=== PATIENT | male | born 1980 | race Caucasian/White ===

== ENCOUNTER 2016-09-15 07:32 | Outpatient (CLI) | payer MEDICARE, MEDICAID ==
[~2016-09-15] VITALS: Ht 166.4 cm; Wt 48.2 kg
[~2016-09-15 07:32] MED LIST: /PANT40TA OR; /PHEN50TA OR; ACET50TA PO; ACET65TA OR; ACET65TA PR; ALLE25CA OR; ALLE25CA PO; ATIV1TAB2 OR; BACTROBAN TOP; BENA25CA PO; BENADRYL PO; BENEPOW8 OR; CALC1250 PO; CALCCHW12 OR; CALCPOW2 PO; CALCTAB22 OR; CARB10SS OR; CARB10SS PO; CETI10TA OR; CETIRIZINE PO; CHLORHEXIDINE; CHLORHEXIDINE OR; COLA100C2 OR; DILA100C OR; DILA100C PO; DILANTIN; DILANTIN PO; DOCU10ELUD PO; DRIS50002 PO; DRISDOL OR; DULCOLAX PR; EPI-PEN; EPI-PEN IM; EPIP0.3I SQ; FERR325T PO; FLEETS ENEMA PR; FORTEO SC; GAS-80CH OR; LACT10SO8 OR; LORTABELIX PO; Lortab PO; MAALSUS OR; MCTOIL PO; MEGA625S PO; METO5TAB2 OR; MIRA255PW PO; MIRALEX OR; MULTI DELYN PO; MULTIVIT OR; MULTLIQ7 PO; MYLASSUD PO; MYLI40DR PO; Mycostatin TOP; NYSTOP TOP; PREV15CA OR; PROTPAK PO; RECLAST IV; SENN15TA2 OR; SENNA-GEN PO; SIME80TA PO; SIMETHICONE PO; TEGR200T OR; TEGRETOL PO; TYLE325T5 PO; VALI5TAB OR; VIT D 2000 PO; VITA; VITAMIN D PO; VITATAB38 PO; ZANT150T OR; ZANT150T PO; ZANTTAB PO; ZITH200S PO; ZOVI400T OR; ZOVI400T PO; ZOVIRAX PO; [UNRECOGNIZED DRUG - OTHER]; [UNRECOGNIZED DRUG - OTHER] PO; [UNRECOGNIZED DRUG - OTHER] PO; [UNRECOGNIZED DRUG - OTHER] PO
[2016-09-15] MEDS ORDERED: ZOLEDRONIC ACID 5 MG in APPROPRIATE DILUENT 1 EA IV ONE (07:45)
[2016-09-15] MEDS ORDERED: HUMI40KI SC (16:13)
== END 2016-09-15 09:00 | disposition home or self-care (01) ==
LOC: M INFU 07:32
PROVIDERS: ATTEND Family Medicine
DX: M81.0 Age-related osteoporosis without current pathological fracture (principal); Z88.0 Allergy status to penicillin; Z88.1 Allergy status to other antibiotic agents; Z79.899 Other long term (current) drug therapy; Z91.048 Other nonmedicinal substance allergy status; Z91.030 Bee allergy status
CPT/HCPCS: 96365; J3489

== ENCOUNTER → 2016-10-14 | Outpatient (CLI) | payer MEDICARE, MEDICAID ==
[~2016-10-14] MED LIST changes: +HUMI40KI SC
[2016-10-14 19:00] LABS: BASO % 0.3 % (0.0-1.0); EOS # 0.3 K/mm3 (0.0-0.50); EOS % 2.6 % (0.0-3.0); LARGE UNSTAINED CELL # 0.2 K/mm3 (0.0-0.4); LYMPH # 3.2 K/mm3 (1.5-4.5); LYMPH % 25.9 % (24.0-44.0); MEAN CORPUSCULAR HEMOGLOBIN 31.9 pg (27.0-33.0); MEAN CORPUSCULAR HGB CONC 35.2 g/dl (32.0-36.5); MEAN CORPUSCULAR VOLUME 90.5 fl (80.0-96.0); MONO # 0.7 K/mm3 (0.0-0.8); MONO % 6.3 % (0.0-5.0); NEUTROPHILS # 7.3 K/mm3 (1.8-7.7); NEUTROPHILS % 62.9 % (36.0-66.0); PLATELET COUNT, AUTOMATED 486 k/mm3 (150-450); WHITE BLOOD COUNT 11.6 K/mm3 (4.0-10.0)
[2016-10-14 19:47] LABS: ERYTHROCYTE SEDIMENTATION RATE 25 mm/hr (0-15)
--- NOTE | 2016-10-14 21:00 | REP ---
BILATERAL FOOT, EIGHT VIEWS: HISTORY: Cellulitis. RIGHT FOOT, FOUR VIEWS: COMPARISON: 01/11/2015 There is no acute fracture or dislocation. The joint spaces are normal in appearance. An osteophyte is present in the inferior calcaneus. IMPRESSION: There is no acute fracture or dislocation. LEFT FOOT, FOUR VIEWS: There is no acute fracture or dislocation. The joint spaces are normal in appearance. An osteophyte is present on the inferior calcaneus. IMPRESSION: There is no acute fracture or dislocation. Signed by José Manuel Guzman MD 10/15/2016 08:03 A
== END ==
LOC: M LAB 18:00
PROVIDERS: ATTEND Physician Assistant Medical
DX: L03.119 Cellulitis of unspecified part of limb (principal)
CPT/HCPCS: 36415; 73630; 85025; 85652; 86140; G0463

== ENCOUNTER → 2016-10-23 | Outpatient (CLI) | payer MEDICARE, MEDICAID ==
[2016-10-23 06:50] LABS: BASO % 0.2 % (0.0-1.0); EOS # 0.2 K/mm3 (0.0-0.50); EOS % 2.4 % (0.0-3.0); LARGE UNSTAINED CELL # 0.2 K/mm3 (0.0-0.4); LARGE UNSTAINED CELL % 2.9 % (0.0-4.0); LYMPH # 2.1 K/mm3 (1.5-4.5); LYMPH % 30.4 % (24.0-44.0); MEAN CORPUSCULAR HEMOGLOBIN 31.9 pg (27.0-33.0); MEAN CORPUSCULAR HGB CONC 34.5 g/dl (32.0-36.5); MEAN CORPUSCULAR VOLUME 92.4 fl (80.0-96.0); MONO # 0.5 K/mm3 (0.0-0.8); MONO % 7.9 % (0.0-5.0); NEUTROPHILS # 3.6 K/mm3 (1.8-7.7); NEUTROPHILS % 56.3 % (36.0-66.0); PLATELET COUNT, AUTOMATED 453 k/mm3 (150-450); WHITE BLOOD COUNT 6.4 K/mm3 (4.0-10.0)
[2016-10-23 07:03] LABS: ALBUMIN 4.2 GM/DL (3.2-5.2); ALKALINE PHOSPHATASE 98 U/L (45-117); ALT/SGPT 34 U/L (12-78); ANION GAP 10 MEQ/L (8-16); AST/SGOT 28 U/L (15-37); BILIRUBIN,TOTAL 0.3 MG/DL (0.2-1.0); BLOOD UREA NITROGEN 11 MG/DL (7-18); CALCIUM LEVEL 8.6 MG/DL (8.5-10.1); CARBAMAZEPINE (TEGRETOL) LEVEL 7.9 UG/ML (4.0-10.0); CARBON DIOXIDE LEVEL 23 MEQ/L (21-32); CHLORIDE LEVEL 104 MEQ/L (98-107); CREATININE FOR GFR 0.78 MG/DL (0.70-1.30); GLOMERULAR FILTRATION RATE > 60.0 (>60); GLUCOSE, FASTING 91 MG/DL (70-105); POTASSIUM SERUM 4.3 MEQ/L (3.5-5.1); SODIUM LEVEL 137 MEQ/L (136-145); TOTAL PROTEIN 7.7 GM/DL (6.4-8.2)
[2016-10-23 08:27] LABS: ERYTHROCYTE SEDIMENTATION RATE 13 mm/hr (0-15)
[2016-10-23 13:12] LABS: ALBUMIN % 59.7 % (55.8-66.1); GAMMA GLOBULIN % 15.8 % (11.1-18.8)
== END ==
LOC: M LAB 05:59
PROVIDERS: ATTEND Family Medicine
DX: D50.9 Iron deficiency anemia, unspecified (principal); E55.9 Vitamin D deficiency, unspecified; K63.89 Other specified diseases of intestine; G40.909 Epilepsy, unspecified, not intractable, without status epilepticus

== ENCOUNTER → 2016-11-08 | Outpatient (REF) | payer MEDICARE, MEDICAID | LOC: M LAB REF 21:09 | PROVIDERS: ATTEND Family Medicine | DX: K63.89 Other specified diseases of intestine (principal) ==

== ENCOUNTER → 2016-11-11 | Outpatient (CLI) | payer MEDICARE, MEDICAID ==
[2016-11-11 16:26] LABS: BASO % 0.1 % (0.0-1.0); EOS # 0.2 K/mm3 (0.0-0.50); EOS % 1.3 % (0.0-3.0); LARGE UNSTAINED CELL # 0.3 K/mm3 (0.0-0.4); LARGE UNSTAINED CELL % 2.2 % (0.0-4.0); LYMPH # 3.2 K/mm3 (1.5-4.5); LYMPH % 26.4 % (24.0-44.0); MEAN CORPUSCULAR HEMOGLOBIN 31.7 pg (27.0-33.0); MEAN CORPUSCULAR HGB CONC 35.1 g/dl (32.0-36.5); MEAN CORPUSCULAR VOLUME 90.3 fl (80.0-96.0); MONO # 0.8 K/mm3 (0.0-0.8); MONO % 6.9 % (0.0-5.0); NEUTROPHILS % 63.1 % (36.0-66.0); PLATELET COUNT, AUTOMATED 482 k/mm3 (150-450); RED CELL DISTRIBUTION WIDTH 11.8 % (11.5-14.5); WHITE BLOOD COUNT 11.1 K/mm3 (4.0-10.0)
[2016-11-11 16:44] LABS: CARBAMAZEPINE (TEGRETOL) LEVEL 11.2 UG/ML (4.0-10.0); PERCENT SATURATION 27.6 % (19.7-37.4)
[2016-11-11 17:33] LABS: ERYTHROCYTE SEDIMENTATION RATE 15 mm/hr (0-15)
== END ==
LOC: M LAB 15:45
PROVIDERS: ATTEND Family Medicine
DX: D50.9 Iron deficiency anemia, unspecified (principal); K63.89 Other specified diseases of intestine; G40.909 Epilepsy, unspecified, not intractable, without status epilepticus; E55.9 Vitamin D deficiency, unspecified

== ENCOUNTER → 2016-11-17 | Outpatient (REF) | payer MEDICARE, MEDICAID | LOC: M SFHCPLAZ 10:02 | PROVIDERS: ATTEND Family Medicine | DX: L03.115 Cellulitis of right lower limb (principal) | CPT/HCPCS: 36415; 82785; 86140; G0463 ==

== ENCOUNTER → 2016-11-18 | Outpatient (CLI) | payer MEDICARE, MEDICAID ==
[2016-11-18 16:45] LABS: BASO % 0.3 % (0.0-1.0); EOS # 0.3 K/mm3 (0.0-0.50); EOS % 2.2 % (0.0-3.0); LARGE UNSTAINED CELL # 0.2 K/mm3 (0.0-0.4); LARGE UNSTAINED CELL % 1.8 % (0.0-4.0); LYMPH # 3.2 K/mm3 (1.5-4.5); LYMPH % 25.5 % (24.0-44.0); MEAN CORPUSCULAR HGB CONC 35.5 g/dl (32.0-36.5); MEAN CORPUSCULAR VOLUME 90.3 fl (80.0-96.0); MONO # 0.8 K/mm3 (0.0-0.8); MONO % 6.4 % (0.0-5.0); NEUTROPHILS # 7.5 K/mm3 (1.8-7.7); NEUTROPHILS % 63.7 % (36.0-66.0); PLATELET COUNT, AUTOMATED 503 k/mm3 (150-450); RED CELL DISTRIBUTION WIDTH 12.4 % (11.5-14.5); WHITE BLOOD COUNT 11.7 K/mm3 (4.0-10.0)
== END ==
LOC: M LAB 15:41
PROVIDERS: ATTEND Family Medicine
DX: L03.115 Cellulitis of right lower limb (principal)

== ENCOUNTER → 2016-12-11 | Outpatient (REF) | payer MEDICARE, MEDICAID ==
[~2016-12-11] MED LIST changes: +ACYC400T PO; +BENA25CA4 PO; +BUDE3CAP PO; +CERACRE EX; +CETI10TA PO; +D 50CAP PO; +DILA50HA PO; +EPIP0.3I2 IM; +EQ A1CRE3 EXT; +GAS80CHW PO; +HYDR25T PO; +HYDRCRE EX; +LEVA750T PO; +OCTR100I SQ; +VITA5ELUD PO; +[UNRECOGNIZED DRUG - CODE] PO
== END ==
LOC: M SFHCPLAZ 09:47
PROVIDERS: ATTEND Family Medicine
DX: R19.7 Diarrhea, unspecified (principal)
CPT/HCPCS: 87507; G0463

== ENCOUNTER → 2016-12-12 | Outpatient (CLI) | payer MEDICARE, MEDICAID ==
[~2016-12-12] MED LIST changes: -ACYC400T PO; -LEVA750T PO; -OCTR100I SQ
[2016-12-12 18:39] LABS: ALBUMIN 4.2 GM/DL (3.2-5.2); ALBUMIN/GLOBULIN RATIO 0.95 (1.00-1.93); ALKALINE PHOSPHATASE 159 U/L (45-117); ALT/SGPT 37 U/L (12-78); ANION GAP 15 MEQ/L (8-16); AST/SGOT 25 U/L (15-37); BILIRUBIN,TOTAL 0.2 MG/DL (0.2-1.0); BLOOD UREA NITROGEN 59 MG/DL (7-18); CALCIUM LEVEL 9.2 MG/DL (8.5-10.1); CARBON DIOXIDE LEVEL 18 MEQ/L (21-32); CHLORIDE LEVEL 90 MEQ/L (98-107); CREATININE FOR GFR 1.19 MG/DL (0.70-1.30); GLOMERULAR FILTRATION RATE > 60.0 (>60); GLUCOSE, FASTING 138 MG/DL (70-105); POTASSIUM SERUM 3.5 MEQ/L (3.5-5.1); SODIUM LEVEL 123 MEQ/L (136-145); TOTAL PROTEIN 8.6 GM/DL (6.4-8.2)
[2016-12-12 19:18] LABS: MEAN CORPUSCULAR HEMOGLOBIN 31.4 pg (27.0-33.0); MEAN CORPUSCULAR HGB CONC 35.2 g/dl (32.0-36.5); MEAN CORPUSCULAR VOLUME 89.1 fl (80.0-96.0); PLATELET COUNT, AUTOMATED 748 k/mm3 (150-450); RED CELL DISTRIBUTION WIDTH 11.8 % (11.5-14.5); WHITE BLOOD COUNT 14.5 K/mm3 (4.0-10.0)
[2016-12-12 20:10] LABS: BANDS 1 % (< 11)
== END ==
LOC: M LAB 15:44
PROVIDERS: ATTEND Family Medicine
DX: R19.7 Diarrhea, unspecified (principal)

== ENCOUNTER 2016-12-15 13:42 | Inpatient (IN) | payer MEDICARE, MEDICAID ==
[~2016-12-15] VITALS: Ht 172.7 cm; Wt 46.8 kg
[~2016-12-15 13:42] MED LIST changes: -BENA25CA4 PO; -BUDE3CAP PO; -CERACRE EX; -CETI10TA PO; -D 50CAP PO; -DILA50HA PO; -EPIP0.3I2 IM; -EQ A1CRE3 EXT; -GAS80CHW PO; -HYDR25T PO; -HYDRCRE EX; -LEVA750T PO; -VITA5ELUD PO; -[UNRECOGNIZED DRUG - CODE] PO
[2016-12-15] MEDS ORDERED: [UNRECOGNIZED DRUG - CODE] PO (14:02)
[2016-12-15] MEDS ORDERED: D 50CAP PO (14:02)
[2016-12-15] MEDS ORDERED: SODIUM CHLORIDE 0.9% 1000 ML IV ONE (14:45)
[2016-12-15] MEDS ORDERED: CALC1250 PO (14:58)
[2016-12-15] MEDS ORDERED: BENA25CA4 PO (14:58)
[2016-12-15] MEDS ORDERED: DILA50HA PO ×3 (14:58→15:00)
[2016-12-15] MEDS ORDERED: SIME80TA PO (14:58)
[2016-12-15] MEDS ORDERED: VITA5ELUD PO (15:04)
[2016-12-15] MEDS ORDERED: GAS80CHW PO (15:04)
[2016-12-15] MEDS ORDERED: BUDE3CAP PO (15:07)
[2016-12-15] MEDS ORDERED: CETI10TA PO (15:07)
[2016-12-15] MEDS ORDERED: HYDR25T PO (15:07)
[2016-12-15] MEDS ORDERED: EQ A1CRE3 EXT (15:12)
[2016-12-15] MEDS ORDERED: HYDRCRE EX (15:12)
[2016-12-15] MEDS ORDERED: CERACRE EX (15:12)
[2016-12-15] MEDS ORDERED: EPIP0.3I2 IM (15:16)
[2016-12-15] MEDS ORDERED: hydrOXYzine 25 MG TAB PO PRN (15:45)
[2016-12-15] MEDS ORDERED: diphenhydrAMINE 25 MG CAP PO PRN (15:45)
[2016-12-15] MEDS: CARBAMAZEPINE 200 MG/10 ML PO SCH ×2 (16:00→21:45)
[2016-12-15] MEDS: CALCIUM CARB SUSP 1250MG/5ML UNIT DOSE CUP PO SCH ×2 (16:00→21:46)
[2016-12-15] MEDS: SIMETHICONE 80 MG CHEW TAB PO SCH ×2 (16:00→21:46)
[2016-12-15] MEDS: BUDESONIDE EC 3 MG CAP (ENTOCORT EC) PO SCH ×2 (16:00→21:46)
[2016-12-15 16:37] LABS: MEAN CORPUSCULAR HEMOGLOBIN 31.5 pg (27.0-33.0); MEAN CORPUSCULAR HGB CONC 36.3 g/dl (32.0-36.5); MEAN CORPUSCULAR VOLUME 86.7 fl (80.0-96.0); RED CELL DISTRIBUTION WIDTH 11.8 % (11.5-14.5); WHITE BLOOD COUNT 17.8 K/mm3 (4.0-10.0)
[2016-12-15 16:54] LABS: CARBAMAZEPINE (TEGRETOL) LEVEL 8.6 UG/ML (4.0-10.0)
[2016-12-15 17:32] LABS: BANDS 2 % (< 11); EOSINOPHILS 2 % (0-5)
--- NOTE | 2016-12-15 17:52 | REP ---
AP PORTABLE CHEST: 12/15/2016: Comparison: 11/30/2014, 03/03/2014. Clinical history: Possible infiltrate. Findings: Single portable view shows no evidence of effusion. There is no lateral pleural thickening or apical scarring. Slight rotation of the chest. Slight elevation of the right diaphragm exaggerated by obliquity. No visible consolidation, atelectasis or mass and no cardiomegaly or edema. The aorta is normal. The bones are grossly intact. There is no free air under the diaphragm. Stomach bubble and the left colon are well inflated in the left upper quadrant. Impression: 1. Slight elevation of the right diaphragm, but no visible infiltrate, effusion, cardiomegaly or edema. Negative portable chest. Signed by Chong Richard MD 12/15/2016 08:36 P
[2016-12-15 18:05] LABS: ALBUMIN 4.2 GM/DL (3.2-5.2); ALBUMIN/GLOBULIN RATIO 0.93 (1.00-1.93); ALKALINE PHOSPHATASE 139 U/L (45-117); ALT/SGPT 34 U/L (12-78); ANION GAP 17 MEQ/L (8-16); AST/SGOT 29 U/L (15-37); BILIRUBIN,TOTAL 0.2 MG/DL (0.2-1.0); BLOOD UREA NITROGEN 78 MG/DL (7-18); CALCIUM LEVEL 8.7 MG/DL (8.5-10.1); CARBON DIOXIDE LEVEL 15 MEQ/L (21-32); CHLORIDE LEVEL 87 MEQ/L (98-107); GLOMERULAR FILTRATION RATE > 60.0 (>60); GLUCOSE, FASTING 112 MG/DL (70-105); MAGNESIUM LEVEL 2.2 MG/DL (1.8-2.4); POTASSIUM SERUM 3.7 MEQ/L (3.5-5.1); TOTAL PROTEIN 8.7 GM/DL (6.4-8.2)
[2016-12-15 18:07] LABS: SODIUM LEVEL 119 MEQ/L (136-145)
--- NOTE | 2016-12-15 18:22 | IPNPDOC ---
Text Note Date of Service The patient was seen on 12/15/16. NOTE Subjective: Patient is an 81 year old male with a PMHx of Mental retardation 2/2 anoxic brain injury, Seizure disorder, Chronic anemia, Chrons disease s/p colostomy, HSV, Hx of Nephrolithiasis, Osteoporosis, and GERD who presented to the ER because of increased output from his ostomy site and low sodium levels. Family has noted that he has not been having fevers at home, just that the output from his colostomy site has become liquid in nature. They have seen Dr. Lois Myers today and were sent as a direct admission, but presented to the ER instead. Patient is non-verbal at baseline and is unable to provide any other details to the story. Objective: Vitals (See below) General: Lying in bed, no acute distress, awake + alert HEENT: NC, AT CVS: RRR, +S1S2 Lungs: Fair air entry b/l, -w/r/r Abdomen: Soft, ND, NT, +BSx4; + Colostomy (liquid stool) Extremities: +PPx4, - Edema, - Calf tenderness Assessment and plan: 1. Hypovolemic Hyponatremia, Isotonic - Asymptomatic - Review of labs shows that he has been hyponatremic since at least 12/12/2016 - Physical shows that he appears dehydrated - Labs shows that he has an elevation in creatinine - Serum osmolality is 279 - Will start Gentle IV fluid hydration - Will check CMP p1acvhf initially 2. Elevated Creatine - likely 2/2 acute kidney injury - likely 2/2 pre-renal etiology - will check urine electrolytes, and urinalysis - will c/w gentle IV fluid hydration 3. Increased output via colostomy - possibly 2/2 gastroenteritis, possibly flare of inflammatory bowel disease - Physical without any abdominal tenderness - WBC elevated - GI panel from 3 days ago has been negative - will check ESR / CRP - Will check blood cultures, ua, urinalysis, cxr - will start meropenem (coverage of intra-abdominal source of infection) - will hold off on steroids pending ESR / CRP 3. Hx of Seizures - no seizures in last 3 years - phenytoin level low - will give one dose via IV - c/w PO medications - f/u AM phenytoin level 4. Normocytic anemia - Hg at baseline - will follow 5. 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 Crohn disease s/p colostomy - will check ESR / CRP - c/w budesonide 7.HSV 8. Hx of Nephrolithiasis 9. Osteoporosis 10. GERD 11. DVT prophylaxis - c/w SCDs VS,Fishbone, I+O VS, Fishbone, I+O Laboratory Tests 12/15/16 15:39 Vital Signs Date Time Temp Pulse Resp B/P (MAP) Pulse Ox O2 Delivery O2 Flow Rate FiO2 12/15/16 13:43 97.6 104 16 115/64 (81) 100 Room Air ANGELA TOMLINSON MD December 15, 2016 18:22
[2016-12-15] MEDS ORDERED: PHENYTOIN 100 MG/2 ML VIAL (J1165) IV ONE (19:00)
[2016-12-15 19:22] LABS: ERYTHROCYTE SEDIMENTATION RATE 41 mm/hr (0-15)
[2016-12-15 19:28] LABS: ANION GAP 14 MEQ/L (8-16); BLOOD UREA NITROGEN 72 MG/DL (7-18); CALCIUM LEVEL 8.8 MG/DL (8.5-10.1); CARBON DIOXIDE LEVEL 17 MEQ/L (21-32); CHLORIDE LEVEL 90 MEQ/L (98-107); CREATININE FOR GFR 1.18 MG/DL (0.70-1.30); GLOMERULAR FILTRATION RATE > 60.0 (>60); GLUCOSE, FASTING 111 MG/DL (70-105); POTASSIUM SERUM 3.7 MEQ/L (3.5-5.1); SODIUM LEVEL 121 MEQ/L (136-145)
[2016-12-15 20:13] VITALS: BP 103/61
[2016-12-15] MEDS: MEROPENEM INJ 1 GM in D5W MINI-BAG PLUS 100 ML IV SCH (20:55)
[2016-12-15] MEDS: NS 1,000 ML IV SCH (20:55)
[2016-12-15 21:20] VITALS: BP 97/56
[2016-12-15 21:21] LABS: INR 0.99
[2016-12-15 21:25] LABS: ANION GAP 13 MEQ/L (8-16); BLOOD UREA NITROGEN 70 MG/DL (7-18); CALCIUM LEVEL 8.4 MG/DL (8.5-10.1); CARBON DIOXIDE LEVEL 19 MEQ/L (21-32); CHLORIDE LEVEL 91 MEQ/L (98-107); CREATININE FOR GFR 1.16 MG/DL (0.70-1.30); GLOMERULAR FILTRATION RATE > 60.0 (>60); GLUCOSE, FASTING 119 MG/DL (70-105); POTASSIUM SERUM 3.5 MEQ/L (3.5-5.1); SODIUM LEVEL 123 MEQ/L (136-145)
[2016-12-15] MEDS: PHENYTOIN 50 MG CHEW TABLET PO SCH (21:46)
[2016-12-15] MEDS: HEPARIN SOD (PORCINE) 5000 UNITS/ML VIAL SQ SCH (21:48)
--- NOTE | 2016-12-15 23:04 | ECGEPIP ---
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 CONSIDER INCOMPLETE LEFT BUNDLE BRANCH BLOCK ABNORMAL RHYTHM ECG COMPARED TO THE LAST 2 TRACINGS IN THE SYSTEM, HEART RATE IS NOW MUCH SLOWER Electronically Signed On 12-15-2016 23:04:10 EDT by Nadeem Love
[2016-12-16] VITALS: BP 98/62
[2016-12-16] MEDS: ONDANSETRON 4MG/2ML VIAL (J2405) IV PRN ×2 (00:43→06:33)
[2016-12-16 01:25] LABS: ANION GAP 11 MEQ/L (8-16); BLOOD UREA NITROGEN 64 MG/DL (7-18); CALCIUM LEVEL 8.8 MG/DL (8.5-10.1); CARBON DIOXIDE LEVEL 20 MEQ/L (21-32); CHLORIDE LEVEL 94 MEQ/L (98-107); CREATININE FOR GFR 0.99 MG/DL (0.70-1.30); GLOMERULAR FILTRATION RATE > 60.0 (>60); GLUCOSE, FASTING 116 MG/DL (70-105); POTASSIUM SERUM 3.2 MEQ/L (3.5-5.1); SODIUM LEVEL 125 MEQ/L (136-145)
[2016-12-16] MEDS: MEROPENEM INJ 1 GM in D5W MINI-BAG PLUS 100 ML IV SCH ×3 (03:28→18:03)
[2016-12-16 04:00] VITALS: BP 99/57
[2016-12-16] MEDS: HEPARIN SOD (PORCINE) 5000 UNITS/ML VIAL SQ SCH ×3 (05:19→21:20)
[2016-12-16 06:23] LABS: BASO % 0.2 % (0.0-1.0); EOS # 0.2 K/mm3 (0.0-0.50); EOS % 0.9 % (0.0-3.0); LARGE UNSTAINED CELL # 0.2 K/mm3 (0.0-0.4); LARGE UNSTAINED CELL % 0.9 % (0.0-4.0); LYMPH # 2.2 K/mm3 (1.5-4.5); LYMPH % 9.5 % (24.0-44.0); MEAN CORPUSCULAR HEMOGLOBIN 31.3 pg (27.0-33.0); MEAN CORPUSCULAR HGB CONC 36.4 g/dl (32.0-36.5); MEAN CORPUSCULAR VOLUME 86.1 fl (80.0-96.0); MONO % 4.9 % (0.0-5.0); NEUTROPHILS # 17.8 K/mm3 (1.8-7.7); NEUTROPHILS % 83.7 % (36.0-66.0); PLATELET COUNT, AUTOMATED 688 k/mm3 (150-450); RED CELL DISTRIBUTION WIDTH 11.9 % (11.5-14.5); WHITE BLOOD COUNT 21.3 K/mm3 (4.0-10.0)
[2016-12-16 06:42] LABS: ALBUMIN 3.8 GM/DL (3.2-5.2); ALKALINE PHOSPHATASE 130 U/L (45-117); ALT/SGPT 30 U/L (12-78); ANION GAP 10 MEQ/L (8-16); AST/SGOT 23 U/L (15-37); BILIRUBIN,TOTAL 0.3 MG/DL (0.2-1.0); BLOOD UREA NITROGEN 51 MG/DL (7-18); CALCIUM LEVEL 8.6 MG/DL (8.5-10.1); CARBON DIOXIDE LEVEL 19 MEQ/L (21-32); CHLORIDE LEVEL 97 MEQ/L (98-107); CREATININE FOR GFR 0.91 MG/DL (0.70-1.30); GLOMERULAR FILTRATION RATE > 60.0 (>60); GLUCOSE, FASTING 104 MG/DL (70-105); MAGNESIUM LEVEL 2.2 MG/DL (1.8-2.4); POTASSIUM SERUM 3.9 MEQ/L (3.5-5.1); SODIUM LEVEL 126 MEQ/L (136-145); TOTAL PROTEIN 7.6 GM/DL (6.4-8.2)
[2016-12-16 07:30] VITALS: BP 91/57
[2016-12-16] MEDS: SIMETHICONE 80 MG CHEW TAB PO SCH ×3 (08:34→21:20)
[2016-12-16] MEDS: PHENYTOIN 50 MG CHEW TABLET PO SCH ×3 (08:35→21:19)
[2016-12-16] MEDS: CALCIUM CARB SUSP 1250MG/5ML UNIT DOSE CUP PO SCH ×3 (08:35→21:19)
[2016-12-16] MEDS: VITAMIN D 1,000 INTERNATIONAL UNITS TABLET PO SCH (08:35)
[2016-12-16] MEDS: CETIRIZINE (ZyrTEC) 10 MG TAB PO SCH (08:35)
[2016-12-16] MEDS: CARBAMAZEPINE 200 MG/10 ML PO SCH ×3 (08:35→21:20)
[2016-12-16] MEDS: BUDESONIDE EC 3 MG CAP (ENTOCORT EC) PO SCH ×3 (09:00→21:19)
[2016-12-16] MEDS ORDERED: GASTROGRAFIN SOLUTION 30ML PO ONE (09:30)
[2016-12-16] MEDS: NS 1,000 ML IV SCH ×2 (09:36→18:03)
[2016-12-16] MEDS ORDERED: GASTROGRAFIN SOLUTION 30ML (Q9963) PO ONE (10:00)
[2016-12-16 10:45] VITALS: BP 107/59
--- NOTE | 2016-12-16 11:10 | IPNPDOC ---
Subjective Date Seen The patient was seen on 12/16/16. Subjective Chief Complaint/HPI The patient is a 36-year-old male admitted with a reason for visit of Diarrhea; Hyponatremia. Events since last encounter Pt's mom and step dad at bedside. He seems to be doing alright this morning. They have no new concerns althought are anxious to find out the source of his condition. General: Reports: ROS Unobtainable Objective Physical Examination General Exam: Positive: Alert, No Acute Distress ENT Exam: Positive: Mucous membr. moist/pink Neck Exam: Positive: Supple Chest Exam: Positive: Clear to auscultation, Normal air movement Heart Exam: Positive: Tachycardic, Regular Rhythm Abdomen Exam: Positive: BS Hyperactive, Soft, Tenderness (difficult to determine d/t MR, pt grimaces whenever/wherever he is touched) Extremity Exam: Negative: Edema Skin Exam: Negative: Nl turgor and temperature Assessment /Plan Problems (1) Hyponatremia Status: Acute Response to Treatment: Improving Problem Specific Plan: Monitor Clinically, Repeat Labs Problem Text: acute hypotonic hypovolemic change to PICC given poor peripheral access slow improvement with NS 40 cc/hr, NA 126 this morning, 121 on admission. (2) Leukocytosis Status: Acute Response to Treatment: Worse Discussed With: Family with Pt Consent Problem Specific Plan: Monitor Clinically, Repeat Labs Problem Text: meropenem D2 12/15/16 BCX -2 12/14/16 CRP 0.3/ESR 40-obviously not c/w IBD 12/11/16 GI panel - WBC increased from 18 to 21 overnight, GI panel Neg, colostomy continues to have watery brown stool. Pt is afebrile. (3) Diarrhea Status: Acute Discussed With: Family with Pt Consent Problem Specific Plan: Consult Specialist, Monitor Clinically Problem Text: 05/06/16-09/17/16 Humira 20 q2W s improvement of weight loss/diarrhea/inflammatory markers 04/2016 SBFT s obvious disease 03/2016 [facility] c/w Crohn's c high risk of aggressive disease follows trang Zavala as outpatient (4) Normocytic anemia Status: Acute Problem Specific Plan: Monitor Clinically, Repeat Labs Problem Text: Hgb down to 11.3, today, he is receiving IVF and was previously hospitalized and on IVF as well. Normcytic, Cont to monitor. (5) Seizure disorder Status: Chronic Response to Treatment: Stable Problem Specific Plan: Monitor Clinically Problem Text: Stable on HD phenytoin/carba 12/15/16 pheny/carba 02/22-stable (6) Mental retardation Status: Chronic Problem Specific Plan: Monitor Clinically Plan/VTE VTE Prophylaxis Ordered?: Yes Plan/Urinary Catheter Reason for insertion/continuin: Critical Pt monitoring VS, I&O, 24H, Fishbone Vital Signs/I&O Vital Signs Date Time Temp Pulse Resp B/P (MAP) Pulse Ox O2 Delivery O2 Flow Rate FiO2 12/16/16 08:00 99 12/16/16 07:30 98.4 18 91/57 (68) 99 Room Air I&O- Last 24 Hours up to 6 AM 12/16/16 06:00 Intake Total 1060 ml Balance 1060 ml Laboratory Data 24H LABS Laboratory Tests 2 12/15/16 15:39: Neutrophils 72, Band Neutrophils 2, Lymphocytes (Manual) 19, Monocytes (Manual) 5, Eosinophils (Manual) 2, Platelet Estimate INCREASED, Red Blood Cell Morphology NORMAL, Erythrocyte Sedimentation Rate 41H, Anion Gap 17H, Glomerular Filtration Rate > 60.0, Osmolality 279, Blood Urea Nitrogen 78H, Creatinine 1.40H, Sodium Level 119*L, Potassium Level 3.7, Chloride Level 87L, Carbon Dioxide Level 15L, Calcium Level 8.7, Aspartate Amino Transf (AST/SGOT) 29, Alanine Aminotransferase (ALT/SGPT) 34, Alkaline Phosphatase 139H, Total Bilirubin 0.2, Total Protein 8.7H, Albumin 4.2, Magnesium Level 2.2, Albumin/ Globulin Ratio 0.93L, Phenytoin (Dilantin) Level 7.3L, Carbamazepine (Tegretol) Level 8.6 12/15/16 18:34: Anion Gap 14, Glomerular Filtration Rate > 60.0, Blood Urea Nitrogen 72H, Creatinine 1.18, Sodium Level 121L, Potassium Level 3.7, Chloride Level 90L, Carbon Dioxide Level 17L, Calcium Level 8.8, C-Reactive Protein, Quantitative 0.31H 12/15/16 20:51: Anion Gap 13, Glomerular Filtration Rate > 60.0, Blood Urea Nitrogen 70H, Creatinine 1.16, Sodium Level 123L, Potassium Level 3.5, Chloride Level 91L, Carbon Dioxide Level 19L, Calcium Level 8.4L, Prothrombin Time 13.2, Prothromb Time International Ratio 0.99, Lactic Acid Level 1.2 12/15/16 22:59: 12/16/16 00:59: Anion Gap 11, Glomerular Filtration Rate > 60.0, Blood Urea Nitrogen 64H, Creatinine 0.99, Sodium Level 125L, Potassium Level 3.2L, Chloride Level 94L, Carbon Dioxide Level 20L, Calcium Level 8.8 12/16/16 06:08: Anion Gap 10, Glomerular Filtration Rate > 60.0, Blood Urea Nitrogen 51H, Creatinine 0.91, Sodium Level 126L, Potassium Level 3.9#, Chloride Level 97L, Carbon Dioxide Level 19L, Calcium Level 8.6, White Blood Count 21.3H, Red Blood Count 3.76L, Hemoglobin 11.8L, Hematocrit 32.4L, Mean Corpuscular Volume 86.1, Mean Corpuscular Hemoglobin 31.3, Mean Corpuscular Hemoglobin Concent 36.4, Red Cell Distribution Width 11.9, Platelet Count 688H, Neutrophils (%) (Auto) 83.7H , Lymphocytes (%) (Auto) 9.5L, Monocytes (%) (Auto) 4.9, Eosinophils (%) (Auto) 0.9, Basophils (%) (Auto) 0.2, Neutrophils # (Auto) 17.8H, Lymphocytes # (Auto) 2.2, Monocytes # (Auto) 1.0H, Eosinophils # (Auto) 0.2, Basophils # (Auto) 0.0, Large Unclassified Cells % 0.9, Large Unclassified Cells # 0.2, Aspartate Amino Transf (AST/SGOT) 23, Alanine Aminotransferase (ALT/SGPT) 30, Alkaline Phosphatase 130H, Total Bilirubin 0.3, Total Protein 7.6, Albumin 3.8, Magnesium Level 2.2, C-Reactive Protein, Quantitative 0.33H, Albumin/Globulin Ratio 1.00, Phenytoin (Dilantin) Level 6.3L CBC/BMP Laboratory Tests 12/15/16 15:39 Calcium Level 8.7, Aspartate Amino Transf (AST/SGOT) 29, Alanine Aminotransferase (ALT/SGPT) 34, Alkaline Phosphatase 139 H, Total Bilirubin 0.2 , Total Protein 8.7 H, Albumin 4.2 12/15/16 18:34 Calcium Level 8.8 12/15/16 20:51 Calcium Level 8.4 L 12/16/16 00:59 Calcium Level 8.8 12/16/16 06:08 Red Blood Count 3.76 L, Mean Corpuscular Volume 86.1, Mean Corpuscular Hemoglobin 31.3, Mean Corpuscular Hemoglobin Concent 36.4, Red Cell Distribution Width 11.9, Neutrophils (%) (Auto) 83.7 H, Lymphocytes (%) (Auto) 9.5 L, Monocytes (%) (Auto) 4.9, Eosinophils (%) (Auto) 0.9, Basophils (%) (Auto ) 0.2, Neutrophils # (Auto) 17.8 H, Lymphocytes # (Auto) 2.2, Monocytes # (Auto ) 1.0 H, Eosinophils # (Auto) 0.2, Basophils # (Auto) 0.0, Calcium Level 8.6, Aspartate Amino Transf (AST/SGOT) 23, Alanine Aminotransferase (ALT/SGPT) 30, Alkaline Phosphatase 130 H, Total Bilirubin 0.3, Total Protein 7.6, Albumin 3.8 Microbiology Microbiology 12/15/16 Blood Culture, Received Pending 12/15/16 Blood Culture, Received Pending RADHA LIRIANO PA-C December 16, 2016 11:10 Cedrick Myers M.D. December 16, 2016 13:43
[2016-12-16 12:00] VITALS: BP 112/83
--- NOTE | 2016-12-16 17:22 | REP ---
CT ABDOMEN AND PELVIS WITH IV CONTRAST ONLY: HISTORY: Diarrhea. COMPARISON: Multiple, the latest 02/09/2016 CONTRAST: 100 mL of Isovue-370 There is no change in the lung bases. There are no pleural or pericardial effusions. The liver, spleen, gallbladder, pancreas, adrenal glands, and kidneys are unchanged remaining within normal limits. The abdominal aorta and periaortic regions are unchanged remaining within normal limits. The patient is status post colectomy with ileostomy. There is no intestinal obstruction. Tiny pockets of free air are seen particularly in the postsurgical wound, but representing a change from the prior exam. There is no evidence of free fluid. CT pelvis: There is no free pelvic fluid or air. There is no pelvic mass or adenopathy. Bone window technique throughout the examination shows no change in the osseous structures. IMPRESSION: Tiny dots of free air along the anterior abdominal wall, but possibly related to a wound infection. Certainly, I cannot completely discount the possibility of a perforated hollow viscus. This needs to be correlated clinically. A stat report was generated at the time of this dictation and a call was placed to the ICU to talk to the provider in charge of this patient. Findings were discussed with Dr. Myers. It should also be stated that this examination was entered as a routine examination ordered and performed at 10:30 a.m. and it has been brought to my attention for the first time for interpretation today at this time. Signed by Kishan Rhodes DO 12/17/2016 11:07 A
[2016-12-16] MEDS: ACETAMINOPHEN TAB 650MG DOSE (2X325MG) PO PRN (17:50)
[2016-12-16 20:00] VITALS: BP 93/60
[2016-12-17] VITALS: BP 90/53
[2016-12-17] MEDS: MEROPENEM INJ 1 GM in D5W MINI-BAG PLUS 100 ML IV SCH ×3 (02:55→17:35)
[2016-12-17] MEDS: ONDANSETRON 4MG/2ML VIAL (J2405) IV PRN (02:55)
[2016-12-17 04:00] VITALS: BP 90/59
[2016-12-17 05:23] LABS: ALBUMIN 3.3 GM/DL (3.2-5.2); ALBUMIN/GLOBULIN RATIO 0.87 (1.00-1.93); ALKALINE PHOSPHATASE 113 U/L (45-117); ALT/SGPT 31 U/L (12-78); ANION GAP 7 MEQ/L (8-16); AST/SGOT 23 U/L (15-37); BILIRUBIN,TOTAL 0.2 MG/DL (0.2-1.0); BLOOD UREA NITROGEN 28 MG/DL (7-18); CALCIUM LEVEL 7.9 MG/DL (8.5-10.1); CARBON DIOXIDE LEVEL 22 MEQ/L (21-32); CHLORIDE LEVEL 101 MEQ/L (98-107); CREATININE FOR GFR 0.78 MG/DL (0.70-1.30); GLOMERULAR FILTRATION RATE > 60.0 (>60); GLUCOSE, FASTING 95 MG/DL (70-105); POTASSIUM SERUM 3.7 MEQ/L (3.5-5.1); SODIUM LEVEL 130 MEQ/L (136-145); TOTAL PROTEIN 7.1 GM/DL (6.4-8.2)
[2016-12-17] MEDS: HEPARIN SOD (PORCINE) 5000 UNITS/ML VIAL SQ SCH ×3 (05:35→21:08)
[2016-12-17 05:56] LABS: BASO % 0.2 % (0.0-1.0); EOS # 0.2 K/mm3 (0.0-0.50); EOS % 1.2 % (0.0-3.0); LARGE UNSTAINED CELL # 0.2 K/mm3 (0.0-0.4); LARGE UNSTAINED CELL % 1.5 % (0.0-4.0); LYMPH # 2.4 K/mm3 (1.5-4.5); LYMPH % 18.5 % (24.0-44.0); MEAN CORPUSCULAR HEMOGLOBIN 30.7 pg (27.0-33.0); MEAN CORPUSCULAR HGB CONC 34.3 g/dl (32.0-36.5); MEAN CORPUSCULAR VOLUME 89.5 fl (80.0-96.0); MONO # 0.8 K/mm3 (0.0-0.8); MONO % 6.6 % (0.0-5.0); NEUTROPHILS # 9.1 K/mm3 (1.8-7.7); PLATELET COUNT, AUTOMATED 629 k/mm3 (150-450); RED CELL DISTRIBUTION WIDTH 11.8 % (11.5-14.5); WHITE BLOOD COUNT 12.7 K/mm3 (4.0-10.0)
[2016-12-17 06:36] LABS: ERYTHROCYTE SEDIMENTATION RATE 57 mm/hr (0-15)
[2016-12-17 08:00] VITALS: BP 87/55
[2016-12-17] MEDS ORDERED: ISOVUE-M 300 61% 15ML VIAL (Q9967) As Ordered ONE (08:02)
[2016-12-17] MEDS ORDERED: ISOVUE-370 76% 100ML VIAL (Q9967) As Ordered ONE (08:03)
[2016-12-17] MEDS: CARBAMAZEPINE 200 MG/10 ML PO SCH ×3 (08:12→21:08)
[2016-12-17] MEDS: SIMETHICONE 80 MG CHEW TAB PO SCH ×3 (08:13→21:07)
[2016-12-17] MEDS: BUDESONIDE EC 3 MG CAP (ENTOCORT EC) PO SCH ×3 (08:13→21:07)
[2016-12-17] MEDS: CETIRIZINE (ZyrTEC) 10 MG TAB PO SCH (08:13)
[2016-12-17] MEDS: CALCIUM CARB SUSP 1250MG/5ML UNIT DOSE CUP PO SCH ×3 (08:13→21:07)
[2016-12-17] MEDS: VITAMIN D 1,000 INTERNATIONAL UNITS TABLET PO SCH (08:13)
[2016-12-17] MEDS: PHENYTOIN 50 MG CHEW TABLET PO SCH ×3 (08:21→21:07)
--- NOTE | 2016-12-17 08:38 | IPNPDOC ---
Subjective Date Seen The patient was seen on 12/17/16. Subjective Chief Complaint/HPI The patient is a 36-year-old male admitted with a reason for visit of Diarrhea; Hyponatremia. Events since last encounter mother at bedside. States he seems better. Ate some yesterday. Still with loose stool in ostomy. Constitutional: Denies: Chills, Fever Pulmonary: Denies: Dyspnea, Cough Cardiovascular: Denies: Chest Pain Gastrointestinal: Reports: Diarrhea, Denies: Nausea, Vomiting, Abdominal Pain Objective Physical Examination General Exam: Positive: Alert, No Acute Distress ENT Exam: Positive: Mucous membr. moist/pink Neck Exam: Positive: Supple Chest Exam: Positive: Clear to auscultation, Normal air movement Heart Exam: Positive: Tachycardic, Regular Rhythm Abdomen Exam: Positive: BS Hyperactive, Soft, Other (loose brown stool in ostomy bag), Negative: Tenderness Extremity Exam: Negative: Edema Skin Exam: Negative: Nl turgor and temperature Assessment /Plan Problems (1) Hyponatremia Status: Acute Response to Treatment: Improving Problem Specific Plan: Monitor Clinically, Repeat Labs Problem Text: 12/17 - Sodium improved. Na+ = 130 today on NS at 40 cc/hour (2) Leukocytosis Status: Acute Response to Treatment: Worse Discussed With: Family with Pt Consent Problem Specific Plan: Monitor Clinically, Repeat Labs Problem Text: 12/17 - meropenem D3 WBC trending down. Afebrile. B/C negative. Dr. Olivas evaluated for ? free air - per verbal discussion, does not feel he has peritonitis Still with loose stool in Ostomy. GI panel negative 12/11/16 (3) Diarrhea Status: Acute Discussed With: Family with Pt Consent Problem Specific Plan: Consult Specialist, Monitor Clinically Problem Text: 05/06/16-09/17/16 Humira 20 q2W s improvement of weight loss/diarrhea/inflammatory markers 04/2016 SBFT s obvious disease 03/2016 [facility] c/w Crohn's c high risk of aggressive disease follows trang Zavala as outpatient (4) Normocytic anemia Status: Acute Problem Specific Plan: Monitor Clinically, Repeat Labs Problem Text: 12/17/16 - Hgb trending down further = 10.8 today - on slow rate IVF. No blood in Ostomy. continue to monitor trend Chronic anemia - baseline around 13. Occult blood negative 10/2016 (5) Seizure disorder Status: Chronic Response to Treatment: Stable Problem Specific Plan: Monitor Clinically Problem Text: Stable on HD phenytoin/carba 12/15/16 pheny/carba 02/22-stable (6) Mental retardation Status: Chronic Problem Specific Plan: Monitor Clinically Plan/VTE VTE Prophylaxis Ordered?: Yes (SQ heparin) Plan/Urinary Catheter Reason for insertion/continuin: Critical Pt monitoring VS, I&O, 24H, Fishbone Vital Signs/I&O Vital Signs Date Time Temp Pulse Resp B/P (MAP) Pulse Ox O2 Delivery O2 Flow Rate FiO2 12/17/16 04:00 98.8 98 16 90/59 (69) 98 Room Air I&O- Last 24 Hours up to 6 AM 12/17/16 06:00 Intake Total 1780 ml Output Total 435 ml Balance 1345 ml Laboratory Data 24H LABS Laboratory Tests 2 12/17/16 04:49: White Blood Count 12.7H, Red Blood Count 3.52L, Hemoglobin 10.8L, Hematocrit 31.5L, Mean Corpuscular Volume 89.5, Mean Corpuscular Hemoglobin 30.7, Mean Corpuscular Hemoglobin Concent 34.3, Red Cell Distribution Width 11.8, Platelet Count 629H, Neutrophils (%) (Auto) 72.0H, Lymphocytes (%) (Auto) 18.5L, Monocytes (%) (Auto) 6.6H, Eosinophils (%) (Auto) 1.2, Basophils (%) (Auto) 0.2 , Neutrophils # (Auto) 9.1H, Lymphocytes # (Auto) 2.4, Monocytes # (Auto) 0.8, Eosinophils # (Auto) 0.2, Basophils # (Auto) 0.0, Large Unclassified Cells % 1.5 , Large Unclassified Cells # 0.2, Erythrocyte Sedimentation Rate 57H, Anion Gap 7L, Glomerular Filtration Rate > 60.0, Blood Urea Nitrogen 28H, Creatinine 0.78 , Sodium Level 130L, Potassium Level 3.7, Chloride Level 101, Carbon Dioxide Level 22, Calcium Level 7.9L, Aspartate Amino Transf (AST/SGOT) 23, Alanine Aminotransferase (ALT/SGPT) 31, Alkaline Phosphatase 113, Total Bilirubin 0.2, Total Protein 7.1, Albumin 3.3, Magnesium Level 2.0, C-Reactive Protein, Quantitative 1.42H, Albumin/Globulin Ratio 0.87L CBC/BMP Laboratory Tests 12/17/16 04:49 Red Blood Count 3.52 L, Mean Corpuscular Volume 89.5, Mean Corpuscular Hemoglobin 30.7, Mean Corpuscular Hemoglobin Concent 34.3, Red Cell Distribution Width 11.8, Neutrophils (%) (Auto) 72.0 H, Lymphocytes (%) (Auto) 18.5 L, Monocytes (%) (Auto) 6.6 H, Eosinophils (%) (Auto) 1.2, Basophils (%) ( Auto) 0.2, Neutrophils # (Auto) 9.1 H, Lymphocytes # (Auto) 2.4, Monocytes # ( Auto) 0.8, Eosinophils # (Auto) 0.2, Basophils # (Auto) 0.0, Calcium Level 7.9 L , Aspartate Amino Transf (AST/SGOT) 23, Alanine Aminotransferase (ALT/SGPT) 31, Alkaline Phosphatase 113, Total Bilirubin 0.2, Total Protein 7.1, Albumin 3.3 Microbiology Microbiology 12/15/16 Blood Culture - Preliminary, Resulted No growth after 24 hours . All specim... 12/15/16 Blood Culture - Preliminary, Resulted No growth after 24 hours . All specim... ADRIANA YANES PA-C December 17, 2016 08:37
[2016-12-17] MEDS: ACETAMINOPHEN TAB 650MG DOSE (2X325MG) PO PRN ×2 (09:27→17:34)
[2016-12-17 12:00] VITALS: BP 89/45
[2016-12-17] MEDS: LORazepam 0.5 MG TAB PO PRN (15:16)
[2016-12-17] MEDS ORDERED: HEPARIN 1,000 UNITS/ML 10ML VIAL (FOR RADIOLOGY& DIALYSIS ONLY) As Ordered ONE (15:37)
[2016-12-17] MEDS ORDERED: SODIUM BICARBONATE 8.4% INJ 50MEQ 50 ML VIAL As Ordered ONE (15:37)
[2016-12-17] MEDS ORDERED: LIDOCAINE 2% MDV 20 ML VIAL As Ordered ONE (15:37)
[2016-12-17] MEDS ORDERED: ISOVUE-300 61% 50ML VIAL (Q9967) As Ordered ONE (16:30)
--- NOTE | 2016-12-17 16:52 | REP ---
Procedure: PICC line insertion with Tyson-Melinda The procedure was performed under the direct supervision of Dr. Naidu. The risks and benefits of the procedure were explained and informed consent was obtained by the health care proxy. The right basilic vein was localized using ultrasound guidance. The skin was prepped and draped in a sterile fashion. 2% lidocaine was used as a local anesthetic. Using ultrasound guidance the basilic vein was cannulated and a 0.018 guidewire was inserted and advanced to the SVC using fluoroscopic guidance. The needle was removed and a 4.5 Turkmen dilator and peel-away sheath was inserted over the guide wire. A 4.5 Turkmen single lumen catheter was cut to length of 40 cm. The dilator was removed and the catheter was inserted over the guide wire however the catheter was unable to be advanced much beyond the end of the sheath. Multiple attempts were tried however the catheter was unable to be inserted. The right brachial vein was then localized using ultrasound guidance. The brachial vein was cannulated over the guide wire was unable to be advanced. The needle and wire were then removed. The left brachial vein was then localized using ultrasound guidance. The skin was prepped and draped in a sterile fashion. 2% lidocaine was used as a local anesthetic. An attempt is made to cannulate the brachial vein however this was unsuccessful. The patient tolerated the procedure well and there were no immediate complications. 0.2 minutes of fluoro time was utilized for this procedure. Reviewed by AMARI Rowland 12/17/2016 03:22 PSigned by Saulo Naidu MD 12/17/2016 04:42 P
--- NOTE | 2016-12-17 17:29 | REPKIM ---
CLINICAL HISTORY: Poor IV access and unsuccessful PICC. Patient needs central venous access for intermediate-term IV meds/fluids. PROCEDURE PERFORMED: Left IJ Non-tunneled Renetta Central Venous Catheter Placement INTERVENTIONALIST: Latoya Raza MD MEDICATIONS: Local Lidocaine 2% EBL: 2 mL DEVICE USED: 7F Double Lumen Renetta Catheter Lot#[id number] FLUORO TIME: 0.8 minutes CONSENT: The risks, benefits and alternatives to the procedure were explained to the patients parents and informed written consent was obtained. PROCEDURE/FINDINGS: The patient was brought to the interventional radiology suite and placed in the supine with the left side up. Time out procedure was performed. The left neck was prepped and draped in a usual sterile fashion. Real time ultrasound was used and permanent image stored. Using ultrasound guidance the left IJ vein was punctured, after infiltration of the skin and deep tissues with local anesthetic. The guidewire was advanced and positioned in the inferior vena cava. Using this access, a double lumen 7-Trinidadian Renetta catheter was inserted. Post procedure chest radiograph showed the tip of the catheter at the cavoatrial junction. The catheter was secured at the skin exit site with 2-0 suture. Each port of the catheter was flushed with saline then locked with heparin (concentration 10 units/cc). A sterile dressing was then applied. The patient tolerated the procedure well with no immediate complications. This procedure was performed using ultrasound and fluoroscopy. Dr. Raza was present. IMPRESSION: 1. Ultrasound of the neck demonstrates patent left IJ vein and compressible. 2. Successful left IJ Renetta catheter placement as discussed above. The catheter is ready for immediate use. cc: Cedrick Myers M.D. [facility]
[2016-12-17] MEDS ORDERED: SODIUM CHLORIDE 0.9% INJ 10 ML SYR IV PRN (17:30)
[2016-12-17 20:00] VITALS: BP 102/52
[2016-12-18] VITALS (7 sets, daily range): BP systolic 89–140; BP diastolic 51–98
[2016-12-18] MEDS: MEROPENEM INJ 1 GM in D5W MINI-BAG PLUS 100 ML IV SCH ×3 (03:09→18:18)
[2016-12-18] MEDS: ONDANSETRON 4MG/2ML VIAL (J2405) IV PRN (04:39)
[2016-12-18] MEDS: HEPARIN SOD (PORCINE) 5000 UNITS/ML VIAL SQ SCH ×3 (05:26→21:29)
[2016-12-18 05:58] LABS: BASO % 0.2 % (0.0-1.0); EOS # 0.2 K/mm3 (0.0-0.50); EOS % 2.3 % (0.0-3.0); LARGE UNSTAINED CELL # 0.2 K/mm3 (0.0-0.4); LARGE UNSTAINED CELL % 1.7 % (0.0-4.0); LYMPH # 2.4 K/mm3 (1.5-4.5); LYMPH % 24.5 % (24.0-44.0); MEAN CORPUSCULAR HEMOGLOBIN 31.7 pg (27.0-33.0); MEAN CORPUSCULAR HGB CONC 35.1 g/dl (32.0-36.5); MEAN CORPUSCULAR VOLUME 90.2 fl (80.0-96.0); MONO # 0.8 K/mm3 (0.0-0.8); MONO % 7.7 % (0.0-5.0); NEUTROPHILS # 6.2 K/mm3 (1.8-7.7); NEUTROPHILS % 63.6 % (36.0-66.0); PLATELET COUNT, AUTOMATED 551 k/mm3 (150-450); RED CELL DISTRIBUTION WIDTH 11.9 % (11.5-14.5); WHITE BLOOD COUNT 9.8 K/mm3 (4.0-10.0)
[2016-12-18 06:02] LABS: ALBUMIN 3.1 GM/DL (3.2-5.2); ALBUMIN/GLOBULIN RATIO 1.07 (1.00-1.93); ALKALINE PHOSPHATASE 92 U/L (45-117); ALT/SGPT 26 U/L (12-78); ANION GAP 10 MEQ/L (8-16); AST/SGOT 18 U/L (15-37); BILIRUBIN,TOTAL 0.2 MG/DL (0.2-1.0); BLOOD UREA NITROGEN 16 MG/DL (7-18); CALCIUM LEVEL 7.6 MG/DL (8.5-10.1); CARBON DIOXIDE LEVEL 23 MEQ/L (21-32); CHLORIDE LEVEL 102 MEQ/L (98-107); GLOMERULAR FILTRATION RATE > 60.0 (>60); GLUCOSE, FASTING 96 MG/DL (70-105); MAGNESIUM LEVEL 1.4 MG/DL (1.8-2.4); POTASSIUM SERUM 3.7 MEQ/L (3.5-5.1); SODIUM LEVEL 135 MEQ/L (136-145)
[2016-12-18] MEDS: CARBAMAZEPINE 200 MG/10 ML PO SCH ×3 (07:55→21:28)
[2016-12-18] MEDS: CALCIUM CARB SUSP 1250MG/5ML UNIT DOSE CUP PO SCH ×3 (07:55→21:27)
[2016-12-18] MEDS: PHENYTOIN 50 MG CHEW TABLET PO SCH ×3 (07:56→21:28)
[2016-12-18] MEDS: BUDESONIDE EC 3 MG CAP (ENTOCORT EC) PO SCH (07:56)
[2016-12-18] MEDS: VITAMIN D 1,000 INTERNATIONAL UNITS TABLET PO SCH (07:56)
[2016-12-18] MEDS: CETIRIZINE (ZyrTEC) 10 MG TAB PO SCH (07:57)
[2016-12-18] MEDS: SIMETHICONE 80 MG CHEW TAB PO SCH ×3 (07:57→21:28)
[2016-12-18] MEDS: NS 1,000 ML IV SCH ×2 (08:20→21:29)
--- NOTE | 2016-12-18 09:07 | IPNPDOC ---
Subjective Date Seen The patient was seen on 12/18/16. Subjective Chief Complaint/HPI The patient is a 36-year-old male admitted with a reason for visit of Diarrhea; Hyponatremia. Events since last encounter Pt's parents at bedside this morning. His mom is pleased with his progress over the last few days. He does cont to have loose, watery stools, but he is eating better and drinking better. He is more active and showing interest/ making attempts to get out of bed. He completed all of his breakfast this morning. General: Reports: ROS Unobtainable Objective Physical Examination General Exam: Positive: Alert, No Acute Distress ENT Exam: Positive: Mucous membr. moist/pink Neck Exam: Positive: Supple Chest Exam: Positive: Clear to auscultation, Normal air movement Heart Exam: Positive: Tachycardic, Regular Rhythm Abdomen Exam: Positive: BS Hyperactive, Soft, Other (loose brown stool in ostomy bag), Negative: Tenderness Extremity Exam: Negative: Edema Skin Exam: Negative: Nl turgor and temperature Assessment /Plan Problems (1) Hyponatremia Status: Acute Response to Treatment: Improving Problem Specific Plan: Monitor Clinically, Repeat Labs Problem Text: 12/18 - Na 135 today, up from 130, will cont with IVF 40 cc/hr for today, anticipate d/c these tomorrow. Will transfer to the floor. 12/17 - Sodium improved. Na+ = 130 today on NS at 40 cc/hour (2) Leukocytosis Status: Acute Response to Treatment: Worse Discussed With: Family with Pt Consent Problem Specific Plan: Monitor Clinically, Repeat Labs Problem Text: favor viral enteritis > Crohn's flare c microperforation-now resolving 12/18 Meropenam D4, Afebrile, leukocytosis has resolved. CT report with suggestion of free air, doesn't support clinical picture, Dr Olivas agrees with this per report 12/17 12/17 - meropenem D3 WBC trending down. Afebrile. B/C negative. Dr. Olivas evaluated for ? free air - per verbal discussion, does not feel he has peritonitis Still with loose stool in Ostomy. GI panel negative 12/11/16 (3) Diarrhea Status: Acute Discussed With: Family with Pt Consent Problem Specific Plan: Consult Specialist, Monitor Clinically Problem Text: 05/06/16-09/17/16 Humira 20 q2W s improvement of weight loss/diarrhea/inflammatory markers 04/2016 SBFT s obvious disease 03/2016 [facility] c/w Crohn's c high risk of aggressive disease follows trang Zavala as outpatient-t/c capsule as outpatient (4) Normocytic anemia Status: Acute Problem Specific Plan: Monitor Clinically, Repeat Labs Problem Text: 12/18 - Hgb continues to trend down 10.8 12/17, 12/18 9.5, on IVF at 40 cc/hr, likely source as well as poor oral intake. Baseline Hgb 13. 12/17/16 - Hgb trending down further = 10.8 today - on slow rate IVF. No blood in Ostomy. continue to monitor trend Chronic anemia - baseline around 13. Occult blood negative 10/2016 (5) Seizure disorder Status: Chronic Response to Treatment: Stable Problem Specific Plan: Monitor Clinically Problem Text: Stable on HD phenytoin/carba 12/15/16 pheny/carba 02/22-stable (6) Mental retardation Status: Chronic Problem Specific Plan: Monitor Clinically Plan/VTE VTE Prophylaxis Ordered?: Yes (SQ heparin) Plan/Urinary Catheter Reason for insertion/continuin: Critical Pt monitoring VS, I&O, 24H, [facility] Vital Signs/I&O Vital Signs Date Time Temp Pulse Resp B/P (MAP) Pulse Ox O2 Delivery O2 Flow Rate FiO2 12/18/16 08:00 98.0 106 18 140/98 (112) 98 Room Air I&O- Last 24 Hours up to 6 AM 12/18/16 06:00 Intake Total 1510 ml Output Total 600 ml Balance 910 ml Laboratory Data 24H LABS Laboratory Tests 2 12/18/16 05:24: White Blood Count 9.8, Red Blood Count 3.00L, Hemoglobin 9.5L, Hematocrit 27.1L , Mean Corpuscular Volume 90.2, Mean Corpuscular Hemoglobin 31.7, Mean Corpuscular Hemoglobin Concent 35.1, Red Cell Distribution Width 11.9, Platelet Count 551H, Neutrophils (%) (Auto) 63.6, Lymphocytes (%) (Auto) 24.5, Monocytes (%) (Auto) 7.7H, Eosinophils (%) (Auto) 2.3, Basophils (%) (Auto) 0.2, Neutrophils # (Auto) 6.2, Lymphocytes # (Auto) 2.4, Monocytes # (Auto) 0.8, Eosinophils # (Auto) 0.2, Basophils # (Auto) 0.0, Large Unclassified Cells % 1.7 , Large Unclassified Cells # 0.2, Anion Gap 10, Glomerular Filtration Rate > 60.0, Blood Urea Nitrogen 16, Creatinine 0.60L, Sodium Level 135L, Potassium Level 3.7, Chloride Level 102, Carbon Dioxide Level 23, Calcium Level 7.6L, Aspartate Amino Transf (AST/SGOT) 18, Alanine Aminotransferase (ALT/SGPT) 26, Alkaline Phosphatase 92, Total Bilirubin 0.2, Total Protein 6.0L, Albumin 3.1L, Magnesium Level 1.4L, Albumin/Globulin Ratio 1.07 CBC/BMP Laboratory Tests 12/18/16 05:24 Red Blood Count 3.00 L, Mean Corpuscular Volume 90.2, Mean Corpuscular Hemoglobin 31.7, Mean Corpuscular Hemoglobin Concent 35.1, Red Cell Distribution Width 11.9, Neutrophils (%) (Auto) 63.6, Lymphocytes (%) (Auto) 24.5, Monocytes (%) (Auto) 7.7 H, Eosinophils (%) (Auto) 2.3, Basophils (%) ( Auto) 0.2, Neutrophils # (Auto) 6.2, Lymphocytes # (Auto) 2.4, Monocytes # (Auto ) 0.8, Eosinophils # (Auto) 0.2, Basophils # (Auto) 0.0, Calcium Level 7.6 L, Aspartate Amino Transf (AST/SGOT) 18, Alanine Aminotransferase (ALT/SGPT) 26, Alkaline Phosphatase 92, Total Bilirubin 0.2, Total Protein 6.0 L, Albumin 3.1 L Microbiology Microbiology 12/15/16 Blood Culture - Preliminary, Resulted No Growth after 48 hours. All Specime... 12/15/16 Blood Culture - Preliminary, Resulted No Growth after 48 hours. All Specime... RADHA LIRIANO PA-C December 18, 2016 09:07 Cedrick Myers M.D. December 18, 2016 14:23
[2016-12-18] MEDS: ACETAMINOPHEN TAB 650MG DOSE (2X325MG) PO PRN (10:57)
[2016-12-18] MEDS: MAG SULF 1GM/100ML (MAG RUN) 1 GM in APPROPRIATE DILUENT 1 EA IV SCH ×3 (11:18→14:13)
[2016-12-18] MEDS: LOTRISONE CREAM 15 GM (BETAMETH/CLOTRIMAZOLE) TOP SCH ×2 (16:09→21:29)
[2016-12-18] MEDS: LORazepam 0.5 MG TAB PO PRN (21:28)
[2016-12-19 02:00] VITALS: BP 102/60
[2016-12-19] MEDS: MEROPENEM INJ 1 GM in D5W MINI-BAG PLUS 100 ML IV SCH (02:32)
[2016-12-19] MEDS: HEPARIN SOD (PORCINE) 5000 UNITS/ML VIAL SQ SCH (05:34)
[2016-12-19 05:48] LABS: BASO % 0.4 % (0.0-1.0); EOS # 0.3 K/mm3 (0.0-0.50); EOS % 3.4 % (0.0-3.0); LARGE UNSTAINED CELL # 0.1 K/mm3 (0.0-0.4); LARGE UNSTAINED CELL % 1.4 % (0.0-4.0); LYMPH # 2.4 K/mm3 (1.5-4.5); LYMPH % 26.5 % (24.0-44.0); MEAN CORPUSCULAR HEMOGLOBIN 30.9 pg (27.0-33.0); MEAN CORPUSCULAR HGB CONC 34.5 g/dl (32.0-36.5); MEAN CORPUSCULAR VOLUME 89.7 fl (80.0-96.0); MONO # 0.6 K/mm3 (0.0-0.8); MONO % 6.8 % (0.0-5.0); NEUTROPHILS # 5.2 K/mm3 (1.8-7.7); NEUTROPHILS % 61.5 % (36.0-66.0); PLATELET COUNT, AUTOMATED 484 k/mm3 (150-450); WHITE BLOOD COUNT 8.4 K/mm3 (4.0-10.0)
[2016-12-19 06:00] VITALS: BP 100/60
[2016-12-19 06:11] LABS: ALBUMIN 2.8 GM/DL (3.2-5.2); ALKALINE PHOSPHATASE 81 U/L (45-117); ALT/SGPT 24 U/L (12-78); ANION GAP 8 MEQ/L (8-16); AST/SGOT 19 U/L (15-37); BILIRUBIN,TOTAL 0.1 MG/DL (0.2-1.0); BLOOD UREA NITROGEN 8 MG/DL (7-18); CARBON DIOXIDE LEVEL 25 MEQ/L (21-32); CHLORIDE LEVEL 104 MEQ/L (98-107); CREATININE FOR GFR 0.49 MG/DL (0.70-1.30); FERRITIN 251 NG/ML (26-388); GLOMERULAR FILTRATION RATE > 60.0 (>60); GLUCOSE, FASTING 83 MG/DL (70-105); MAGNESIUM LEVEL 1.9 MG/DL (1.8-2.4); PERCENT SATURATION 84.6 % (19.7-37.4); POTASSIUM SERUM 3.7 MEQ/L (3.5-5.1); SODIUM LEVEL 137 MEQ/L (136-145); TOTAL IRON BINDING CAPACITY 228 UG/DL (250-450); TOTAL PROTEIN 5.9 GM/DL (6.4-8.2)
[2016-12-19] MEDS: VITAMIN D 1,000 INTERNATIONAL UNITS TABLET PO SCH (08:09)
[2016-12-19] MEDS: CETIRIZINE (ZyrTEC) 10 MG TAB PO SCH (08:09)
[2016-12-19] MEDS: SIMETHICONE 80 MG CHEW TAB PO SCH (08:09)
[2016-12-19] MEDS: CALCIUM CARB SUSP 1250MG/5ML UNIT DOSE CUP PO SCH (08:10)
[2016-12-19] MEDS: PHENYTOIN 50 MG CHEW TABLET PO SCH (08:10)
[2016-12-19] MEDS: CARBAMAZEPINE 200 MG/10 ML PO SCH (08:10)
[2016-12-19] MEDS: LOTRISONE CREAM 15 GM (BETAMETH/CLOTRIMAZOLE) TOP SCH (08:10)
[2016-12-19] MEDS ORDERED: LEVA750T PO (08:34)
--- NOTE | 2016-12-19 09:22 | DSES ---
DATE OF ADMISSION: 12/15/2016 DATE OF DISCHARGE: 12/19/2016 HISTORY: This is a 36-year-old male patient who was transferred to [facility] emergency room after increased output from his ostomy sight with low sodium levels. He is a [facility] ([facility]) resident with a history of mental retardation secondary to anoxic brain activity and seizure disorder. He has a history of Crohn's status post colostomy. He was admitted to the hospital for hypovolemic hyponatremia, acute on chronic kidney failure, increased output via his colostomy. During his hospitalization he did remain medically stable. Some of the labs pertinent to this hospitalization were not obtained during the hospitalization including a GI panel which was obtained on December 11, which was negative. Blood cultures were obtained and they were also negative. He did have a white blood cell count that peaked at 21,000 and then has since normalized. As a result of his climbing white blood cell count, he underwent CT scan of the abdomen and pelvis, which was suggestive of tiny dots of free air along the anterior abdominal wall, possibly related to a wound infection, per Dr. Rhodes. A discussion was held between Dr. Myers and Dr. Olivas. Dr. Olivas did not feel as though this was an acute process and recommended conservative treatment and therefore the patient was continued on IV meropenem as well as IV fluids. His sodium level steadily improved. He was admitted with a sodium of 119. It is normal today at 137. His oral intake has improved and is, in fact, close to baseline according to his mother and stepfather who have been attentive and at beside throughout most of the hospitalization. He has developed some anemia, although stool occult blood has been negative. His hemoglobin on the day of discharge is 8.9. I feel a portion of this is related to dilution as he has gotten IV fluids during his hospitalization as well as his last. His iron was checked this morning, it was 193. His total iron binding capacity is 228, percent sat is 84.6, B12 is pending. DISCHARGE DIAGNOSES: 1. Hyponatremia. 2. Leukocytosis, either secondary to viral enteritis or Crohn's flair with a microperforation, now resolving. 3. Normocytic anemia. 4. Increased ostomy output. 5. Diarrhea. 6. Seizure disorder. 7. Mental retardation. DISCHARGE MEDICATIONS: Include: - Levaquin 750 mg daily times 10 days - calcium carbonate 1250 mg/5 mL, 5 mL by mouth three times a day - Tegretol 100 mg/5 mL, 15 mL by mouth three times a day - CeraVe topically twice daily - cetirizine 10 mg by mouth daily - vitamin D3 5000 units by mouth daily - Benadryl 25 mg every 4 hours as needed for allergies - hydroxyzine 25 mg every 12 hours as needed for itching - multivitamin 30 mL by mouth daily - phenytoin 100 mg by mouth at bedtime - phenytoin 150 mg by mouth every morning, 100 mg by mouth daily - simethicone 760 mg by mouth three times a day - triglycerides 15 mL by mouth three times a day - terbinafine one dose topically twice daily to his feet DISCHARGE PLAN: Followup with Isa Martinez as scheduled one week from yesterday, so December 25. Activity should be as tolerated. Diet is pureed. No dairy products or red food coloring.
[2016-12-19 12:03] LABS: VITAMIN B12 LEVEL 391 PG/ML (247-911)
[2016-12-19 14:16] LABS: CHLORIDE FECAL 60 mmol/L (.); OSMOLARITY STOOL 302 mOsmol/kg (Not Estab.); POTASSIUM FECAL 27 mmol/L (.); SODIUM FECAL 109 mmol/L (.)
== END 2016-12-19 10:36 | disposition home or self-care (01) | DRG 641 ==
LOC: M ED 14:44 → M ED INP 15:36 → M ICU 20:06 → M MSPAV 12-18 10:38
PROVIDERS: ADMIT Internal Medicine; ATTEND Family Medicine
PROC: 02HV33Z Insertion of Infusion Device into Superior Vena Cava, Percutaneous Approach (ICD-10-PCS; principal; 2016-12-17)
DX: E87.1 Hypo-osmolality and hyponatremia (principal); N17.9 Acute kidney failure, unspecified; K50.90 Crohn's disease, unspecified, without complications; A08.4 Viral intestinal infection, unspecified; R19.7 Diarrhea, unspecified; F79 Unspecified intellectual disabilities; G40.909 Epilepsy, unspecified, not intractable, without status epilepticus; E86.1 Hypovolemia; D64.9 Anemia, unspecified; M81.0 Age-related osteoporosis without current pathological fracture; K21.9 Gastro-esophageal reflux disease without esophagitis; Z87.820 Personal history of traumatic brain injury; Z93.3 Colostomy status; Z79.899 Other long term (current) drug therapy

== ENCOUNTER → 2016-12-15 | Outpatient (CLI) | payer MEDICARE, MEDICAID ==
[2016-12-15 12:54] LABS: ALBUMIN 4.5 GM/DL (3.2-5.2); ALKALINE PHOSPHATASE 145 U/L (45-117); ALT/SGPT 34 U/L (12-78); ANION GAP 13 MEQ/L (8-16); AST/SGOT 25 U/L (15-37); BILIRUBIN,TOTAL 0.2 MG/DL (0.2-1.0); BLOOD UREA NITROGEN 76 MG/DL (7-18); CALCIUM LEVEL 9.2 MG/DL (8.5-10.1); CARBON DIOXIDE LEVEL 22 MEQ/L (21-32); CHLORIDE LEVEL 87 MEQ/L (98-107); CREATININE FOR GFR 1.35 MG/DL (0.70-1.30); GLOMERULAR FILTRATION RATE > 60.0 (>60); GLUCOSE, FASTING 112 MG/DL (70-105); SODIUM LEVEL 122 MEQ/L (136-145); TOTAL PROTEIN 8.6 GM/DL (6.4-8.2)
== END ==
LOC: M LAB 11:33
PROVIDERS: ATTEND Physician Assistant Medical
DX: R19.7 Diarrhea, unspecified (principal)

== ENCOUNTER → 2016-12-15 | Outpatient (REF) | payer MEDICARE, MEDICAID ==
[~2016-12-15] MED LIST changes: +LEVA750T PO
== END ==
LOC: M SFHCPLAZ 13:17
PROVIDERS: ATTEND Physician Assistant Medical
DX: R19.7 Diarrhea, unspecified (principal); Z53.8 Procedure and treatment not carried out for other reasons

== ENCOUNTER 2016-12-24 09:40 | Inpatient (IN) | payer MEDICARE, MEDICAID ==
[~2016-12-24] VITALS: Ht 172.7 cm; Wt 49.3 kg
[~2016-12-24 09:40] MED LIST changes: -ACYC400T PO; -OCTR100I SQ
[2016-12-24] MEDS ORDERED: NS 1,000 ML IV ONE ×2 (10:45→13:00)
--- NOTE | 2016-12-24 11:20 | REP ---
Portable chest x-ray: Sitting AP view. History: Leukocytosis. Comparison study December 15, 2016. Findings: The patient is rotated slightly to the right. The lungs are well inflated and clear. Heart size is normal. Pulmonary vasculature is not increased. No significant bony abnormality is seen. Impression: No acute disease. Signed by Sean Scott MD 12/24/2016 04:32 P
[2016-12-24] MEDS ORDERED: ISOVUE-300 61% 50ML VIAL (Q9967) As Ordered ONE (12:01)
[2016-12-24 13:07] LABS: CARBAMAZEPINE (TEGRETOL) LEVEL 6.5 UG/ML (4.0-10.0)
[2016-12-24] MEDS ORDERED: ISOVUE-370 76% 100ML VIAL (Q9967) As Ordered ONE (13:17)
--- NOTE | 2016-12-24 14:22 | REP ---
CT CHEST WITH IV CONTRAST: TECHNIQUE: Axial contrast enhanced images from the thoracic inlet to the upper abdomen using 100 mL Isovue 370 intravenous contrast material with multiplanar reformations. Interstitial fibrotic scarring is seen in the right middle lobe without evidence of acute infiltrate or consolidation. Heart is normal in size. There is a small pericardial effusion. There is no pleural effusion. No adenopathy is seen. IMPRESSION: Small pericardial effusion. Fibrotic scarring right middle lobe. Signed by Saulo Naidu MD 12/24/2016 04:58 P
--- NOTE | 2016-12-24 14:32 | REP ---
CT ABDOMEN/PELVIS WITH CONTRAST: TECHNIQUE: Axial contrast enhanced images from the lung bases to the pubic symphysis using 100 mL Isovue 370 intravenous contrast material with multiplanar reformations. Liver, spleen, adrenals, pancreas, and kidneys are unremarkable. There is no abdominal aortic aneurysm. There is no adenopathy. There is no free air or free fluid. Ostomy is again seen in the anterior abdominal wall just to the left of midline. Multiple metallic clips are seen in the right anterior abdominal wall. No bowel wall thickening is seen. No abscess is seen. IMPRESSION: Ostomy again seen. No free air, free fluid, or abscess. Signed by Saulo Naidu MD 12/24/2016 04:58 P
[2016-12-24] MEDS ORDERED: ACYC400T PO (14:59)
[2016-12-24] MEDS ORDERED: CARB10SS PO ×2 (14:59)
[2016-12-24] MEDS ORDERED: LEVA750T PO (15:00)
[2016-12-24] MEDS ORDERED: ACYCLOVIR 200 MG CAPSULE PO PRN (15:15)
[2016-12-24] MEDS ORDERED: diphenhydrAMINE 25 MG CAP PO PRN (15:15)
[2016-12-24] MEDS: NS 1,000 ML IV SCH (17:25)
[2016-12-24 17:30] VITALS: BP 134/70
[2016-12-24] MEDS: HEPARIN SOD (PORCINE) 5000 UNITS/ML VIAL SC SCH ×2 (17:47→22:02)
[2016-12-24] MEDS ORDERED: MEROPENEM INJ 2 GM in NS 100 ML IV SCH (18:00)
[2016-12-24] MEDS: MEROPENEM INJ 1 GM in D5W MINI-BAG PLUS 100 ML IV SCH ×2 (18:11→23:57)
[2016-12-24] MEDS: PHENYTOIN 50 MG CHEW TABLET PO SCH (18:12)
[2016-12-24] MEDS: ACETAMINOPHEN TAB 650MG DOSE (2X325MG) PO PRN (18:12)
[2016-12-24] MEDS: CALCIUM CARB SUSP 1250MG/5ML UNIT DOSE CUP PO SCH ×2 (18:13→22:02)
[2016-12-24] MEDS: CARBAMAZEPINE 200 MG/10 ML PO SCH ×2 (18:13→22:02)
[2016-12-24] MEDS: SIMETHICONE 80 MG CHEW TAB PO SCH ×2 (18:13→22:01)
--- NOTE | 2016-12-24 18:33 | REPKIM ---
CLINICAL HISTORY: Patient presents to ER with leukocytosis and suspected infection. Poor peripheral access. Patient needs venous access for IV meds/ fluids. PROCEDURE PERFORMED: Peripherally Inserted Central Catheter (PICC) Placement PHYSICIAN: Dr. Andrea Raza CONSENT: The risks, benefits and alternatives to the procedure were explained to the patients mother and informed written consent was obtained. MEDICATIONS: Local Lidocaine EBL: 25 mL (15mL used for blood culture and labs) FLUORO TIME: 1.7 minutes DEVICE USED: Arrow 4-Tristanian, Single-Lumen PICC trimmed at 50 cm length, Lot# [id number] PROCEDURE/FINDINGS: The patient was brought to the interventional radiology suite and was positioned supine on the table. Time out procedure was performed. Real time ultrasound was used and permanent image stored. Using ultrasound guidance the left brachial vein was punctured, after infiltration of the skin and deep tissues with local anesthetic. A 5.5F DL PICC was inserted over a guidewire however could not advance centrally. Therefore decision was made to place a 4F PICC. Using this access, a 50-cm length 4-Tristanian single lumen PICC was then inserted with its tip positioned at the cavoatrial junction. The catheter was secured at the skin exit site with stat-lock. There is free aspiration of blood from the port of the catheter. The port of the catheter was locked with heparin (concentration 100 units/cc). A sterile dressing was then applied. The patient tolerated the procedure well with no immediate complications. This procedure was performed using ultrasound and fluoroscopy. Dr. Raza was present. IMPRESSION: Successful PICC placement as discussed above. The catheter is ready for use. cc: MD HINA Desouza
--- NOTE | 2016-12-24 21:52 | HPE ---
DATE OF ADMISSION: 12/24/2016 PRIMARY CARE PROVIDER: Dr. Cedrick Myers HISTORY OF PRESENT ILLNESS: This patient is a 36-year-old male with a past medical history significant for mental retardation from anoxic brain injury, seizure disorder, chronic anemia, Crohn's disease status post colostomy, osteoporosis, gastroesophageal reflux disease, was instructed to come to [facility] by primary care provider. Initially, patient was hospitalized from 12/15/2016 to 12/19/2016, for high output ostomy and hyponatremia. Patient was given antibiotics and patient's symptoms started improving. After discharge, patient continued to have loose stools through the ostomy and patient also had a temperature of 99.9 in the last 24 hours. When patient was getting laboratory tests for tomorrow's post-hospitalization followup, patient was found to have an elevation of his white blood cells (WBCs) and the primary care provider instructed the patient to come to [facility] for further treatment. ALLERGIES: METRONIDAZOLE, CEPHALOSPORIN, PENICILLIN, CEFACLOR, GENTAMICIN, QUINOLONES, AZITHROMYCIN. PAST MEDICAL HISTORY: 1. Mental retardation secondary to anoxic brain injury. 2. Seizure disorder. 3. Chronic anemia. 4. Crohn's disease status post colostomy. 5. History of herpes simplex virus (HSV). 6. History of nephrolithiasis. 7. Osteoporosis. 8. Gastroesophageal reflux disease. PAST SURGICAL HISTORY: Multiple abdominal surgeries including subtotal colectomy and ileostomy, abdominal exploration for small-bowel obstruction (SBO) with small-bowel resection and repair of parastomal hernia, Ileostomy relocation, repair of ileostomy prolapse. SOCIAL HISTORY: Denies smoking. Denies alcohol use. Denies recreational drug use. The patient is a [facility] ([facility]) resident. Patient is a [employer]. REVIEW OF SYSTEMS: Due to patient's mental status, limited information obtained. OBJECTIVE: VITAL SIGNS: Temperature 98.5, pulse 93, respirations 18, blood pressure 115/87, pulse oximetry 96% in room air. GENERAL: Intermittent agitation. No sign of acute distress. Patient is awake and alert but patient is not oriented, nonverbal, not able to answer to questions, not able to follow commands. HEENT: Some mild bruises near the lateral corner of the left eye. Otherwise normocephalic, atraumatic. CARDIOVASCULAR: Positive systolic murmur. Positive S1, S2, regular rate. LUNGS: Poor respiratory air effort due to unable to follow commands, but I cannot appreciate any wheezes or rhonchi. ABDOMEN: Ostomy located at the right lower abdomen, loose stool, no evidence of blood. Abdomen is soft. Bowel sounds present. No rebound, no guarding. EXTREMITIES: No edema. No cyanosis. LABORATORY DATA: WBC 19.4, hemoglobin 10.9, hematocrit 31.8, platelet count 590, ESR 52. Sodium 133, potassium 5.2, chloride 103, carbon dioxide 22, BUN 26, creatinine 0.87, GFR greater than 60, fasting glucose 92, lactic acid 2.2, calcium 8.9, total bilirubin 0.2, AST 26, ALT 51, alkaline phosphatase 120, C-reactive protein 1, total protein 8.1, albumin 4.1, lipase 245 ASSESSMENT AND PLAN: 1. Markedly elevated leukocytosis. Patient will be admitted to the medical/surgical floor under inpatient status. Patient had similar episode in the past and improved with antibiotics. Will continue to follow with blood culture and gastrointestinal (GI) panel. Empirically patient is started on meropenem which helped with the patient's leukocytosis last time. There is also suspicion that patient may have acute Crohn's flare. Patient will have a trial of budesonide. 2. Lactic acidosis. Patient has mild elevation of lactic acid, around 2.2. Patient is on fluid hydration. 3. Hyponatremia and hyperkalemia. Continue to monitor. Patient is on fluid resuscitation. 4. Mental retardation secondary to anoxic brain injury, at baseline. 5. Seizure disorder. Will continue home medication. 6. Gastroesophageal reflux disease. Continue home medication. 7. History of herpes simplex virus (HSV). Patient has acyclovir as needed. 8. Deep venous thrombosis (DVT) prophylaxis. Patient is on heparin.
[2016-12-24 22:00] VITALS: BP 115/60
[2016-12-24] MEDS: CETIRIZINE (ZyrTEC) 10 MG TAB PO SCH (22:01)
[2016-12-25] MEDS: NS 1,000 ML IV SCH ×2 (04:00→21:20)
[2016-12-25] MEDS: HEPARIN SOD (PORCINE) 5000 UNITS/ML VIAL SC SCH ×3 (05:26→21:20)
[2016-12-25 05:42] LABS: MEAN CORPUSCULAR HEMOGLOBIN 31.5 pg (27.0-33.0); MEAN CORPUSCULAR HGB CONC 33.3 g/dl (32.0-36.5); MEAN CORPUSCULAR VOLUME 94.6 fl (80.0-96.0); WHITE BLOOD COUNT 13.3 K/mm3 (4.0-10.0)
[2016-12-25 05:56] LABS: PLATELET COUNT, AUTOMATED 466 k/mm3 (150-450)
[2016-12-25 05:57] LABS: ANION GAP 5 MEQ/L (8-16); BLOOD UREA NITROGEN 19 MG/DL (7-18); CALCIUM LEVEL 8.2 MG/DL (8.5-10.1); CARBON DIOXIDE LEVEL 23 MEQ/L (21-32); CHLORIDE LEVEL 108 MEQ/L (98-107); CREATININE FOR GFR 0.62 MG/DL (0.70-1.30); GLOMERULAR FILTRATION RATE > 60.0 (>60); GLUCOSE, FASTING 92 MG/DL (70-105); POTASSIUM SERUM 4.6 MEQ/L (3.5-5.1); SODIUM LEVEL 136 MEQ/L (136-145)
[2016-12-25 06:00] VITALS: BP 106/59
[2016-12-25] MEDS: MEROPENEM INJ 1 GM in D5W MINI-BAG PLUS 100 ML IV SCH ×2 (09:17→16:56)
[2016-12-25] MEDS: VITAMIN D 1,000 INTERNATIONAL UNITS TABLET PO SCH (09:18)
[2016-12-25] MEDS: SIMETHICONE 80 MG CHEW TAB PO SCH ×3 (09:18→21:20)
[2016-12-25] MEDS: CALCIUM CARB SUSP 1250MG/5ML UNIT DOSE CUP PO SCH ×3 (09:19→21:20)
[2016-12-25] MEDS: PHENYTOIN 50 MG CHEW TABLET PO SCH ×3 (09:19→16:57)
[2016-12-25] MEDS: CARBAMAZEPINE 200 MG/10 ML PO SCH ×3 (09:19→21:20)
[2016-12-25] MEDS: BUDESONIDE EC 3 MG CAP (ENTOCORT EC) PO SCH (09:25)
--- NOTE | 2016-12-25 11:22 | IPNPDOC ---
Subjective Date Seen The patient was seen on 12/25/16. Subjective Chief Complaint/HPI The patient is a 36-year-old male admitted with a reason for visit of Leukocytosis. Events since last encounter Pt in wheelchair. Pt non verbal. Family present. They state pt does not appear to be in pain. Still having diarrhea. General: Reports: ROS Unobtainable Objective Physical Examination General Exam: Positive: Alert, No Acute Distress Neck Exam: Positive: Supple, Negative: JVD Chest Exam: Positive: Clear to auscultation Heart Exam: Positive: Rate Normal, Regular Rhythm Abdomen Exam: Positive: Normal bowel sounds, Soft, Other (ostomy), Negative: Tenderness Extremity Exam: Negative: Edema Assessment /Plan Problems (1) Leukocytosis Status: Acute Problem Specific Plan: Monitor Clinically, Repeat Labs Problem Text: 12/25 - WBC down to 13.3 today. On IV Meropenem. ?Crohn's flare - Consult Dr Zavala. I notified him. Family states that Humira was stopped as it was not helping. LA was 2.2 yesterday but 3.4 yesterday afternoon. Will recheck LA. On Entocort. (2) Lactic acidosis Status: Acute Problem Specific Plan: Monitor Clinically, Repeat Labs Problem Text: 12/25 - LA was 2.2 yesterday but 3.4 yesterday afternoon. Will recheck LA. WBC down to 13.3 today. On IV Meropenem. (3) Diarrhea Status: Acute Problem Specific Plan: Monitor Clinically, Repeat Labs Problem Text: 12/25 - WBC down to 13.3 today. On IV Meropenem. ?Crohn's flare - Consult Dr Zavala. I notified him. Family states that Humira was stopped as it was not helping. LA was 2.2 yesterday but 3.4 yesterday afternoon. Will recheck LA. On Entocort. (4) Hyponatremia Status: Acute Response to Treatment: Improving Problem Specific Plan: Repeat Labs Problem Text: 12/25 - Na 136 today. IVF. (5) Seizure disorder Status: Chronic Problem Specific Plan: Monitor Clinically Problem Text: On Tegretol and Dilantin. (6) Mental retardation Status: Chronic Problem Specific Plan: Monitor Clinically Problem Text: Baseline. Plan/VTE VTE Prophylaxis Ordered?: Yes VS, I&O, 24H, Fishbone Vital Signs/I&O Vital Signs Date Time Temp Pulse Resp B/P (MAP) Pulse Ox O2 Delivery O2 Flow Rate FiO2 12/25/16 06:00 98.7 101 20 106/59 (75) 98 12/24/16 17:30 Room Air I&O- Last 24 Hours up to 6 AM 12/25/16 06:00 Intake Total 820 ml Output Total 0 ml Balance 820 ml Laboratory Data 24H LABS Laboratory Tests 2 12/24/16 18:55: Lactic Acid Followup at 4 Hours 3.4*H 12/25/16 05:27: Erythrocyte Sedimentation Rate , Anion Gap 5L, Glomerular Filtration Rate > 60.0 , Blood Urea Nitrogen 19H, Creatinine 0.62L, Sodium Level 136, Potassium Level 4.6, Chloride Level 108H, Carbon Dioxide Level 23, Calcium Level 8.2L, C- Reactive Protein, Quantitative 1.74H CBC/BMP Laboratory Tests 12/25/16 05:27 Red Blood Count 2.70 L, Mean Corpuscular Volume 94.6, Mean Corpuscular Hemoglobin 31.5, Mean Corpuscular Hemoglobin Concent 33.3, Red Cell Distribution Width 13.0, Calcium Level 8.2 L Microbiology Microbiology 12/24/16 Blood Culture - Preliminary, Resulted No growth after 24 hours . All specim... 12/24/16 Blood Culture - Preliminary, Resulted No growth after 24 hours . All specim... 12/25/16 Gastrointestinal Tract Panel (PCR) - Final, Complete Alessandro Henriquez RPA-C December 25, 2016 11:22 Dawit Nick MD December 25, 2016 15:40
[2016-12-25] MEDS: ACETAMINOPHEN TAB 650MG DOSE (2X325MG) PO PRN (13:53)
[2016-12-25 14:00] VITALS: BP 130/62
[2016-12-25 19:50] LABS: REDUCING SUBSTANCE SOURCE STOOL
[2016-12-25] MEDS: CETIRIZINE (ZyrTEC) 10 MG TAB PO SCH (21:20)
[2016-12-25 22:00] VITALS: BP 103/56
[2016-12-26] MEDS: MEROPENEM INJ 1 GM in D5W MINI-BAG PLUS 100 ML IV SCH ×3 (01:44→19:59)
[2016-12-26] MEDS: HEPARIN SOD (PORCINE) 5000 UNITS/ML VIAL SC SCH ×3 (05:06→20:44)
[2016-12-26 05:35] LABS: MEAN CORPUSCULAR HEMOGLOBIN 31.3 pg (27.0-33.0); MEAN CORPUSCULAR HGB CONC 33.8 g/dl (32.0-36.5); MEAN CORPUSCULAR VOLUME 92.6 fl (80.0-96.0); RED CELL DISTRIBUTION WIDTH 13.4 % (11.5-14.5)
[2016-12-26 05:45] LABS: ANION GAP 6 MEQ/L (8-16); BLOOD UREA NITROGEN 9 MG/DL (7-18); CALCIUM LEVEL 7.5 MG/DL (8.5-10.1); CARBON DIOXIDE LEVEL 22 MEQ/L (21-32); CHLORIDE LEVEL 110 MEQ/L (98-107); CREATININE FOR GFR 0.49 MG/DL (0.70-1.30); GLOMERULAR FILTRATION RATE > 60.0 (>60); GLUCOSE, FASTING 92 MG/DL (70-105); POTASSIUM SERUM 3.9 MEQ/L (3.5-5.1); SODIUM LEVEL 138 MEQ/L (136-145)
[2016-12-26 06:00] VITALS: BP 110/57
[2016-12-26] MEDS: NS 1,000 ML IV SCH (07:56)
[2016-12-26] MEDS: CARBAMAZEPINE 200 MG/10 ML PO SCH ×3 (07:57→20:43)
[2016-12-26] MEDS: PHENYTOIN 50 MG CHEW TABLET PO SCH ×3 (07:57→14:40)
[2016-12-26] MEDS: CALCIUM CARB SUSP 1250MG/5ML UNIT DOSE CUP PO SCH ×3 (07:57→20:43)
[2016-12-26] MEDS: SIMETHICONE 80 MG CHEW TAB PO SCH ×3 (07:57→20:42)
[2016-12-26] MEDS: VITAMIN D 1,000 INTERNATIONAL UNITS TABLET PO SCH (07:58)
[2016-12-26] MEDS: BUDESONIDE EC 3 MG CAP (ENTOCORT EC) PO SCH (07:58)
--- NOTE | 2016-12-26 09:36 | IPNPDOC ---
Subjective Date Seen The patient was seen on 12/26/16. Subjective Chief Complaint/HPI The patient is a 36-year-old male admitted with a reason for visit of Leukocytosis. Events since last encounter [facility] staff at bedside. States doing well. Continues with liquid stools. General: Reports: ROS Unobtainable Constitutional: Denies: Fever Pulmonary: Denies: Cough Objective Physical Examination General Exam: Positive: Alert, No Acute Distress Neck Exam: Positive: Supple, Negative: JVD Chest Exam: Positive: Clear to auscultation Heart Exam: Positive: Rate Normal, Regular Rhythm Abdomen Exam: Positive: Normal bowel sounds, Soft, Other (ostomy: pink, draining liquid stool), Negative: Tenderness Extremity Exam: Negative: Edema Assessment /Plan Problems (1) Anemia Status: Acute Problem Text: 2 units RBC. stool for occult blood ordered. (2) Leukocytosis Status: Acute Problem Specific Plan: Monitor Clinically, Repeat Labs Problem Text: 12/26/2016: WBC down to 10,000 today. IV Meropenem day #3. 12/25 - WBC down to 13.3 today. On IV Meropenem. ?Crohn's flare - Consult Dr Zavala. I notified him. Family states that Humira was stopped as it was not helping. LA was 2.2 yesterday but 3.4 yesterday afternoon. Will recheck LA. On Entocort. (3) Lactic acidosis Status: Acute Problem Specific Plan: Monitor Clinically, Repeat Labs Problem Text: 12/25 - LA was 2.2 yesterday but 3.4 yesterday afternoon. Will recheck LA. WBC down to 13.3 today. On IV Meropenem. (4) Diarrhea Status: Acute Problem Specific Plan: Monitor Clinically, Repeat Labs Problem Text: 12/25 - WBC down to 13.3 today. On IV Meropenem. ?Crohn's flare - Consult Dr Zavala. I notified him. Family states that Humira was stopped as it was not helping. LA was 2.2 yesterday but 3.4 yesterday afternoon. Will recheck LA. On Entocort. (5) Hyponatremia Status: Acute Response to Treatment: Improving Problem Specific Plan: Repeat Labs Problem Text: 12/26/2016: NA 138. Will DC IVF. drinking and eating well. 12/25 - Na 136 today. IVF. (6) Seizure disorder Status: Chronic Problem Specific Plan: Monitor Clinically Problem Text: On Tegretol and Dilantin. (7) Mental retardation Status: Chronic Problem Specific Plan: Monitor Clinically Problem Text: Baseline. Plan/VTE VTE Prophylaxis Ordered?: Yes VS, I&O, 24H, Fishbone Vital Signs/I&O Vital Signs Date Time Temp Pulse Resp B/P (MAP) Pulse Ox O2 Delivery O2 Flow Rate FiO2 12/26/16 06:00 98.1 101 18 110/57 (74) 96 12/25/16 14:00 Room Air I&O- Last 24 Hours up to 6 AM 12/26/16 06:00 Intake Total 2260 ml Output Total 300 ml Balance 1960 ml Laboratory Data 24H LABS Laboratory Tests 2 12/25/16 12:05: Lactic Acid Level 1.0 12/25/16 18:58: Reducing Substances Source STOOL, Reducing Substances NEGATIVE 12/26/16 05:05: Erythrocyte Sedimentation Rate 46H, Anion Gap 6L, Glomerular Filtration Rate > 60.0, Blood Urea Nitrogen 9#, Creatinine 0.49L, Sodium Level 138, Potassium Level 3.9, Chloride Level 110H, Carbon Dioxide Level 22, Calcium Level 7.5L, C- Reactive Protein, Quantitative 2.01H CBC/BMP Laboratory Tests 12/26/16 05:05 Red Blood Count 2.32 L, Mean Corpuscular Volume 92.6, Mean Corpuscular Hemoglobin 31.3, Mean Corpuscular Hemoglobin Concent 33.8, Red Cell Distribution Width 13.4, Calcium Level 7.5 L Microbiology Microbiology 12/24/16 Blood Culture - Preliminary, Resulted No growth after 24 hours . All specim... 12/24/16 Blood Culture - Preliminary, Resulted No growth after 24 hours . All specim... 12/25/16 Gastrointestinal Tract Panel (PCR) - Final, Complete Attending Note Attending Note Added octreotide to reduce stool flux and water loss. Recent facial trauma. Unable to assess how much residual sinus area pain there is on left. Improving WBC. Will do sinus CT to r/o trauma and sinusitis Keara Hunt December 26, 2016 09:36 Dawit Nick MD December 26, 2016 14:52
[2016-12-26 14:00] VITALS: BP 115/65
[2016-12-26] MEDS: OCTREOTIDE ACETATE 100 MCG/ML VIAL (J2354) IV SCH ×2 (14:41→20:43)
--- NOTE | 2016-12-26 17:19 | REP ---
CT MAXILLOFACIAL WITHOUT CONTRAST: 12/26/2016: Clinical history: Leukocytosis, recent facial trauma. Technique: Axial thin-section soft-tissue and bone windows with coronal and sagittal bone window reconstructions. Findings: There is deviation the nasal septum towards the left. The septum abutting the medial wall of the left maxillary antrum. I see no acute fracture of the nasal bones or nasal spine of the maxilla. There is mucosal thickening and filling of the left frontal sinus and ethmoid recess. A few of the left ethmoid air cells are opacified. The right frontal sinus is diminutive. Right ethmoid air cells are clear. Sphenoid sinuses are clear. Right maxillary sinus shows minimal mucosal thickening in the floor and there is mild stenosis at the ostium and infundibulum with a large Maikel cell present. The left maxillary sinus shows only minimal mucosal thickening in the floor and also causing stenosis and occlusion of the infundibulum and stenosis of the ostium of the left OMC. Orbital floors are intact. The orbital struts, medial orbital mejia and zygomatic arches are all intact. Visualized mastoids intact. The left mastoids are unremarkable. The right mastoids are asymmetric with poor aeration on a developmental basis. That portion of the skull base, orbits mandible and the craniocervical junction with upper cervical levels all intact. Impression: 1. There is a near complete opacification of the left frontal sinus with multiple left ethmoid air cells with mucosal thickening in a few partially opacified left ethmoid sinuses without air-fluid levels. 2. Occlusion of the infundibulum and stenosis of the ostium on the left OM C with mild stenosis right OMC and infundibulum. Bilateral Maikel cells are noted. 3. Significant deviation of the septum towards the left with the septum abutting the medial wall of the left maxillary sinus. I do not see acute nasal bone fracture. 4. No orbital bone fracture. The orbital contents are intact. Zygomatic arches intact. 5. Asymmetric mastoid aeration on a developmental basis with poor aeration of the right mastoid sinus. Signed by Chong Richard MD 12/26/2016 05:29 P
[2016-12-26] MEDS: CETIRIZINE (ZyrTEC) 10 MG TAB PO SCH (20:43)
[2016-12-26 22:00] VITALS: BP 131/69
[2016-12-27] MEDS: NS 1,000 ML IV SCH ×3 (00:43→16:31)
[2016-12-27] MEDS: MEROPENEM INJ 1 GM in D5W MINI-BAG PLUS 100 ML IV SCH ×3 (00:45→16:30)
[2016-12-27] MEDS: HEPARIN SOD (PORCINE) 5000 UNITS/ML VIAL SC SCH ×3 (05:07→20:30)
[2016-12-27] MEDS: OCTREOTIDE ACETATE 100 MCG/ML VIAL (J2354) IV SCH ×3 (05:07→20:29)
[2016-12-27 05:33] LABS: MEAN CORPUSCULAR HEMOGLOBIN 32.6 pg (27.0-33.0); MEAN CORPUSCULAR HGB CONC 34.3 g/dl (32.0-36.5); RED CELL DISTRIBUTION WIDTH 13.7 % (11.5-14.5); WHITE BLOOD COUNT 7.4 K/mm3 (4.0-10.0)
[2016-12-27 06:00] VITALS: BP 126/84
[2016-12-27 06:09] LABS: ANION GAP 9 MEQ/L (8-16); BLOOD UREA NITROGEN 5 MG/DL (7-18); CALCIUM LEVEL 7.9 MG/DL (8.5-10.1); CARBON DIOXIDE LEVEL 23 MEQ/L (21-32); CHLORIDE LEVEL 108 MEQ/L (98-107); CREATININE FOR GFR 0.45 MG/DL (0.70-1.30); GLOMERULAR FILTRATION RATE > 60.0 (>60); GLUCOSE, FASTING 87 MG/DL (70-105); SODIUM LEVEL 140 MEQ/L (136-145)
[2016-12-27] MEDS: CALCIUM CARB SUSP 1250MG/5ML UNIT DOSE CUP PO SCH ×3 (09:00→20:30)
[2016-12-27] MEDS: BUDESONIDE EC 3 MG CAP (ENTOCORT EC) PO SCH (09:00)
[2016-12-27] MEDS: CARBAMAZEPINE 200 MG/10 ML PO SCH ×3 (09:00→20:30)
[2016-12-27] MEDS: PHENYTOIN 50 MG CHEW TABLET PO SCH ×3 (09:01→16:30)
[2016-12-27] MEDS: VITAMIN D 1,000 INTERNATIONAL UNITS TABLET PO SCH (09:01)
[2016-12-27] MEDS: SIMETHICONE 80 MG CHEW TAB PO SCH ×3 (09:02→20:30)
[2016-12-27 14:00] VITALS: BP 122/58
[2016-12-27] MEDS: LORazepam 0.5 MG TAB PO PRN (20:29)
[2016-12-27] MEDS: CETIRIZINE (ZyrTEC) 10 MG TAB PO SCH (20:29)
[2016-12-27 22:00] VITALS: BP 96/52
--- NOTE | 2016-12-28 00:31 | IPNPDOC ---
Subjective Date Seen The patient was seen on 12/27/16. Subjective Chief Complaint/HPI The patient is a 36-year-old male admitted with a reason for visit of Leukocytosis. Events since last encounter Mother and father present when patient seen today. At the time of exam, Dr. Zavala had communicated approval of octreotide, but formal consult was pending. Parents feel that patient was feeling better, with decreased stool. He has not seemed to them to have abdominal discomfort. General: Reports: ROS Unobtainable Psych: Reports: Mood Normal, Other Psych (unable to communicate ) Objective Physical Examination General Exam: Positive: Alert, No Acute Distress Neck Exam: Positive: Supple, Negative: JVD Chest Exam: Positive: Clear to auscultation Heart Exam: Positive: Rate Normal, Regular Rhythm Abdomen Exam: Positive: Normal bowel sounds, Soft, Other (ostomy: pink, draining liquid stool), Negative: Tenderness Extremity Exam: Negative: Edema Psych Exam: Positive: Other (unable to commnicate) Assessment /Plan Problems (1) Anemia Status: Acute Problem Text: 2 units RBC. stool for occult blood ordered. (2) Leukocytosis Status: Acute Problem Specific Plan: Monitor Clinically, Repeat Labs Problem Text: 12/27: WBCs continue to improve, with WBCs of 7.4. Day 3 of meropenem. 12/26/2016: WBC down to 10,000 today. IV Meropenem day #3. 12/25 - WBC down to 13.3 today. On IV Meropenem. ?Crohn's flare - Consult Dr Zavala. I notified him. Family states that Humira was stopped as it was not helping. LA was 2.2 yesterday but 3.4 yesterday afternoon. Will recheck LA. On Entocort. (3) Lactic acidosis Status: Acute Problem Specific Plan: Monitor Clinically, Repeat Labs Problem Text: 12/25 - LA was 2.2 yesterday but 3.4 yesterday afternoon. Will recheck LA. WBC down to 13.3 today. On IV Meropenem. (4) Diarrhea Status: Acute Problem Specific Plan: Monitor Clinically, Repeat Labs Problem Text: 12/25 - WBC down to 13.3 today. On IV Meropenem. ?Crohn's flare - Consult Dr Zavala. I notified him. Family states that Humira was stopped as it was not helping. LA was 2.2 yesterday but 3.4 yesterday afternoon. Will recheck LA. On Entocort. (5) Hyponatremia Status: Acute Response to Treatment: Improving Problem Specific Plan: Repeat Labs Problem Text: 12/26/2016: NA 138. Will DC IVF. drinking and eating well. 12/25 - Na 136 today. IVF. (6) Seizure disorder Status: Chronic Problem Specific Plan: Monitor Clinically Problem Text: On Tegretol and Dilantin. (7) Mental retardation Status: Chronic Problem Specific Plan: Monitor Clinically Problem Text: Baseline. Plan/VTE VTE Prophylaxis Ordered?: Yes VS, I&O, 24H, Fishbone Vital Signs/I&O Vital Signs Date Time Temp Pulse Resp B/P (MAP) Pulse Ox O2 Delivery O2 Flow Rate FiO2 12/27/16 22:00 98.9 94 16 96/52 (67) 98 Room Air I&O- Last 24 Hours up to 6 AM 12/28/16 06:00 Intake Total 1400 ml Output Total 450 ml Balance 950 ml Laboratory Data 24H LABS Laboratory Tests 2 12/27/16 05:11: Anion Gap 9, Glomerular Filtration Rate > 60.0, Blood Urea Nitrogen 5L, Creatinine 0.45L, Sodium Level 140, Potassium Level 4.0, Chloride Level 108H, Carbon Dioxide Level 23, Calcium Level 7.9L, C-Reactive Protein, Quantitative 1.79H 12/27/16 08:13: Erythrocyte Sedimentation Rate 25H CBC/BMP Laboratory Tests 12/27/16 05:11 Red Blood Count 3.22 L, Mean Corpuscular Volume 95.0, Mean Corpuscular Hemoglobin 32.6, Mean Corpuscular Hemoglobin Concent 34.3, Red Cell Distribution Width 13.7, Calcium Level 7.9 L Microbiology Microbiology 12/24/16 Blood Culture - Preliminary, Resulted No Growth after 72 hours. All specime... 12/24/16 Blood Culture - Preliminary, Resulted No Growth after 72 hours. All specime... 12/26/16 Stool Occult Blood (COURTNEY) - Final, Complete 12/25/16 Gastrointestinal Tract Panel (PCR) - Final, Complete DOMINIQUE NGUYEN DO December 28, 2016 00:31
[2016-12-28] MEDS: MEROPENEM INJ 1 GM in D5W MINI-BAG PLUS 100 ML IV SCH ×3 (00:45→16:06)
--- NOTE | 2016-12-28 03:41 | CR ---
DATE OF CONSULTATION: 12/27/2016 This is a 36-year-old white male who was admitted to [facility] ([facility]) for evaluation of leukocytosis. The patient has multiple medical problems including mental retardation secondary to anoxic brain damage, seizure disorder, anemia, apparent history of Crohn's disease with an ileostomy, osteoporosis, reflux and a high output ileostomy. PAST SURGICAL HISTORY: Positive for subtotal colectomy for Crohn's, ileostomy. He has had an exploratory laparotomy for a small bowel obstruction and small bowel resection, repair of parastomal hernias. He has a right-sided ileostomy and he has had a previous repair of the ileostomy for ileostomy prolapse. ALLERGIES: To FLAGYL, CEPHALOSPORIN, PENICILLIN, GENTAMICIM, QUINOLONES. FAMILY HISTORY: Noncontributory to the above problem. SOCIAL HISTORY: Cigarettes, alcohol, drugs negative. REVIEW OF SYSTEMS: Noncontributory to the above problem. Generally, he is a thin, white male somewhat contracted, in no acute distress with an ileostomy on the right side. Chest is clear to auscultation. Cardiovascular: Regular rhythm. No murmur, rubs or gallops. Normal physiological split at S1 and S2. Abdomen: Soft, ileostomy in the right side. No hepatosplenomegaly. Bowel sounds positive. Extremities: No cyanosis, clubbing or edema. Homans negative. LABORATORY STUDIES: On admission showed white count 13,300, hemoglobin and hematocrit is 10.5 and 30.5. The white count came down to 7400. The patient had a CRP of 1.79. GI panel was negative. Blood cultures are negative. The patient was occult blood positive. Abdominal CT was negative on 12/24/2016, for any pathology except for the ileostomy noted. ANALYSIS: High output ileostomy. 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 Would recommend the patient be maintained on loperamide to help control diarrhea. He has been tried on Humira; however, the family felt it was not contributing to control of the diarrhea. Octreotide can be given as an outpatient subcutaneously. I would recommend 50-100 mcg subcutaneously every 12 hours, which can be titrated to affect to control bowel movements. The use of higher doses of loperamide to be also considered and possible use of narcotics to help control bowel frequency. Small frequent meals should be considered to help provide high output. Plan as above.
[2016-12-28] MEDS: OCTREOTIDE ACETATE 100 MCG/ML VIAL (J2354) IV SCH ×3 (05:13→21:46)
[2016-12-28] MEDS: NS 1,000 ML IV SCH ×2 (05:14→16:06)
[2016-12-28] MEDS: HEPARIN SOD (PORCINE) 5000 UNITS/ML VIAL SC SCH ×3 (05:14→21:46)
[2016-12-28 05:28] LABS: MEAN CORPUSCULAR HEMOGLOBIN 32.1 pg (27.0-33.0); MEAN CORPUSCULAR HGB CONC 34.5 g/dl (32.0-36.5); MEAN CORPUSCULAR VOLUME 93.1 fl (80.0-96.0); RED CELL DISTRIBUTION WIDTH 14.2 % (11.5-14.5)
[2016-12-28 05:52] LABS: ANION GAP 8 MEQ/L (8-16); BLOOD UREA NITROGEN 4 MG/DL (7-18); CALCIUM LEVEL 7.3 MG/DL (8.5-10.1); CARBON DIOXIDE LEVEL 24 MEQ/L (21-32); CHLORIDE LEVEL 110 MEQ/L (98-107); CREATININE FOR GFR 0.49 MG/DL (0.70-1.30); GLOMERULAR FILTRATION RATE > 60.0 (>60); GLUCOSE, FASTING 90 MG/DL (70-105); POTASSIUM SERUM 3.9 MEQ/L (3.5-5.1); SODIUM LEVEL 142 MEQ/L (136-145)
[2016-12-28 06:00] VITALS: BP 103/54
[2016-12-28] MEDS: ACETAMINOPHEN TAB 650MG DOSE (2X325MG) PO PRN (08:47)
[2016-12-28] MEDS: BUDESONIDE EC 3 MG CAP (ENTOCORT EC) PO SCH (08:48)
[2016-12-28] MEDS: VITAMIN D 1,000 INTERNATIONAL UNITS TABLET PO SCH (08:48)
[2016-12-28] MEDS: CARBAMAZEPINE 200 MG/10 ML PO SCH ×3 (08:48→21:46)
[2016-12-28] MEDS: CALCIUM CARB SUSP 1250MG/5ML UNIT DOSE CUP PO SCH ×3 (08:48→21:46)
[2016-12-28] MEDS: SIMETHICONE 80 MG CHEW TAB PO SCH ×3 (08:48→21:46)
[2016-12-28] MEDS: PHENYTOIN 50 MG CHEW TABLET PO SCH ×3 (08:49→16:07)
[2016-12-28] MEDS: CETIRIZINE (ZyrTEC) 10 MG TAB PO SCH (21:46)
[2016-12-28] MEDS: LORazepam 0.5 MG TAB PO PRN (21:56)
[2016-12-28 22:00] VITALS: BP 129/86
--- NOTE | 2016-12-28 22:38 | IPNPDOC ---
Subjective Date Seen The patient was seen on 12/28/16. Subjective Chief Complaint/HPI The patient is a 36-year-old male admitted with a reason for visit of Leukocytosis. Events since last encounter Mother reports stools are more controlled, patient has seemed more comfortable. Yesterday she felt that he was bloated, today less so. General: Reports: ROS Unobtainable Objective Physical Examination General Exam: Positive: Alert, Cooperative, No Acute Distress Neck Exam: Positive: Supple, Negative: JVD Chest Exam: Positive: Clear to auscultation Heart Exam: Positive: Rate Normal, Regular Rhythm Abdomen Exam: Positive: Normal bowel sounds, Soft, Other (ostomy: pink, draining soft stool), Negative: Tenderness Extremity Exam: Negative: Edema Psych Exam: Positive: Other (unable to commnicate) Assessment /Plan Problems (1) Complication of ostomy Status: Acute Problem Text: 12/28 -- Dr. Zavala feels patient's complaints are the result of high output from his ostomy. He recommends octreotide at home. [facility] able to administer this. Symptoms much better controlled at this time. (2) Anemia Status: Acute Problem Text: 12/28: H&H steady. Continue to monitor. GI aware and feels no further workup needed at this time. 2 units RBC. stool for occult blood ordered. (3) Lactic acidosis Status: Acute Problem Specific Plan: Monitor Clinically, Repeat Labs Problem Text: 12/25 - LA was 2.2 yesterday but 3.4 yesterday afternoon. Will recheck LA. WBC down to 13.3 today. On IV Meropenem. (4) Diarrhea Status: Acute Problem Specific Plan: Monitor Clinically, Repeat Labs Problem Text: 12/25 - WBC down to 13.3 today. On IV Meropenem. ?Crohn's flare - Consult Dr Zavala. I notified him. Family states that Humira was stopped as it was not helping. LA was 2.2 yesterday but 3.4 yesterday afternoon. Will recheck LA. On Entocort. (5) Seizure disorder Status: Chronic Problem Specific Plan: Monitor Clinically Problem Text: On Tegretol and Dilantin. (6) Mental retardation Status: Chronic Problem Specific Plan: Monitor Clinically Problem Text: Baseline. (7) Leukocytosis Status: Resolved Problem Specific Plan: Monitor Clinically, Repeat Labs Problem Text: 12/27: WBCs continue to improve, with WBCs of 7.4. Day 3 of meropenem. 12/26/2016: WBC down to 10,000 today. IV Meropenem day #3. 12/25 - WBC down to 13.3 today. On IV Meropenem. ?Crohn's flare - Consult Dr Zavala. I notified him. Family states that Humira was stopped as it was not helping. LA was 2.2 yesterday but 3.4 yesterday afternoon. Will recheck LA. On Entocort. (8) Hyponatremia Status: Resolved Response to Treatment: Improving Problem Specific Plan: Repeat Labs Problem Text: 12/26/2016: NA 138. Will DC IVF. drinking and eating well. 12/25 - Na 136 today. IVF. Plan/VTE VTE Prophylaxis Ordered?: Yes VS, I&O, 24H, Fishbone Vital Signs/I&O Vital Signs Date Time Temp Pulse Resp B/P (MAP) Pulse Ox O2 Delivery O2 Flow Rate FiO2 12/28/16 06:00 98.1 92 18 103/54 (70) 96 Room Air I&O- Last 24 Hours up to 6 AM 12/28/16 06:00 Intake Total 2460 ml Output Total 450 ml Balance 2010 ml Laboratory Data 24H LABS Laboratory Tests 2 12/28/16 05:11: Erythrocyte Sedimentation Rate 16H, Anion Gap 8, Glomerular Filtration Rate > 60.0, Blood Urea Nitrogen 4L, Creatinine 0.49L, Sodium Level 142, Potassium Level 3.9, Chloride Level 110H, Carbon Dioxide Level 24, Calcium Level 7.3L, C- Reactive Protein, Quantitative 1.16H CBC/BMP Laboratory Tests 12/28/16 05:11 Red Blood Count 3.26 L, Mean Corpuscular Volume 93.1, Mean Corpuscular Hemoglobin 32.1, Mean Corpuscular Hemoglobin Concent 34.5, Red Cell Distribution Width 14.2, Calcium Level 7.3 L Microbiology Microbiology 12/24/16 Blood Culture - Preliminary, Resulted No Growth after 72 hours. All specime... 12/24/16 Blood Culture - Preliminary, Resulted No Growth after 72 hours. All specime... 12/26/16 Stool Occult Blood (COURTNEY) - Final, Complete 5/11/17 Gastrointestinal Tract Panel (PCR) - Final, Complete DOMINIQUE NGUYEN DO December 28, 2016 22:38
[2016-12-29] MEDS: MEROPENEM INJ 1 GM in D5W MINI-BAG PLUS 100 ML IV SCH ×2 (01:19→09:47)
[2016-12-29] MEDS: NS 1,000 ML IV SCH (04:47)
[2016-12-29] MEDS: OCTREOTIDE ACETATE 100 MCG/ML VIAL (J2354) IV SCH ×2 (04:47→12:50)
[2016-12-29 06:00] VITALS: BP 105/57
[2016-12-29] MEDS: HEPARIN SOD (PORCINE) 5000 UNITS/ML VIAL SC SCH (06:22)
[2016-12-29 08:43] LABS: MEAN CORPUSCULAR HEMOGLOBIN 31.5 pg (27.0-33.0); MEAN CORPUSCULAR HGB CONC 33.3 g/dl (32.0-36.5); MEAN CORPUSCULAR VOLUME 94.6 fl (80.0-96.0); RED CELL DISTRIBUTION WIDTH 14.2 % (11.5-14.5); WHITE BLOOD COUNT 7.5 K/mm3 (4.0-10.0)
[2016-12-29] MEDS ORDERED: OCTR100I SQ (09:05)
[2016-12-29 09:13] LABS: ANION GAP 7 MEQ/L (8-16); BLOOD UREA NITROGEN 2 MG/DL (7-18); CALCIUM LEVEL 7.7 MG/DL (8.5-10.1); CARBON DIOXIDE LEVEL 26 MEQ/L (21-32); CHLORIDE LEVEL 109 MEQ/L (98-107); CREATININE FOR GFR 0.45 MG/DL (0.70-1.30); GLOMERULAR FILTRATION RATE > 60.0 (>60); GLUCOSE, FASTING 107 MG/DL (70-105); POTASSIUM SERUM 3.8 MEQ/L (3.5-5.1); SODIUM LEVEL 142 MEQ/L (136-145)
[2016-12-29] MEDS ORDERED: BUDE3CAP PO (09:21)
[2016-12-29] MEDS: VITAMIN D 1,000 INTERNATIONAL UNITS TABLET PO SCH (09:45)
[2016-12-29] MEDS: PHENYTOIN 50 MG CHEW TABLET PO SCH ×2 (09:45→12:51)
[2016-12-29] MEDS: CALCIUM CARB SUSP 1250MG/5ML UNIT DOSE CUP PO SCH (09:46)
[2016-12-29] MEDS: CARBAMAZEPINE 200 MG/10 ML PO SCH (09:46)
[2016-12-29] MEDS: SIMETHICONE 80 MG CHEW TAB PO SCH (09:46)
[2016-12-29] MEDS: BUDESONIDE EC 3 MG CAP (ENTOCORT EC) PO SCH (09:47)
--- NOTE | 2016-12-29 10:34 | DSES ---
DATE OF ADMISSION: 12/24/2016 DATE OF DISCHARGE: 12/29/2016 ATTENDING PHYSICIAN: Satish Barahona MD PRIMARY CARE PROVIDER: Cedrick Myers MD HISTORY OF PRESENT ILLNESS: 36-year-old male with past medical history significant for mental retardation from anoxic brain injury, seizure disorder, chronic anemia, Crohn's disease status post colostomy, osteoporosis, gastroesophageal reflux disease (GERD) who presented to [facility] via instructions from his primary care physician secondary to high output though his ostomy. The patient subsequently also had temperatures of 99.9 in the 24 hours prior to presenting to the emergency department (ED) and also had noted to have a previous admission for same condition between 12/15 and 12/19/2016. HOSPITAL COURSE: The patient continued to have subsequent high output; however his electrolytes remained stable. He was noted to have a significant amount of anemia with a positive occult blood. He was transfused for two units with significant improvement in his CBC which most recent reads 11 and 33. The patient is status post gastroenterology consultation by Dr. Aung Zavala. The patient was placed on Octreotide and budesonide per Dr. Zavala's recommendations, 50-100 micrograms of Octreotide subcutaneous every 12 hours can be titrated to control bowel movements. Also, can consider higher doses of loperamide, the use of opioids if necessary and small frequent meals should be considered to help improve high output. PHYSICAL EXAMINATION: VITAL SIGNS: On physical examination today the patient's vital signs are stable. He is afebrile. Intake and output (I O) shows significant improvement in output volume from his ileostomy. Activity has been stable. HEENT: Neck is supple without lymphadenopathy or jugular venous distention (JVD). CARDIOVASCULAR: Heart rate and rhythm are regular. PULMONARY: Lungs are clear. ABDOMEN: Soft, nontender. Ostomy is draining soft stool. BILATERAL LOWER EXTREMITIES; Without edema. The patient is cooperative in the exam room. He is nonverbal secondary to his anoxic brain injury. ASSESSMENT: 1. High output ileostomy. 2. Anemia due to acute blood loss. 3. Mental retardation secondary to anoxic brain injury. 4. Seizure disorder. 5. Chronic anemia. 6. History of Crohn's disease. 7. History of gastrointestinal reflux disease. PLAN: The patient will be discharged home. NEW PRESCRIPTIONS INCLUDE: - budesonide 6 mg by mouth every morning - octreotide acetate 100 mcg/mL, he is to receive 100 mcg subcutaneous every 12 hours and this can be titrated per PCP in followup. - acyclovir 400 mg orally three times a day as needed cold sores - calcium carbonate 5 mL by mouth three times a day - Tegretol 100 mg per 5 mL, 300 mg by mouth twice a day - Carbamazepine 100 mg per 5 mL, 200 mg by mouth nightly - Cetirizine 10 mg tablet by mouth nightly - Vitamin D3, 5000 international units by mouth daily - Benadryl 25 mg by mouth every four hours as needed for allergies - EpiPen as needed anaphylactic shock - multivitamin one daily - phenytoin 50 mg chewable, three orally in the morning to equal 150 mg in the morning - phenytoin 50 mg chewable 100 mg by mouth twice a day - simethicone 80 mg chewable 160 mg by mouth three times a day - triglycerides 15 mL by mouth three times a day The patient is discharged in stable satisfactory condition with no further questions at the time of discharge.
[2016-12-30 00:06] LABS: TISSUE TRANSGLUTAMINASE IgG 2 U/mL (0-5)
== END 2016-12-29 13:00 | disposition home or self-care (01) | DRG 392 ==
LOC: EDBD 09:40 → M ED 10:54 → M ED INP 14:56 → M MSPAV 16:48
PROVIDERS: ADMIT Internal Medicine; ATTEND Family Medicine
PROC: 30233N1 Transfusion of Nonautologous Red Blood Cells into Peripheral Vein, Percutaneous Approach (ICD-10-PCS; principal; 2016-12-26)
DX: K91.2 Postsurgical malabsorption, not elsewhere classified (principal); E87.2 Acidosis; E87.1 Hypo-osmolality and hyponatremia; D62 Acute posthemorrhagic anemia; G40.909 Epilepsy, unspecified, not intractable, without status epilepticus; K21.9 Gastro-esophageal reflux disease without esophagitis; F79 Unspecified intellectual disabilities; K52.9 Noninfective gastroenteritis and colitis, unspecified; Z79.899 Other long term (current) drug therapy; Z88.0 Allergy status to penicillin; Z88.8 Allergy status to other drugs, medicaments and biological substances; E87.5 Hyperkalemia

== ENCOUNTER → 2016-12-24 | Outpatient (CLI) | payer MEDICARE, MEDICAID ==
[~2016-12-24] MED LIST changes: +ACYC400T PO; +BENA25CA4 PO; +BUDE3CAP PO; +CERACRE EX; +CETI10TA PO; +D 50CAP PO; +DILA50HA PO; +EPIP0.3I2 IM; +EQ A1CRE3 EXT; +GAS80CHW PO; +HYDR25T PO; +HYDRCRE EX; +LEVA750T PO; +OCTR100I SQ; +VITA5ELUD PO; +[UNRECOGNIZED DRUG - CODE] PO
[2016-12-24 07:13] LABS: BASO % 0.2 % (0.0-1.0); EOS # 0.2 K/mm3 (0.0-0.50); LARGE UNSTAINED CELL # 0.3 K/mm3 (0.0-0.4); LARGE UNSTAINED CELL % 1.6 % (0.0-4.0); LYMPH # 2.8 K/mm3 (1.5-4.5); LYMPH % 12.8 % (24.0-44.0); MEAN CORPUSCULAR HEMOGLOBIN 31.6 pg (27.0-33.0); MEAN CORPUSCULAR HGB CONC 34.2 g/dl (32.0-36.5); MEAN CORPUSCULAR VOLUME 92.6 fl (80.0-96.0); MONO # 1.2 K/mm3 (0.0-0.8); MONO % 6.1 % (0.0-5.0); NEUTROPHILS # 15.2 K/mm3 (1.8-7.7); NEUTROPHILS % 78.4 % (36.0-66.0); PLATELET COUNT, AUTOMATED 590 k/mm3 (150-450); RED CELL DISTRIBUTION WIDTH 12.6 % (11.5-14.5); WHITE BLOOD COUNT 19.4 K/mm3 (4.0-10.0)
[2016-12-24 07:38] LABS: ALBUMIN 4.1 GM/DL (3.2-5.2); ALBUMIN/GLOBULIN RATIO 1.03 (1.00-1.93); ALKALINE PHOSPHATASE 120 U/L (45-117); ALT/SGPT 51 U/L (12-78); ANION GAP 8 MEQ/L (8-16); AST/SGOT 26 U/L (15-37); BILIRUBIN,TOTAL 0.2 MG/DL (0.2-1.0); BLOOD UREA NITROGEN 26 MG/DL (7-18); CALCIUM LEVEL 8.9 MG/DL (8.5-10.1); CARBON DIOXIDE LEVEL 22 MEQ/L (21-32); CHLORIDE LEVEL 103 MEQ/L (98-107); CREATININE FOR GFR 0.87 MG/DL (0.70-1.30); GLOMERULAR FILTRATION RATE > 60.0 (>60); GLUCOSE, FASTING 92 MG/DL (70-105); SODIUM LEVEL 133 MEQ/L (136-145); TOTAL PROTEIN 8.1 GM/DL (6.4-8.2)
[2016-12-24 07:40] LABS: POTASSIUM SERUM 5.2 MEQ/L (3.5-5.1)
== END ==
LOC: M LAB 06:03
PROVIDERS: ATTEND Family Medicine
DX: R19.7 Diarrhea, unspecified (principal)

== ENCOUNTER → 2017-01-09 | Outpatient (REF) | payer MEDICARE, MEDICAID ==
[~2017-01-09] MED LIST changes: +ACYC400T PO; +OCTR100I SQ
[2017-01-09 16:37] LABS: ALBUMIN 4.4 GM/DL (3.2-5.2); ALBUMIN/GLOBULIN RATIO 1.19 (1.00-1.93); ALKALINE PHOSPHATASE 106 U/L (45-117); ALT/SGPT 33 U/L (12-78); ANION GAP 7 MEQ/L (8-16); AST/SGOT 27 U/L (15-37); BILIRUBIN,TOTAL 0.3 MG/DL (0.2-1.0); BLOOD UREA NITROGEN 12 MG/DL (7-18); CALCIUM LEVEL 9.6 MG/DL (8.5-10.1); CARBAMAZEPINE (TEGRETOL) LEVEL 7.9 UG/ML (4.0-10.0); CARBON DIOXIDE LEVEL 23 MEQ/L (21-32); CHLORIDE LEVEL 108 MEQ/L (98-107); CREATININE FOR GFR 0.77 MG/DL (0.70-1.30); GLOMERULAR FILTRATION RATE > 60.0 (>60); GLUCOSE, FASTING 84 MG/DL (70-105); MAGNESIUM LEVEL 1.9 MG/DL (1.8-2.4); POTASSIUM SERUM 5.1 MEQ/L (3.5-5.1); SODIUM LEVEL 138 MEQ/L (136-145); TOTAL PROTEIN 8.1 GM/DL (6.4-8.2)
[2017-01-09 16:41] LABS: BASO % 0.4 % (0.0-1.0); EOS # 0.2 K/mm3 (0.0-0.50); EOS % 1.8 % (0.0-3.0); LARGE UNSTAINED CELL # 0.2 K/mm3 (0.0-0.4); LARGE UNSTAINED CELL % 2.5 % (0.0-4.0); LYMPH # 1.5 K/mm3 (1.5-4.5); LYMPH % 18.3 % (24.0-44.0); MEAN CORPUSCULAR HGB CONC 33.4 g/dl (32.0-36.5); MEAN CORPUSCULAR VOLUME 95.9 fl (80.0-96.0); MONO # 0.9 K/mm3 (0.0-0.8); MONO % 10.8 % (0.0-5.0); NEUTROPHILS # 5.4 K/mm3 (1.8-7.7); NEUTROPHILS % 66.2 % (36.0-66.0); PLATELET COUNT, AUTOMATED 620 k/mm3 (150-450); WHITE BLOOD COUNT 8.2 K/mm3 (4.0-10.0)
== END ==
LOC: M SFHCPLAZ 13:14
PROVIDERS: ATTEND Family Medicine
DX: R19.7 Diarrhea, unspecified (principal)
CPT/HCPCS: 80053; 80156; 80185; 83735; 85025; 86140; G0463

== ENCOUNTER → 2017-01-21 | Outpatient (REF) | payer MEDICARE, MEDICAID ==
[2017-01-21 17:52] LABS: BASO % 0.3 % (0.0-1.0); EOS # 0.1 K/mm3 (0.0-0.50); EOS % 0.8 % (0.0-3.0); LARGE UNSTAINED CELL # 0.2 K/mm3 (0.0-0.4); LARGE UNSTAINED CELL % 1.6 % (0.0-4.0); LYMPH # 2.4 K/mm3 (1.5-4.5); LYMPH % 16.8 % (24.0-44.0); MEAN CORPUSCULAR HEMOGLOBIN 31.6 pg (27.0-33.0); MEAN CORPUSCULAR HGB CONC 34.9 g/dl (32.0-36.5); MEAN CORPUSCULAR VOLUME 90.6 fl (80.0-96.0); MONO # 0.9 K/mm3 (0.0-0.8); MONO % 6.9 % (0.0-5.0); NEUTROPHILS # 9.5 K/mm3 (1.8-7.7); NEUTROPHILS % 73.5 % (36.0-66.0); PLATELET COUNT, AUTOMATED 437 k/mm3 (150-450); WHITE BLOOD COUNT 12.9 K/mm3 (4.0-10.0)
[2017-01-21 18:56] LABS: ERYTHROCYTE SEDIMENTATION RATE 12 mm/hr (0-15)
[2017-01-21 18:58] LABS: ALBUMIN 4.4 GM/DL (3.2-5.2); ALBUMIN/GLOBULIN RATIO 1.07 (1.00-1.93); ALKALINE PHOSPHATASE 112 U/L (45-117); ALT/SGPT 48 U/L (12-78); ANION GAP 9 MEQ/L (8-16); AST/SGOT 33 U/L (15-37); BILIRUBIN,TOTAL 0.3 MG/DL (0.2-1.0); BLOOD UREA NITROGEN 15 MG/DL (7-18); CALCIUM LEVEL 9.2 MG/DL (8.5-10.1); CARBON DIOXIDE LEVEL 19 MEQ/L (21-32); CHLORIDE LEVEL 102 MEQ/L (98-107); CREATININE FOR GFR 0.75 MG/DL (0.70-1.30); GLOMERULAR FILTRATION RATE > 60.0 (>60); GLUCOSE, FASTING 78 MG/DL (70-105); SODIUM LEVEL 130 MEQ/L (136-145); TOTAL PROTEIN 8.5 GM/DL (6.4-8.2)
== END ==
LOC: M SFHCPLAZ 15:51
PROVIDERS: ATTEND Physician Assistant Medical
DX: R19.7 Diarrhea, unspecified (principal); B35.9 Dermatophytosis, unspecified; E87.1 Hypo-osmolality and hyponatremia
CPT/HCPCS: 36415; 80053; 85025; 85652; 86140; 87507; G0463

== ENCOUNTER → 2017-02-11 | Outpatient (REF) | payer MEDICARE, MEDICAID ==
[~2017-02-11] MED LIST changes: +ATIV1TAB10 PO; +CERACRE TOP; +ENSU-12 PO; +EPIP0.3I2 INJ; +FERR1TAB8 PO; -FERR325T PO; +GAS1CHW PO; -GAS80CHW PO; +HYDR-3363 PO; -HYDR25T PO; -LEVA750T PO; +LEVA750T7 PO; +MORP20SO3 SL; +OCTR100I INJ; +OCTR100I SC; +PHEN50CH PO; +Scopolamine TOP; +ZOVI1CAP PO
[2017-02-11 16:38] LABS: ALBUMIN 4.3 GM/DL (3.2-5.2); ALKALINE PHOSPHATASE 118 U/L (45-117); ALT/SGPT 62 U/L (12-78); ANION GAP 8 MEQ/L (8-16); AST/SGOT 36 U/L (15-37); BILIRUBIN,TOTAL 0.2 MG/DL (0.2-1.0); BLOOD UREA NITROGEN 22 MG/DL (7-18); CALCIUM LEVEL 8.8 MG/DL (8.5-10.1); CARBON DIOXIDE LEVEL 22 MEQ/L (21-32); CHLORIDE LEVEL 102 MEQ/L (98-107); GLOMERULAR FILTRATION RATE > 60.0 (>60); GLUCOSE, FASTING 88 MG/DL (70-105); POTASSIUM SERUM 3.9 MEQ/L (3.5-5.1); SODIUM LEVEL 132 MEQ/L (136-145); TOTAL PROTEIN 8.2 GM/DL (6.4-8.2)
[2017-02-11 17:21] LABS: BASO % 0.3 % (0.0-1.0); EOS # 0.2 K/mm3 (0.0-0.50); LARGE UNSTAINED CELL # 0.2 K/mm3 (0.0-0.4); LARGE UNSTAINED CELL % 2.6 % (0.0-4.0); LYMPH # 2.1 K/mm3 (1.5-4.5); MEAN CORPUSCULAR HEMOGLOBIN 32.3 pg (27.0-33.0); MEAN CORPUSCULAR VOLUME 92.2 fl (80.0-96.0); MONO # 0.8 K/mm3 (0.0-0.8); NEUTROPHILS # 6.1 K/mm3 (1.8-7.7); NEUTROPHILS % 65.1 % (36.0-66.0); PLATELET COUNT, AUTOMATED 508 k/mm3 (150-450); WHITE BLOOD COUNT 9.4 K/mm3 (4.0-10.0)
[2017-02-11 21:04] LABS: ERYTHROCYTE SEDIMENTATION RATE 15 mm/hr (0-15)
== END ==
LOC: M SFHCPLAZ 14:15
PROVIDERS: ATTEND Physician Assistant Medical
DX: R63.4 Abnormal weight loss (principal)
CPT/HCPCS: 36415; 80053; 80185; 85025; 85652; 86140; G0463

== ENCOUNTER → 2017-04-23 | Outpatient (REF) | payer MEDICARE, MEDICAID ==
[2017-04-23 14:21] LABS: CARBAMAZEPINE (TEGRETOL) LEVEL 8.8 UG/ML (4.0-10.0)
== END ==
LOC: M SFHCPLAZ 11:50
PROVIDERS: ATTEND Physician Assistant Medical
DX: G40.909 Epilepsy, unspecified, not intractable, without status epilepticus (principal)

== ENCOUNTER 2017-05-11 10:30 | Inpatient (IN) | payer MEDICARE, MEDICAID ==
[~2017-05-11] VITALS: Ht 172.7 cm; Wt 45.3 kg
[~2017-05-11 10:30] MED LIST changes: -ATIV1TAB10 PO; -CERACRE TOP; -ENSU-12 PO; -EPIP0.3I2 INJ; -MORP20SO3 SL; -OCTR100I INJ; -OCTR100I SC; -PHEN50CH PO; -Scopolamine TOP; -ZOVI1CAP PO
[2017-05-11 11:21] LABS: VENOUS BASE EXCESS -8.8 (-2.0-2.0); VENOUS O2 SATURATION 76.3 % (60.0-80.0); VENOUS PARTIAL PRESSURE CO2 29.5 mmHg (38.0-50.0); VENOUS STANDARD HCO3 17.1 MEQ/L; VENOUS TOTAL CO2 16.6 MEQ/L (24.0-28.0)
[2017-05-11 11:22] LABS: BASO % 0.2 % (0.0-1.0); EOS % 0.3 % (0.0-3.0); IMMATURE GRANULOCYTE % 2.3 % (0-0); LYMPH # 1.8 10^3/uL (1.5-4.5); LYMPH % 13.3 % (24.0-44.0); MEAN CORPUSCULAR HEMOGLOBIN 31.6 pg (27.0-33.0); MEAN CORPUSCULAR VOLUME 81.6 fl (80.0-96.0); MONO # 1.3 10^3/uL (0.0-0.8); MONO % 9.7 % (0.0-5.0); NEUTROPHILS # 10.2 10^3/uL (1.8-7.7); NEUTROPHILS % 74.2 % (36.0-66.0); PLATELET COUNT, AUTOMATED 532 10^3/uL (150-450); RED CELL DISTRIBUTION WIDTH 11.5 % (11.5-14.5); WHITE BLOOD COUNT 13.8 10^3/uL (4.0-10.0)
[2017-05-11 11:24] LABS: INR 1.05
[2017-05-11 11:40] LABS: ALBUMIN 4.5 GM/DL (3.2-5.2); ALBUMIN/GLOBULIN RATIO 1.07 (1.00-1.93); ALKALINE PHOSPHATASE 101 U/L (45-117); ALT/SGPT 35 U/L (12-78); AMYLASE 81 U/L (25-115); ANION GAP 14 MEQ/L (8-16); AST/SGOT 25 U/L (15-37); BILIRUBIN,DIRECT 0.1 MG/DL (0.0-0.2); BILIRUBIN,TOTAL 0.3 MG/DL (0.2-1.0); BLOOD UREA NITROGEN 59 MG/DL (7-18); CALCIUM LEVEL 9.1 MG/DL (8.5-10.1); CARBON DIOXIDE LEVEL 19 MEQ/L (21-32); CHLORIDE LEVEL 87 MEQ/L (98-107); CREATININE FOR GFR 1.35 MG/DL (0.70-1.30); GLOMERULAR FILTRATION RATE > 60.0 (>60); GLUCOSE, FASTING 105 MG/DL (70-105); POTASSIUM SERUM 2.7 MEQ/L (3.5-5.1); SODIUM LEVEL 120 MEQ/L (136-145); TOTAL PROTEIN 8.7 GM/DL (6.4-8.2)
[2017-05-11] MEDS ORDERED: NS 1,000 ML IV ONE ×2 (11:45→14:15)
--- NOTE | 2017-05-11 12:31 | REP ---
Portable chest, 12:05 p.m.: Comparison 12/24/2016. The lung brooks are clear. The cardiac size is normal. The becky, mediastinum, and bony thorax are unremarkable. There is gaseous distension of the stomach beneath the left hemidiaphragm. This was also present previously. Impression: Negative portable chest. There is no interval change. Signed by Saulo Kemp MD 05/11/2017 12:22 P
[2017-05-11 12:32] LABS: MEAN CORPUSCULAR HGB CONC 38.7 g/dl (32.0-36.5)
[2017-05-11] MEDS: NS 1,000 ML IV SCH ×2 (12:55→19:56)
--- NOTE | 2017-05-11 13:42 | HPEPDOC ---
[facility] Medical History & Physical Date of Admission May 11, 2017 History and Physical ATTENDING: Dr. Myers PCP: Louis CC: AMS HPI: 36yoM with a past medical history significant for anoxic brain injury, seizure disorder, Crohn's disease s/p colostomy, [facility] resident who was noted this AM by staff to be unable to stand or feed himself. Staff reported no fevers , chills, weakness, fatigue, FORBES, CP, SOB, cough, palpitations, abdominal pain, N /V or changes in bladder habits. Pt mother reports that he has had very watery stool for the past 1 week. Yesterday he did not seem to be himself and was tired, not wanting to eat/drink very much. Upon presentation to the hospital the patient was found to have hyponatremia, thus the hospitalist team was consulted. PMHx: 1. Mental retardation secondary to anoxic brain injury. 2. Seizure disorder. 3. Chronic anemia. 4. Crohn's/ulcerative colitis status post ileostomy. H/O high output. 5. History of herpes simplex virus (HSV). 6. History of nephrolithiasis. 7. Osteoporosis. 8. Gastroesophageal reflux disease. 9. Poor IV access PSHX: multiple abdominal surgeries Colectomy/Ileostomy 03/27 [place] Small bowel resection/SBO 10/27 repair of parastomal hernia 05/28 ileostomy relocation repair of ileostomy collapse SOCHX: Resides in: [facility] resident Tobacco use: denies ETOH: denies Illicit Drugs: Denies Advanced directives: Full code FAMHX: non contributory ROS: Pt is unable to provide. PE: GEN: 36yoM, appears stated age. Thin appearing. Alert, non verbal. HEENT: Normocephalic, atraumatic. Pupils are equal, round, and reactive to light. No nystagmus appreciated. Sclera are nonicteric. Conjunctiva without injection. Nose midline. No facial asymmetry.Dry appearing mucous membranes. Dentition poor. Pharynx pink and dry. Neck supple, trachea midline. No lymphadenopathy or thyromegaly appreciated. CHEST: Regular rate and rhythm, +S1, +S2 LUNGS: Clear to auscultation bilaterally. No wheezes, rales, or rhonchi. Breathing appears symmetric and easy. No accessory muscle use. ABD: Flat, soft, non-tender, non-distended. +Bowel sounds throughout. ostomy with soft stool. EXT: Pulses 2+ bilaterally dorsalis pedis and radial. No lower extremity edema appreciated. SKIN: [place], dry, warm. No rashes. NEURO: No focal deficits appreciated. Moving UEs and LEs. Pt is non verbal. CXR: Negative portable chest. There is no interval change. EKG: ST, 103 bpm, IVCD. BLOOD CULTURES: pending LA pending. BC pending. UC pending. A&P: 36yoM with a past medical history significant for anoxic brain injury, seizure disorder, Crohn's disease s/p colostomy, [facility] resident who was noted this AM by staff to be unable to stand or feed himself. Staff reported no fevers , chills, weakness, fatigue, FORBES, CP, SOB, cough, palpitations, abdominal pain, N /V or changes in bladder habits. Pt mother reports that he has had very watery stool for the past 1 week. Yesterday he did not seem to be himself and was tired, not wanting to eat/drink very much. 1. The patient will be admitted to ICU for at least [address] Myers's service. Pt is discussed with Dr Weaver. 2. Hyponatremia. IVF x 1 liter in ED, additional 1 liter bolus ordered/pending. BMP Q4hr. Ser/Ur Osm/Ur Na/Cr uric acid pending. 3. Hypokalemia. KCL/Mag IV ordered. BMP Q4hrs. Subsequently Mag level noted to be 2.5. Mag IV d/cd. 4. ARUN. SCr 1.35, baseline 0.80. Dr Brasher, nephrology consulted and will follow pt. BMP Q4 hrs. 5. MR/Anoxic brain injury. Continue supportive care. 6. Seizure disorder. Seizure precautions. Continue outpt regimen. Tegretol/ Dilantin level pending. Tegretol level subsequently noted to be elevated, will hold HS Tegretol dose and recheck level in AM. 7. Crohn's disease/S/P colostomy with h/o high output. GI panel pending. ESR/ CRP pending. Octreotide SC Q12/Loperamide prn. Consider GI Clt when available. Subsequently Dr Weaver discussed case with GI, Dr Tol[place]. Agrees with above and recommends continue Trig MCT supplement as well. Discussed that there is a risk for infection at the ileostomy site typically seen if less than 2 years from surgery, however Pt had surgery last for prolapse 01/28. Consider further imaging and surgical consult if Pt symptoms or clinical status worsens. ESR pending. CRP <0.30. 8. Poor IV Access. PICC requested STAT as access is a concern. Pt mother has declined any further labs at this time until this is in place. Spoke with radiology,who will place PICC. DVT prophylaxis. The patient is a Full code. Vital Signs Vital Signs Date Time Temp Pulse Resp B/P (MAP) Pulse Ox O2 Delivery O2 Flow Rate FiO2 05/11/17 11:58 Room Air 05/11/17 11:51 89/52 (64) 05/11/17 11:45 106 100 05/11/17 10:31 97.2 20 Laboratory Data Labs 24H Laboratory Tests 2 05/11/17 11:08: White Blood Count 13.8H, Red Blood Count 3.70L, Hemoglobin 11.7L, Hematocrit 30.2L, Mean Corpuscular Volume 81.6, Mean Corpuscular Hemoglobin 31.6, Mean Corpuscular Hemoglobin Concent 38.7H, Red Cell Distribution Width 11.5, Platelet Count 532H, Neutrophils (%) (Auto) 74.2H, Lymphocytes (%) (Auto) 13.3L , Monocytes (%) (Auto) 9.7H, Eosinophils (%) (Auto) 0.3, Basophils (%) (Auto) 0.2, Neutrophils # (Auto) 10.2H, Lymphocytes # (Auto) 1.8, Monocytes # (Auto) 1.3H, Eosinophils # (Auto) 0.0, Basophils # (Auto) 0.0, Immature Granulocyte # ( Auto) 0.3H, Nucleated Red Blood Cells % (auto) 0.0, Prothrombin Time 13.8, Prothromb Time International Ratio 1.05, Activated Partial Thromboplast Time 26.9, Blood Gas Bicarbonate Standard 17.1, Venous Blood pH 7.343, Venous Blood Partial Pressure CO2 29.5L, Venous Blood Partial Pressure O2 42.0, Venous Blood Total Carbon Dioxide 16.6L, Venous Blood HCO3 15.7L, Venous Blood Oxygen Saturation 76.3, Venous Blood Base Excess -8.8L, Anion Gap 14, Glomerular Filtration Rate > 60.0, Lactic Acid Level 1.4, Calcium Level 9.1, Aspartate Amino Transf (AST/SGOT) 25, Alanine Aminotransferase (ALT/SGPT) 35, Alkaline Phosphatase 101, Total Bilirubin 0.3, Direct Bilirubin 0.1, Total Creatine Kinase 63, Creatine Kinase MB 1.9, Creatine Kinase MB Relative Index 3.01, Troponin I < 0.02, C-Reactive Protein, Quantitative < 0.30, Total Protein 8.7H, Albumin 4.5, Albumin/Globulin Ratio 1.07, Amylase Level 81 CBC/BMP Laboratory Tests 05/11/17 11:08 Red Blood Count 3.70 L, Mean Corpuscular Volume 81.6, Mean Corpuscular Hemoglobin 31.6, Mean Corpuscular Hemoglobin Concent 38.7 H, Red Cell Distribution Width 11.5, Neutrophils (%) (Auto) 74.2 H, Lymphocytes (%) (Auto) 13.3 L, Monocytes (%) (Auto) 9.7 H, Eosinophils (%) (Auto) 0.3, Basophils (%) ( Auto) 0.2, Neutrophils # (Auto) 10.2 H, Lymphocytes # (Auto) 1.8, Monocytes # ( Auto) 1.3 H, Eosinophils # (Auto) 0.0, Basophils # (Auto) 0.0 Microbiology Microbiology 05/11/17 Blood Culture, Received Pending 05/11/17 Blood Culture, Received Pending Home Medications Scheduled (Cerave) 1 Cre Cre, 1 DOSE TOP TID APPLY TO ENTIRE BODY (Ensure Clear) 1 Liq Liq, 6 OZ PO TID Calcium Carbonate (Calcium Carbonate) 1,250 Mg/5 Ml Juli, 1,250 MG PO TID Carbamazepine (Tegretol) 100 Mg/5 Ml Susp, 300 MG PO BID TAKES MORNING AND 1600 Carbamazepine (Tegretol) 100 Mg/5 Ml Susp, 200 MG PO QHS Cetirizine HCl (Cetirizine HCl) 10 Mg Tab, 10 MG PO QHS CRUSH Cholecalciferol (Vitamin D3) 5,000 Unit Cap, 5,000 UNIT PO DAILY CRUSH Multivitamins Liquid *[facility] STOCKED* (Multi-Delyn Liquid *[facility] STOCKED*) 5 Ml Liqd , 30 ML PO DAILY Phenytoin (Dilantin Infatabs) 50 Mg Chew, 150 MG PO QAM CRUSH Phenytoin (Dilantin Infatabs) 50 Mg Chew, 100 MG PO BID CRUSH - TAKES AT NOON AND 1600 Simethicone (Gas Relief) 80 Mg Chw, 160 MG PO TID CRUSH Triglycerides (Mct Oil) 946 Ml Oil, 15 ML PO TID Allergies Coded Allergies: Cephalosporins (Verified Allergy, Intermediate, KEFLEX AND CECLOR-HIVES AND SWELLING(non-specific), 02/02/14) Replaces KEFUROX 1.5 G REPORTED HIVES AND SWELLING TO KEFLEX AND CECLOR SWELLING TO PCN Metronidazole (Verified Allergy, Intermediate, RASH/HIVES, 11/17/12) Penicillins (Verified Allergy, Intermediate, SWELLING (non-specific), 02/02) SWELLING: TOLERATES INVANZ Lactose (Verified Allergy, Mild, 11/17/12) Bee Venom (Verified Allergy, Unknown, 11/17/12) Cefaclor (Verified Allergy, Unknown, 12/15/16) Gentamicin (Verified Allergy, Unknown, 11/17/12) Grass (Verified Allergy, Unknown, 06/30/11) Molds & Smuts (Verified Allergy, Unknown, 11/17/12) POLLEN (Verified Allergy, Unknown, 06/30/11) Quinolones (Verified Allergy, Unknown, CIPRO, 11/17/12) Erythromycin (Verified Adverse Reaction, Unknown, 11/17/12) Carole Esparza May 11, 2017 13:42
[2017-05-11] MEDS ORDERED: MCTOIL PO (13:57)
[2017-05-11] MEDS ORDERED: CALC1250 PO (13:57)
[2017-05-11] MEDS ORDERED: CERACRE TOP (13:57)
[2017-05-11] MEDS ORDERED: ENSU-12 PO (13:57)
[2017-05-11] MEDS ORDERED: LOPERAMIDE 2 MG CAP PO PRN (14:15)
[2017-05-11] MEDS ORDERED: MAG SULF 1GM/100ML (MAG RUN) 1 GM in APPROPRIATE DILUENT 1 EA IV SCH (14:15)
[2017-05-11 14:16] LABS: OSMOLALITY SERUM 274 MOSM/KG (275-295)
[2017-05-11 14:24] LABS: CARBAMAZEPINE (TEGRETOL) LEVEL 11.2 UG/ML (4.0-10.0); URIC ACID 8.3 MG/DL (3.5-7.2)
[2017-05-11] MEDS ORDERED: KCL 20MEQ IN 100ML SWI (KRUN) 20 MEQ in APPROPRIATE DILUENT 1 EA IV SCH ×4 (14:30→16:00)
[2017-05-11 14:31] LABS: MAGNESIUM LEVEL 2.5 MG/DL (1.8-2.4)
[2017-05-11 15:00] VITALS: BP 99/58
[2017-05-11 15:10] LABS: ERYTHROCYTE SEDIMENTATION RATE 33 mm/hr (0-15)
[2017-05-11] MEDS ORDERED: CARBAMAZEPINE 200 MG/10 ML PO SCH ×3 (16:00→21:00)
[2017-05-11] MEDS ORDERED: PHENYTOIN 50 MG CHEW TABLET PO SCH (16:00)
[2017-05-11] MEDS ORDERED: ISOVUE-300 61% 50ML VIAL (Q9967) As Ordered ONE (16:57)
[2017-05-11] MEDS: KCL 10MEQ IN 100ML SWI (KRUN) 10 MEQ in APPROPRIATE DILUENT 1 EA IV SCH ×10 (18:07→23:30)
--- NOTE | 2017-05-11 18:09 | ECGEPIP ---
Stationary ECG Study [facility] - ED Test Date: 2017-05-11 Pat Name: GERRY GALVAN Department: Room: - Gender: M Top Cager: sandro : [id number] Requested By: Kay Velazquez Order Number: [id number] Reading MD: Arnold Valentino Measurements Intervals [place] Rate: 103 P: 71 FL: 171 QRS: 73 QRSD: 121 T: 71 QT: 341 QTc: 447 Interpretive Statements [employer]ACHY[employer] RBBB SIMILAR TO 12/15/16 Electronically Signed On 05-11-2017 18:08:49 EDT by Arnold Valentino
[2017-05-11] MEDS: PHENYTOIN 50 MG CHEW TABLET PO SCH ×2 (18:18→21:22)
[2017-05-11 18:56] LABS: ANION GAP 13 MEQ/L (8-16); BLOOD UREA NITROGEN 47 MG/DL (7-18); CALCIUM LEVEL 7.7 MG/DL (8.5-10.1); CARBON DIOXIDE LEVEL 15 MEQ/L (21-32); CHLORIDE LEVEL 98 MEQ/L (98-107); CREATININE FOR GFR 1.02 MG/DL (0.70-1.30); GLOMERULAR FILTRATION RATE > 60.0 (>60); GLUCOSE, FASTING 112 MG/DL (70-105); SODIUM LEVEL 126 MEQ/L (136-145)
[2017-05-11 19:00] VITALS: BP 104/53
[2017-05-11 19:11] LABS: POTASSIUM SERUM 2.6 MEQ/L (3.5-5.1)
[2017-05-11 19:15] LABS: OSMOLALITY URINE 372 MOSM/KG (500-800)
[2017-05-11 20:00] VITALS: BP 95/57
[2017-05-11] MEDS: D5 IV SCH ×2 (20:59)
[2017-05-11] MEDS: SODIUM BICARBONATE IV SCH ×2 (20:59)
[2017-05-11] MEDS: KCL IV SCH ×2 (20:59)
[2017-05-11 21:00] VITALS: BP 94/51
[2017-05-11] MEDS: [UNRECOGNIZED DRUG - OTHER] PO SCH (21:00)
[2017-05-11] MEDS ORDERED: OCTREOTIDE ACETATE 100 MCG/ML VIAL (J2354) SC SCH (21:00)
[2017-05-11] MEDS: OCTREOTIDE ACETATE 100 MCG/ML VIAL (J2354) SC SCH (21:21)
[2017-05-11] MEDS: CETIRIZINE (ZyrTEC) 10 MG TAB PO SCH (21:22)
[2017-05-11 22:00] VITALS: BP 107/59
[2017-05-11 22:19] LABS: ANION GAP 10 MEQ/L (8-16); BLOOD UREA NITROGEN 41 MG/DL (7-18); CALCIUM LEVEL 7.6 MG/DL (8.5-10.1); CARBON DIOXIDE LEVEL 17 MEQ/L (21-32); CHLORIDE LEVEL 100 MEQ/L (98-107); GLOMERULAR FILTRATION RATE > 60.0 (>60); GLUCOSE, FASTING 128 MG/DL (70-105); SODIUM LEVEL 127 MEQ/L (136-145)
[2017-05-11 22:31] LABS: POTASSIUM SERUM 3.3 MEQ/L (3.5-5.1)
[2017-05-11 23:00] VITALS: BP 92/51
[2017-05-12] VITALS (29 sets, daily range): BP systolic 76–118; BP diastolic 41–64
[2017-05-12] MEDS: KCL 10MEQ IN 100ML SWI (KRUN) 10 MEQ in APPROPRIATE DILUENT 1 EA IV SCH ×2 (00:33)
[2017-05-12 02:20] LABS: ANION GAP 10 MEQ/L (8-16); BLOOD UREA NITROGEN 35 MG/DL (7-18); CALCIUM LEVEL 8.1 MG/DL (8.5-10.1); CARBON DIOXIDE LEVEL 19 MEQ/L (21-32); CHLORIDE LEVEL 104 MEQ/L (98-107); GLOMERULAR FILTRATION RATE > 60.0 (>60); GLUCOSE, FASTING 166 MG/DL (70-105); SODIUM LEVEL 133 MEQ/L (136-145)
[2017-05-12] MEDS: D5 IV SCH ×2 (04:28)
[2017-05-12] MEDS: KCL IV SCH ×2 (04:28)
[2017-05-12] MEDS: SODIUM BICARBONATE IV SCH ×2 (04:28)
[2017-05-12 05:13] LABS: BASO % 0.1 % (0.0-1.0); EOS # 0.1 10^3/uL (0.0-0.50); EOS % 0.6 % (0.0-3.0); IMMATURE GRANULOCYTE % 1.7 % (0-0); LYMPH % 18.3 % (24.0-44.0); MEAN CORPUSCULAR HEMOGLOBIN 32.3 pg (27.0-33.0); MEAN CORPUSCULAR VOLUME 83.1 fl (80.0-96.0); MONO # 1.1 10^3/uL (0.0-0.8); MONO % 9.8 % (0.0-5.0); NEUTROPHILS # 7.5 10^3/uL (1.8-7.7); NEUTROPHILS % 69.5 % (36.0-66.0); RED CELL DISTRIBUTION WIDTH 11.6 % (11.5-14.5); WHITE BLOOD COUNT 10.8 10^3/uL (4.0-10.0)
[2017-05-12 05:39] LABS: ANION GAP 9 MEQ/L (8-16); BLOOD UREA NITROGEN 30 MG/DL (7-18); CARBAMAZEPINE (TEGRETOL) LEVEL 2.2 UG/ML (4.0-10.0); CARBON DIOXIDE LEVEL 22 MEQ/L (21-32); CHLORIDE LEVEL 104 MEQ/L (98-107); CREATININE FOR GFR 0.77 MG/DL (0.70-1.30); GLOMERULAR FILTRATION RATE > 60.0 (>60); GLUCOSE, FASTING 166 MG/DL (70-105); POTASSIUM SERUM 3.7 MEQ/L (3.5-5.1); SODIUM LEVEL 135 MEQ/L (136-145)
[2017-05-12 06:01] LABS: MEAN CORPUSCULAR HGB CONC 38.8 g/dl (32.0-36.5); PLATELET COUNT, AUTOMATED 382 10^3/uL (150-450)
--- NOTE | 2017-05-12 06:29 | CR ---
DATE OF CONSULTATION: 05/11/2017 REFERRING PHYSICIAN: Kami Weaver MD. REASON FOR CONSULTATION: Hyponatremia and acute renal failure. HISTORY OF PRESENT ILLNESS: Mr. Ott is a 36-year-old male with known history of anoxic brain injury in childhood, history of seizure disorder, history of Crohn's disease, status post ileostomy, history of prior episode of acute renal failure and hyponatremia in December this year. He was brought to emergency room from the [facility] ([facility]) where he is a resident due to generalized weakness and decreased oral intake. The patient also reported to have large liquid output through his ileostomy. The patient was found to have a sodium level of 120 on admission and potassium level 2.7. His baseline creatinine is 0.45-0.5 mg/dL, and today his creatinine was 1.35. Nephrology consultation was requested by Dr. Weaver. I came to see the patient earlier in the intensive care unit (ICU); however, at that time he was in radiology getting peripherally inserted central catheter (PICC) line placed. I am waiting for about 45 minutes. However, the patient did not return so I came back in late in the evening and I have seen him in intensive care unit. PAST MEDICAL HISTORY: 1. Mental retardation secondary to anoxic brain injury. 2. Seizure disorder. 3. Crohn's disease/ulcerative colitis, status post ileostomy and small bowel resection. 4. History of high output ostomy per last several days. 5. History of nephrolithiasis in the past. 6. History of osteoporosis. 7. History of gastroesophageal reflux disease. PAST SURGICAL HISTORY: Is significant for multiple abdominal surgeries including a colectomy, ileostomy , small bowel resection, repair of a parastomal hernia and a ileostomy dilatation. PERSONAL AND SOCIAL HISTORY The patient is in the [facility] resident. There is no history of any alcohol or tobacco use. A [facility] staff member is present who reports that the patient does eat pureed food normally; however, for last few days his oral intake has been poor. He was very weak and unable to even stand up. FAMILY HISTORY: Noncontributory. REVIEW OF SYSTEMS: The patient is unable to provide any information by himself. The [facility] staff member reports no fever or chills. Decreased oral intake for last few days and high output through his ileostomy is reported. He has no urine output. He wears a diaper usually. The patient's mother refused a Bear catheter placement earlier in the emergency room. He had anoxic brain injury in childhood. No details are available and [facility] staff does not know the etiology of anoxic brain injury. PHYSICAL EXAMINATION: Thin-build chronically ill looking patient lying in the bed who is non communicative. Temperature is 98.6 degrees Fahrenheit, heart rate 110 per minute and respiratory rate 18 per minute. Blood pressure 95/57 mmHg and oxygen saturation 100%. Head is atraumatic. Neck is supple and there is no neck vein distension. The patient is not very cooperative for oral exam. Pupils are equal and sclerae are anicteric. Heart sounds are tachycardiac and lungs with poor inspiratory effort but no wheezing or rales. Abdomen is soft and ileostomy bag is draining greenish liquid stool. Extremities have no cyanosis or clubbing. There is some trace of edema on his lower extremities. Neurologically the patient is awake but noncommunicative. He is not able to follow command at this point. LABORATORY DATA: Sodium 120, potassium 2.8, chloride 87, CO2 of 19, BUN 59 and creatinine 1.35 on admission. Serum osmolality was 274 and lactic acid 1.4. Uric acid level 8.3 and magnesium 2.5. Serum albumin 4.5 and total protein 8.7. A repeat chemistry at 06:16 p.m. showed sodium 126 and potassium 2.6. CO2 15, chloride 98, BUN 47 and creatinine 1.02. Glucose 112 and calcium 7.7. Blood gas showed a pH of 7.34, pCO2 29.5, pO2 42 on a venous blood gas and bicarb 17. Urinalysis showed no protein or blood. Urine sodium is less than 10 and creatinine 6.7. Urine osmolarity is 372. Dilantin level is 10.3 and carbamazepine level 11.2. IMAGING: Chest x-ray done in the emergency room negative for any acute cardiopulmonary problems. ASSESSMENT: 1. Hyponatremia: Most likely this is related to gastrointestinal (GI) losses and poor oral intake. The patient has received a couple of liters of normal saline in the emergency room and since admission. He is currently receiving normal saline. His sodium has corrected to 126 in last seven hours. I will stop the normal saline and change intravenous (IV) fluid to sodium bicarbonate drip @ 100 ml/h in view of metabolic acidosis. He is also receiving potassium runs at this point due to severe hypokalemia which is running in water. His electrolytes will be repeated again in few hours. 2. Hypokalemia: This is related to GI losses and poor oral intake. The patient has received potassium (K) runs. Potassium level will be checked again. I will add 20 mEq potassium chloride in the IV fluid in addition to the K runs that he is receiving. 3. Metabolic acidosis: The patient has worsening metabolic acidosis due to ongoing GI losses. He also had acute renal failure which seems to be improving. Will add sodium bicarbonate 100 mEq in the IV fluid of D5 and 0.2 normal saline. The bicarb drip is being ordered at the rate of 100 ml/h. This will help to improve his acidosis while we will not increase his sodium too high. Electrolytes will continue to be monitored. 4. Acute renal failure: The patient seems to be dehydrated due to GI losses and poor oral intake. IV fluid hydration as stated above is going to be our main goal. We will continue to monitor his kidney function and electrolytes every few hours. I thank you for involving me in the care of Mr. Ott. I have discussed the plan of care with nursing staff on bedside. Dictation dictated by Dr. Sameera SANTAMARIA
[2017-05-12] MEDS: KCL 20MEQ IN D5W 1000ML 1,000 ML IV SCH (08:14)
[2017-05-12] MEDS ORDERED: PHENYTOIN 50 MG CHEW TABLET PO SCH (09:00)
[2017-05-12] MEDS: [UNRECOGNIZED DRUG - OTHER] PO SCH ×5 (09:00→20:18)
[2017-05-12] MEDS: OCTREOTIDE ACETATE 100 MCG/ML VIAL (J2354) SC SCH ×2 (09:28→20:18)
[2017-05-12] MEDS: PHENYTOIN 50 MG CHEW TABLET PO SCH ×3 (09:28→20:19)
--- NOTE | 2017-05-12 09:37 | IPNPDOC ---
Subjective Date Seen The patient was seen on 05/12/17. Subjective Chief Complaint/HPI The patient is a 36-year-old male admitted with a reason for visit of Hyponatremia. Events since last encounter Per [facility] staff, Chuck was fairly active and awake most of the night, but this morning he is sleeping and not as alert as his baseline. Constitutional: Denies: Chills, Fever Pulmonary: Denies: Dyspnea, Cough Cardiovascular: Denies: Chest Pain, Palpitations Gastrointestinal: Denies: Nausea, Vomiting, Abdominal Pain, Diarrhea, Constipation Objective Physical Examination General Exam: Positive: Other (sleeping soundly - arousable with loud verbal and taryn tactile stimuli but non-verbal and falls back to sleep easily) Chest Exam: Negative: Clear to auscultation, Normal air movement Heart Exam: Positive: Rate Normal Abdomen Exam: Positive: Normal bowel sounds, Soft, Negative: Tenderness Extremity Exam: Positive: Edema (trace edmea BL) Assessment /Plan Problems (1) Seizure disorder Status: Chronic Response to Treatment: Stable Problem Text: HD phenytoin 150/100/100, carba 300/300/200 05/12 pheny/carba level 5.6/2.2 (baseline ~05/24); therefore, restarted carba at 200 TID 05/11 carba 11.2; therefore, was held (2) Hypotension Status: Acute Problem Text: BP in 70s overnight requiring IVF rate to be increased. BP remains low in 70s despite 5 liters IVF. Hypovolemia unlikely to be the etiology at this point. Hgb has dropped to 8. We will transfuse 2 units PRBCs Initiate IV Abx for presumed sepsis with leukocytosis and hypotension. (3) Sepsis Status: Acute Problem Text: Leukocytosis with hypotension Repeat Lactic Acid level. 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, but minimal since c abdominal cramping, therefore, reduce octreo (4) Hyponatremia Status: Acute Response to Treatment: Improving Problem Text: Na+ improved with IVF - IVF adjusted due to rapid correction (5) Anemia Status: Acute Problem Text: 05/12 Hgb dropped to 8 - likely dilutional c GI blood loss- transfuse 2 units and Check [place] baseline hgb 12 (6) Mental retardation Status: Chronic (7) Short gut syndrome Status: Chronic Problem Text: 05/11 restarted octreotide 100 SC BID Plan/VTE VTE Prophylaxis Ordered?: Yes (SCDs) VS, I&O, 24H, Fishbone Vital Signs/I&O Vital Signs Date Time Temp Pulse Resp B/P (MAP) Pulse Ox O2 Delivery O2 Flow Rate FiO2 05/12/17 07:35 98.3 101 24 76/46 (56) 100 Room Air Laboratory Data 24H LABS Laboratory Tests 2 05/11/17 11:08: White Blood Count 13.8H, Red Blood Count 3.70L, Hemoglobin 11.7L, Hematocrit 30.2L, Mean Corpuscular Volume 81.6, Mean Corpuscular Hemoglobin 31.6, Mean Corpuscular Hemoglobin Concent 38.7H, Red Cell Distribution Width 11.5, Platelet Count 532H, Neutrophils (%) (Auto) 74.2H, Lymphocytes (%) (Auto) 13.3L , Monocytes (%) (Auto) 9.7H, Eosinophils (%) (Auto) 0.3, Basophils (%) (Auto) 0.2, Neutrophils # (Auto) 10.2H, Lymphocytes # (Auto) 1.8, Monocytes # (Auto) 1.3H, Eosinophils # (Auto) 0.0, Basophils # (Auto) 0.0, Immature Granulocyte # ( Auto) 0.3H, Nucleated Red Blood Cells % (auto) 0.0, Erythrocyte Sedimentation Rate 33H, Prothrombin Time 13.8, Prothromb Time International Ratio 1.05, Activated Partial Thromboplast Time 26.9, Blood Gas Bicarbonate Standard 17.1, Venous Blood pH 7.343, Venous Blood Partial Pressure CO2 29.5L, Venous Blood Partial Pressure O2 42.0, Venous Blood Total Carbon Dioxide 16.6L, Venous Blood HCO3 15.7L, Venous Blood Oxygen Saturation 76.3, Venous Blood Base Excess -8.8L , Anion Gap 14, Glomerular Filtration Rate > 60.0, Osmolality 274L, Lactic Acid Level 1.4, Uric Acid 8.3H, Calcium Level 9.1, Magnesium Level 2.5H, Aspartate Amino Transf (AST/SGOT) 25, Alanine Aminotransferase (ALT/SGPT) 35, Alkaline Phosphatase 101, Total Bilirubin 0.3, Direct Bilirubin 0.1, Total Creatine Kinase 63, Creatine Kinase MB 1.9, Creatine Kinase MB Relative Index 3.01, Troponin I < 0.02, C-Reactive Protein, Quantitative < 0.30, Total Protein 8.7H, Albumin 4.5, Albumin/Globulin Ratio 1.07, Amylase Level 81, Phenytoin (Dilantin ) Level 10.3, Carbamazepine (Tegretol) Level 11.2H 05/11/17 17:48: Urine Appearance HAZY, Urine Color YELLOW, Urine pH 6.0, Urine Specific [place] 1.011, Urine Protein NEGATIVE, Urine Glucose (UA) NEGATIVE, Urine Ketones NEGATIVE, Urine Urobilinogen 0.2, Urine Bilirubin NEGATIVE, Urine Leukocyte Esterase 2+H, Urine Blood NEGATIVE, Urine Nitrite NEGATIVE, Urine WBC (Auto) 7H , Urine RBC (Auto) 0, Urine Hyaline Casts (Auto) 0, Urine Bacteria (Auto) NEGATIVE, Urine Squamous Epithelial Cells 0, Urine Sperm (Auto) , Urine Random Osmolality 372L, Urine Random Creatinine 66.7, Urine Random Sodium < 10 05/11/17 18:16: Anion Gap 13, Glomerular Filtration Rate > 60.0, Calcium Level 7.7#L, Blood Urea Nitrogen 47H, Creatinine 1.02, Sodium Level 126L, Potassium Level 2.6*L, Chloride Level 98, Carbon Dioxide Level 15L 05/11/17 21:47: Anion Gap 10, Glomerular Filtration Rate > 60.0, Calcium Level 7.6L, Blood Urea Nitrogen 41H, Creatinine 0.90, Sodium Level 127L, Potassium Level 3.3#L, Chloride Level 100, Carbon Dioxide Level 17L 05/12/17 01:46: Anion Gap 10, Glomerular Filtration Rate > 60.0, Blood Urea Nitrogen 35H, Creatinine 0.90, Sodium Level 133L, Potassium Level 4.0#, Chloride Level 104, Carbon Dioxide Level 19L, Calcium Level 8.1L 05/12/17 05:00: Anion Gap 9, Glomerular Filtration Rate > 60.0, Blood Urea Nitrogen 30H, Creatinine 0.77, Sodium Level 135L, Potassium Level 3.7, Chloride Level 104, Carbon Dioxide Level 22, Calcium Level 8.0L, White Blood Count 10.8H, Red Blood Count 2.48L, Hemoglobin 8.0#L, Hematocrit 20.6L, Mean Corpuscular Volume 83.1, Mean Corpuscular Hemoglobin 32.3, Mean Corpuscular Hemoglobin Concent 38.8H, Red Cell Distribution Width 11.6, Platelet Count 382#, Neutrophils (%) (Auto) 69.5H, Lymphocytes (%) (Auto) 18.3L, Monocytes (%) (Auto) 9.8H, Eosinophils (%) (Auto) 0.6, Basophils (%) (Auto) 0.1, Neutrophils # (Auto) 7.5, Lymphocytes # ( Auto) 2.0, Monocytes # (Auto) 1.1H, Eosinophils # (Auto) 0.1, Basophils # (Auto ) 0.0, Immature Granulocyte # (Auto) 0.2H, Nucleated Red Blood Cells % (auto) 0.0, Phenytoin (Dilantin) Level 5.6L, Carbamazepine (Tegretol) Level 2.2L CBC/BMP Laboratory Tests 05/11/17 11:08 Red Blood Count 3.70 L, Mean Corpuscular Volume 81.6, Mean Corpuscular Hemoglobin 31.6, Mean Corpuscular Hemoglobin Concent 38.7 H, Red Cell Distribution Width 11.5, Neutrophils (%) (Auto) 74.2 H, Lymphocytes (%) (Auto) 13.3 L, Monocytes (%) (Auto) 9.7 H, Eosinophils (%) (Auto) 0.3, Basophils (%) ( Auto) 0.2, Neutrophils # (Auto) 10.2 H, Lymphocytes # (Auto) 1.8, Monocytes # ( Auto) 1.3 H, Eosinophils # (Auto) 0.0, Basophils # (Auto) 0.0 05/11/17 18:16 Calcium Level 7.7 #L 05/11/17 21:47 Calcium Level 7.6 L 05/12/17 01:46 Calcium Level 8.1 L 05/12/17 05:00 Red Blood Count 2.48 L, Mean Corpuscular Volume 83.1, Mean Corpuscular Hemoglobin 32.3, Mean Corpuscular Hemoglobin Concent 38.8 H, Red Cell Distribution Width 11.6, Neutrophils (%) (Auto) 69.5 H, Lymphocytes (%) (Auto) 18.3 L, Monocytes (%) (Auto) 9.8 H, Eosinophils (%) (Auto) 0.6, Basophils (%) ( Auto) 0.1, Neutrophils # (Auto) 7.5, Lymphocytes # (Auto) 2.0, Monocytes # (Auto ) 1.1 H, Eosinophils # (Auto) 0.1, Basophils # (Auto) 0.0, Calcium Level 8.0 L Microbiology Microbiology 05/11/17 Blood Culture, Received Pending 05/11/17 Blood Culture, Received Pending 05/11/17 Gastrointestinal Tract Panel (PCR) - Final, Complete 05/11/17 MRSA Screen, Received Pending 05/11/17 Urine Culture, Received Pending ADRIANA YANES PA-C May 12, 2017 09:37 Cedrick Myers M.D. May 12, 2017 17:16
[2017-05-12] MEDS ORDERED: SODIUM BICARBONATE 8.4% INJ 50 ML SYRINGE As Ordered ONE (09:49)
[2017-05-12] MEDS ORDERED: SODIUM BICARBONATE 8.4% INJ 50 ML SYRINGE XX ONE (10:00)
[2017-05-12] MEDS ORDERED: FLUMAZENIL 0.5 MG/5 ML VIAL As Ordered ONE (10:07)
[2017-05-12] MEDS ORDERED: MIDAZOLAM INJ 2 MG/2 ML VIAL (J2250) As Ordered ONE (10:07)
[2017-05-12] MEDS ORDERED: MIDAZOLAM INJ 2 MG/2 ML VIAL (J2250) IV ONE (10:11)
[2017-05-12 11:01] LABS: ANION GAP 5 MEQ/L (8-16); BLOOD UREA NITROGEN 22 MG/DL (7-18); CALCIUM LEVEL 8.2 MG/DL (8.5-10.1); CARBON DIOXIDE LEVEL 28 MEQ/L (21-32); CHLORIDE LEVEL 104 MEQ/L (98-107); CREATININE FOR GFR 0.69 MG/DL (0.70-1.30); GLOMERULAR FILTRATION RATE > 60.0 (>60); GLUCOSE, FASTING 93 MG/DL (70-105); POTASSIUM SERUM 3.7 MEQ/L (3.5-5.1); SODIUM LEVEL 137 MEQ/L (136-145)
[2017-05-12] MEDS: MEROPENEM INJ 1 GM in D5W MINI-BAG PLUS 100 ML IV SCH ×2 (11:02→18:08)
--- NOTE | 2017-05-12 11:05 | REP ---
PORTABLE CHEST: AP portable view of the chest is performed. The study is somewhat due to patient motion with rotation towards the right. There is placement of a left subclavian central venous catheter with the tip in the superior vena cava. No pneumothorax is seen. No gross infiltrate is seen. The heart appears normal in size. Signed by Saulo Naidu MD 05/12/2017 05:21 P
[2017-05-12] MEDS: ONDANSETRON 4MG/2ML VIAL (J2405) IV PRN ×2 (13:29→20:19)
[2017-05-12 15:34] LABS: ANION GAP 7 MEQ/L (8-16); BLOOD UREA NITROGEN 18 MG/DL (7-18); CALCIUM LEVEL 8.4 MG/DL (8.5-10.1); CARBON DIOXIDE LEVEL 25 MEQ/L (21-32); CHLORIDE LEVEL 104 MEQ/L (98-107); CREATININE FOR GFR 0.64 MG/DL (0.70-1.30); GLOMERULAR FILTRATION RATE > 60.0 (>60); GLUCOSE, FASTING 118 MG/DL (70-105); POTASSIUM SERUM 3.7 MEQ/L (3.5-5.1); SODIUM LEVEL 136 MEQ/L (136-145)
--- NOTE | 2017-05-12 18:38 | REP ---
CT of the abdomen and pelvis without IV or bowel contrast: Comparison is 12/24/2016. The visualized lung brooks are unremarkable. The unenhanced hepatic parenchyma is homogeneous. There is gallbladder distension measuring up to 3.8 cm transverse diameter. There is no gallbladder wall thickening or pericholecystic fluid. The unenhanced pancreas and spleen are unremarkable. There is no ascites. There are no inflammatory changes in the mesentery. There is no bowel distension or obstruction. There is no pneumoperitoneum or ascites. The patient has a history of colectomy. There are numerous surgical arben in the abdomen. There is a circumferential staple line in the rectosigmoid colon. There is a fecal residue in the rectosigmoid colon, however, I do not identify anastomosis of the rectosigmoid colon to other bowel loops. There is an ostomy in the anterior abdominal wall to the left of midline as previously. There is no bowel distension or obstruction. No mesenteric adenopathy. Pelvis: There is no free fluid. There is a Bear catheter in the bladder. There is no adenopathy or ascites. There is air in the urinary bladder, likely secondary to catheterization. Impression: No ascites or inflammatory changes. No bowel distension or obstruction. Fecal residue in the rectosigmoid colon. Circumferential surgical staple line in the rectosigmoid colon. No focal fluid collection to suggest abscess. No inflammatory changes or adenopathy in the mesentery. Anterior abdominal wall ostomy, unchanged. Signed by Saulo Kemp MD 05/12/2017 06:30 P
[2017-05-12 18:52] LABS: ANION GAP 7 MEQ/L (8-16); BLOOD UREA NITROGEN 16 MG/DL (7-18); CALCIUM LEVEL 8.3 MG/DL (8.5-10.1); CARBON DIOXIDE LEVEL 25 MEQ/L (21-32); CHLORIDE LEVEL 105 MEQ/L (98-107); CREATININE FOR GFR 0.67 MG/DL (0.70-1.30); GLOMERULAR FILTRATION RATE > 60.0 (>60); GLUCOSE, FASTING 115 MG/DL (70-105); POTASSIUM SERUM 3.8 MEQ/L (3.5-5.1); SODIUM LEVEL 137 MEQ/L (136-145)
--- NOTE | 2017-05-12 18:58 | IPN ---
DATE: 05/12/2017 Mr. Ott is seen this morning on his bedside. Unfortunately, he had an unsuccessful attempt at peripherally inserted central catheter (PICC) line placement yesterday. I saw him last evening and we started with IV sodium bicarbonate drip. He was hypotensive through the night and, at some point, nursing staff called his primary physician who increased the IV fluid to 250 mL per hour due to persistent hypotension. Our intention was to give him IV sodium bicarbonate drip at a low rate in order to correct his sodium level at a slower rate. In any event, this morning, his sodium level went up to 135 and I had immediately changed his IV fluid to D5W. He underwent a central line placement with a triple-lumen catheter by Dr. Diaz just this morning. He remains nothing by mouth and incontinent of urine, so accurate output is not obtainable. Yesterday, his mother had declined a Bear catheter. However, this morning, she did consent for all necessary interventions as the patient also had an unsuccessful attempt at PICC line placement and underwent a central line placement this morning. PHYSICAL EXAMINATION: The patient is noncommunicative. He is restless in the bed. Temperature is 98.3 degrees Fahrenheit, heart rate 105 per minute and respiratory rate 22 per minute. Blood pressure has been in the 80s over 50s. Oxygen saturation is 100%. Intake and output records are probably incomplete. He received at least about four liters of IV fluids since arrival to the emergency room. As stated above, urine output is not being recorded as the patient has been incontinent. His neck veins are not any significantly abnormally distended. His heart sounds are tachycardiac. Lungs have bilateral air entry with only occasional basilar rales. Abdomen has ileostomy bag which is almost empty. Bowel sounds are hypoactive. Extremities have no cyanosis or clubbing. LABORATORY DATA: Today's laboratories showed a sodium level of 127 last night and 133 at 01:46 a.m. His sodium is up to 135 this morning and potassium is 3.7. BUN is 30 and creatinine 0.77. WBC count is 10.8, hemoglobin 8.0 and hematocrit 20.6. PROBLEMS: 1. Severe hyponatremia. Sodium level has improved, unfortunately somewhat rapidly due to need for high volume of IV fluid as the patient was quite hypotensive through the night. We are going to start him on D5W which has already been ordered and we will continue to monitor his electrolytes. Our goal will be to bring his sodium level down to close to about 130. 2. Hypokalemia. Potassium level has improved to normal range. We will continue with potassium supplement in the IV fluid. 3. Acute renal failure. Kidney function has improved, though not completely back to baseline. However, it has improved significantly. We will continue IV fluid hydration until his oral intake is adequate. 4. Anemia. The patient's anemia has worsened. This is related to hemodilution. He was probably quite dehydrated on admission. I have discussed with primary care team and have recommended to transfuse two units of packed red blood cells (RBCs). 5. Persistent hypotension. The patient has been quite hypotensive despite large volume of IV fluid given. I am concerned about sepsis. Blood cultures are negative so far. A gastrointestinal (GI) panel has also been reported negative. Broad-spectrum antibiotics are recommended due to persistent hypotension.
[2017-05-12] MEDS: carBAMazepine 200 MG TAB PO SCH (20:19)
[2017-05-12] MEDS: CETIRIZINE (ZyrTEC) 10 MG TAB PO SCH (20:19)
[2017-05-12 22:28] LABS: ANION GAP 6 MEQ/L (8-16); BLOOD UREA NITROGEN 13 MG/DL (7-18); CALCIUM LEVEL 8.1 MG/DL (8.5-10.1); CARBON DIOXIDE LEVEL 25 MEQ/L (21-32); CHLORIDE LEVEL 105 MEQ/L (98-107); CREATININE FOR GFR 0.69 MG/DL (0.70-1.30); GLOMERULAR FILTRATION RATE > 60.0 (>60); GLUCOSE, FASTING 153 MG/DL (70-105); POTASSIUM SERUM 3.7 MEQ/L (3.5-5.1); SODIUM LEVEL 136 MEQ/L (136-145)
[2017-05-13] VITALS (8 sets, daily range): BP systolic 84–104; BP diastolic 41–64
[2017-05-13] MEDS: KCL 20MEQ IN D5W 1000ML 1,000 ML IV SCH
[2017-05-13] MEDS: MEROPENEM INJ 1 GM in D5W MINI-BAG PLUS 100 ML IV SCH ×3 (01:41→17:04)
[2017-05-13 02:29] LABS: ANION GAP 7 MEQ/L (8-16); BLOOD UREA NITROGEN 11 MG/DL (7-18); CALCIUM LEVEL 8.1 MG/DL (8.5-10.1); CARBON DIOXIDE LEVEL 26 MEQ/L (21-32); CHLORIDE LEVEL 106 MEQ/L (98-107); CREATININE FOR GFR 0.64 MG/DL (0.70-1.30); GLOMERULAR FILTRATION RATE > 60.0 (>60); GLUCOSE, FASTING 114 MG/DL (70-105); POTASSIUM SERUM 3.7 MEQ/L (3.5-5.1); SODIUM LEVEL 139 MEQ/L (136-145)
[2017-05-13 06:01] LABS: BASO % 0.1 % (0.0-1.0); EOS # 0.2 10^3/uL (0.0-0.50); EOS % 1.1 % (0.0-3.0); IMMATURE GRANULOCYTE % 0.9 % (0-0); LYMPH # 1.7 10^3/uL (1.5-4.5); LYMPH % 11.9 % (24.0-44.0); MEAN CORPUSCULAR HEMOGLOBIN 31.2 pg (27.0-33.0); MEAN CORPUSCULAR VOLUME 84.4 fl (80.0-96.0); NEUTROPHILS # 10.6 10^3/uL (1.8-7.7); PLATELET COUNT, AUTOMATED 331 10^3/uL (150-450); RED CELL DISTRIBUTION WIDTH 12.7 % (11.5-14.5); WHITE BLOOD COUNT 14.2 10^3/uL (4.0-10.0)
[2017-05-13 06:06] LABS: MEAN CORPUSCULAR HGB CONC 36.7 g/dl (32.0-36.5); MONO # 1.6 10^3/uL (0.0-0.8)
[2017-05-13 06:31] LABS: ALBUMIN 3.2 GM/DL (3.2-5.2); ALBUMIN/GLOBULIN RATIO 1.14 (1.00-1.93); ALKALINE PHOSPHATASE 75 U/L (45-117); ALT/SGPT 33 U/L (12-78); ANION GAP 6 MEQ/L (8-16); AST/SGOT 32 U/L (15-37); BILIRUBIN,TOTAL 0.4 MG/DL (0.2-1.0); BLOOD UREA NITROGEN 10 MG/DL (7-18); CALCIUM LEVEL 7.9 MG/DL (8.5-10.1); CARBON DIOXIDE LEVEL 26 MEQ/L (21-32); CHLORIDE LEVEL 104 MEQ/L (98-107); CREATININE FOR GFR 0.59 MG/DL (0.70-1.30); GLOMERULAR FILTRATION RATE > 60.0 (>60); GLUCOSE, FASTING 110 MG/DL (70-105); POTASSIUM SERUM 3.7 MEQ/L (3.5-5.1); SODIUM LEVEL 136 MEQ/L (136-145)
--- NOTE | 2017-05-13 07:20 | RO ---
DATE OF PROCEDURE: 05/12/2017 PREOPERATIVE DIAGNOSIS: Hypotension and insufficient venous access. POSTOPERATIVE DIAGNOSIS: Hypotension and insufficient venous access. PROCEDURE PERFORMED: Left subclavian central venous catheter line placement. SURGEON: Dr. Kareem Diaz GAMBLING SUPERVISOR: Too Ewing MS IV DESCRIPTION OF PROCEDURE: The patient was seen and the procedure explained to the patient's mother who is his proxy. All of the potential complications were reviewed including but not limited to bleeding, infection, medication reaction and lung collapse. An informed consent form was completed. The patient was placed in supine position due to his inability to follow commands, a low dose of Versed was administered. He became mildly somnolent. His vitals were monitored regularly. His skin overlying the left subclavian vein was prepped with ChloraPrep draped in sterile fashion. A 25 gauge needle was used to raise a skin wheal of 1% lidocaine buffered with bicarbonate. Thereafter a 17-gauge introducer needle was placed in through the skin and the left subclavian vein. Free return of venous blood was obtained. A vascular tip guidewire was advanced. A small incision made adjacent to guidewire and a triple-lumen catheter placed over the guidewire to a distance of 18 cm. The wire was removed. The catheter was flushed with saline, sewn in place with #3-0 silk suture and a sterile dressing was applied. Postprocedure chest x-ray confirms adequate placement. There were no apparent complications. The patient is left in unchanged condition in the intensive care unit.
[2017-05-13] MEDS: OCTREOTIDE ACETATE 100 MCG/ML VIAL (J2354) SC SCH ×2 (09:39→21:29)
[2017-05-13] MEDS: [UNRECOGNIZED DRUG - OTHER] PO SCH ×3 (09:40→21:30)
[2017-05-13] MEDS: PHENYTOIN 50 MG CHEW TABLET PO SCH ×3 (09:40→21:29)
[2017-05-13] MEDS: carBAMazepine 200 MG TAB PO SCH ×3 (09:40→21:28)
[2017-05-13 10:43] LABS: ANION GAP 7 MEQ/L (8-16); BLOOD UREA NITROGEN 7 MG/DL (7-18); CALCIUM LEVEL 8.2 MG/DL (8.5-10.1); CARBON DIOXIDE LEVEL 25 MEQ/L (21-32); CHLORIDE LEVEL 104 MEQ/L (98-107); CREATININE FOR GFR 0.59 MG/DL (0.70-1.30); GLOMERULAR FILTRATION RATE > 60.0 (>60); GLUCOSE, FASTING 122 MG/DL (70-105); POTASSIUM SERUM 3.5 MEQ/L (3.5-5.1); SODIUM LEVEL 136 MEQ/L (136-145)
--- NOTE | 2017-05-13 12:19 | IPNPDOC ---
Subjective Date Seen The patient was seen on 05/13/17. Subjective Chief Complaint/HPI The patient is a 36-year-old male admitted with a reason for visit of Hyponatremia. Events since last encounter much more alert today Constitutional: Denies: Chills, Fever Pulmonary: Denies: Dyspnea, Cough Cardiovascular: Denies: Chest Pain Gastrointestinal: Reports: Diarrhea (Having some high output from ostomy today) , Denies: Nausea, Vomiting, Abdominal Pain, Constipation Objective Physical Examination General Exam: Positive: Alert (eyes open, alert, appears comfortable) Chest Exam: Negative: Clear to auscultation, Normal air movement Heart Exam: Positive: Rate Normal Abdomen Exam: Positive: Normal bowel sounds, Soft, Negative: Tenderness Extremity Exam: Positive: Edema (trace edmea BL) Assessment /Plan Problems (1) Hypotension Status: Acute Problem Text: Bp improved today with transfusion and empiric IV abx (Meropenem ) for possible sepsis and IVF (2) Hyponatremia Status: Acute Response to Treatment: Improving Problem Text: 05/13 Na+ improved with IVF - IVF adjusted due to rapid correction Management per Nephrology (3) Sepsis Status: Acute Problem Text: 05/13 WBC remains elevated. f/U Lactic Acid level yesterday was 2.4. Continue IV abx with Meropenem (He has PCN allergy listed but got 5 days of Meropenem in December without reaction)- CT abd/pelvis without signs of infection Watery BMs for ~1-2D [employer], but minimal since with abdominal cramping, therefore, reduce octreo 05/11 BCX x 2 NG 05/11 UCX neg 05/11 Gi panel negative (4) Hypokalemia Status: Acute Problem Text: Borderline hypokalemia - Per Dr. Brasher -potassium added to IVF (5) Seizure disorder Status: Chronic Response to Treatment: Stable Problem Text: HD phenytoin 150/100/100, carba 300/300/200 05/12 pheny/carba level 5.6/2.2 (baseline ~05/24); therefore, restarted carba at 200 TID 05/11 carba 11.2; therefore, was held (6) Anemia Status: Acute Problem Text: 05/13 Hgb improved s/p 2 units PRBC 05/12. Stool guiac negative 05/12 (7) Mental retardation Status: Chronic (8) Short gut syndrome Status: Chronic Problem Text: 05/12: changed to octreotide 50 SC BID 05/11 restarted octreotide 100 SC BID Plan/VTE VTE Prophylaxis Ordered?: Yes (SCDs) Plan Family Medicine Attending Note: I saw and examined Mr. Ott this morning; I discussed his care with ISRAEL Skinner and I agree with her note as documented. Patient is improved today in terms of electrolytes, H/H, and ability to tolerate a diet. His parents were concerned that he was having some abdominal discomfort this afternoon and asked to restart his routine simethicone before meals. (KES) VS, I&O, 24H, Fishbone Vital Signs/I&O Vital Signs Date Time Temp Pulse Resp B/P (MAP) Pulse Ox O2 Delivery O2 Flow Rate FiO2 05/13/17 07:29 99.1 101 16 88/52 (64) 99 Room Air I&O- Last 24 Hours up to 6 AM 05/14/17 06:00 Intake Total 580 ml Output Total 1025 ml Balance -445 ml Laboratory Data 24H LABS Laboratory Tests 2 05/12/17 14:48: Anion Gap 7L, Glomerular Filtration Rate > 60.0, Lactic Acid Followup at 4 Hours 1.1, Blood Urea Nitrogen 18, Creatinine 0.64L, Sodium Level 136, Potassium Level 3.7, Chloride Level 104, Carbon Dioxide Level 25, Calcium Level 8.4L 05/12/17 18:14: Anion Gap 7L, Glomerular Filtration Rate > 60.0, Blood Urea Nitrogen 16, Creatinine 0.67L, Sodium Level 137, Potassium Level 3.8, Chloride Level 105, Carbon Dioxide Level 25, Calcium Level 8.3L 05/12/17 21:55: Anion Gap 6L, Glomerular Filtration Rate > 60.0, Blood Urea Nitrogen 13, Creatinine 0.69L, Sodium Level 136, Potassium Level 3.7, Chloride Level 105, Carbon Dioxide Level 25, Calcium Level 8.1L 05/13/17 01:51: Anion Gap 7L, Glomerular Filtration Rate > 60.0, Blood Urea Nitrogen 11, Creatinine 0.64L, Sodium Level 139, Potassium Level 3.7, Chloride Level 106, Carbon Dioxide Level 26, Calcium Level 8.1L 05/13/17 05:29: White Blood Count 14.2H, Red Blood Count 3.40L, Hemoglobin 10.6#L, Hematocrit 28.7L, Mean Corpuscular Volume 84.4, Mean Corpuscular Hemoglobin 31.2, Mean Corpuscular Hemoglobin Concent 36.7H, Red Cell Distribution Width 12.7, Platelet Count 331, Neutrophils (%) (Auto) 75.0H, Lymphocytes (%) (Auto) 11.9L, Monocytes (%) (Auto) 11.0H, Eosinophils (%) (Auto) 1.1, Basophils (%) (Auto) 0.1 , Neutrophils # (Auto) 10.6H, Lymphocytes # (Auto) 1.7, Monocytes # (Auto) 1.6H , Eosinophils # (Auto) 0.2, Basophils # (Auto) 0.0, Immature Granulocyte # (Auto ) 0.1H, Nucleated Red Blood Cells % (auto) 0.0, Anion Gap 6L, Glomerular Filtration Rate > 60.0, Blood Urea Nitrogen 10, Creatinine 0.59L, Sodium Level 136, Potassium Level 3.7, Chloride Level 104, Carbon Dioxide Level 26, Calcium Level 7.9L, Aspartate Amino Transf (AST/SGOT) 32, Alanine Aminotransferase (ALT/ SGPT) 33, Alkaline Phosphatase 75, Total Bilirubin 0.4, Total Protein 6.0#L, Albumin 3.2#, Albumin/Globulin Ratio 1.14 05/13/17 10:08: Anion Gap 7L, Glomerular Filtration Rate > 60.0, Blood Urea Nitrogen 7, Creatinine 0.59L, Sodium Level 136, Potassium Level 3.5, Chloride Level 104, Carbon Dioxide Level 25, Calcium Level 8.2L CBC/BMP Laboratory Tests 05/12/17 14:48 Calcium Level 8.4 L 05/12/17 18:14 Calcium Level 8.3 L 05/12/17 21:55 Calcium Level 8.1 L 05/13/17 01:51 Calcium Level 8.1 L 05/13/17 05:29 Red Blood Count 3.40 L, Mean Corpuscular Volume 84.4, Mean Corpuscular Hemoglobin 31.2, Mean Corpuscular Hemoglobin Concent 36.7 H, Red Cell Distribution Width 12.7, Neutrophils (%) (Auto) 75.0 H, Lymphocytes (%) (Auto) 11.9 L, Monocytes (%) (Auto) 11.0 H, Eosinophils (%) (Auto) 1.1, Basophils (%) ( Auto) 0.1, Neutrophils # (Auto) 10.6 H, Lymphocytes # (Auto) 1.7, Monocytes # ( Auto) 1.6 H, Eosinophils # (Auto) 0.2, Basophils # (Auto) 0.0, Calcium Level 7.9 L, Aspartate Amino Transf (AST/SGOT) 32, Alanine Aminotransferase (ALT/SGPT ) 33, Alkaline Phosphatase 75, Total Bilirubin 0.4, Total Protein 6.0 #L, Albumin 3.2 # 05/13/17 10:08 Calcium Level 8.2 L Microbiology Microbiology 05/11/17 Blood Culture - Preliminary, Resulted No Growth after 48 hours. All Specime... 05/11/17 Blood Culture - Preliminary, Resulted No Growth after 48 hours. All Specime... 05/13/17 Stool Occult Blood (COURTNEY) - Final, Complete 05/11/17 Gastrointestinal Tract Panel (PCR) - Final, Complete 05/11/17 MRSA Screen - Final, Complete 05/11/17 Urine Culture - Final, Complete ADRIANA YANES PA-C May 13, 2017 12:19 SILVIA ORDAZ MD May 13, 2017 14:18
[2017-05-13] MEDS ORDERED: SIMETHICONE 80 MG CHEW TAB PO ONE (13:45)
[2017-05-13] MEDS: D5W IV SCH (13:53)
[2017-05-13] MEDS: POTASSIUM CHLORIDE IV SCH (13:53)
--- NOTE | 2017-05-13 15:15 | REP ---
LEFT PICC LINE PLACEMENT: The procedure was performed by Yancy FITZPATRICK, under the direct supervision of Dr Naidu. The procedure along with its risks, benefits and complications were discussed with the patient's healthcare proxy prior to the examination. Informed consent was obtained both verbally and written. The patient was identified in the interventional suite and placed in a supine position. The left arm was marked, prepped and draped in the usual sterile fashion. A procedural time-out was performed to ensure that the correct patient, site and procedure were being performed. Under ultrasound guidance the left basilic vein was punctured. A thin guidewire was introduced. The needle was removed and a break-away sheath was placed. Under fluoroscopic observation via the break-away sheath, a #4.5-Upper Sor[place] single lumen PICC line was attempted to be placed. At this point of the procedure, the patient became very agitated and pulled his arm back and dislodged the catheter. The procedure was terminated at this point. I discussed the procedural outcome with the patient's healthcare proxy and discussed alternate methods of IV placement with them. The patient was discharged back to the floor. IMPRESSION: Unsuccessful left PICC line placement. Fluoroscopy time 0.8 minutes. Reviewed by AMARI Henriquez 05/13/2017 04:34 PEdited and Signed by Saulo Naidu MD 05/13/2017 05:01 P
[2017-05-13] MEDS: SIMETHICONE 80 MG CHEW TAB PO SCH (17:04)
--- NOTE | 2017-05-13 20:46 | IPN ---
DATE: 05/13/2017 Mr. Ott is seen this morning on his bedside in intensive care unit. 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 [facility] staff is present on the bedside. Nursing staff reports restlessness and minimal sleep through the night. He continues to have greenish liquid through his ileostomy. Bear catheter is draining clear urine. PHYSICAL EXAMINATION: The patient is nonverbal and noncommunicative. He is restless but not agitated. Temperature is 99 degrees Fahrenheit, heart rate about 100 per minute and respiratory rate 16 per minute. Blood pressure 88/52 mmHg and oxygen saturation 99% on room air. Head is atraumatic. Neck is supple and there is no obvious jugular venous distention (JVD), though patient is not very cooperative for exam. His heart sounds are tachycardiac but regular. Lungs sound clear without any wheezing or rales. Abdomen soft and ileostomy bag has greenish liquid stools. Bowel sounds are present. Extremities have no cyanosis or clubbing. There is trace of edema on his lower extremities. Neurologically the patient has chronic brain injury and has mental retardation and remains noncommunicative. LABORATORY DATA: Today's labs show WBC count 14.2, hemoglobin 10.6 and hematocrit 28.7. Most recent chemistry showed sodium level 136 and potassium 3.7. BUN is 10 and creatinine 0.59. Glucose 110 and calcium 7.9. PROBLEMS: 1. Hyponatremia. Sodium level remains stable at about this level. He has been admitted now more than 48 hours. Initially his sodium level was low however it has leveled off. He remains on intravenous D5W and has very poor oral intake. At this point we will continue with D5W and monitor his electrolytes only twice a day as kidney function has improved and electrolytes have also improved. 2. Hypokalemia. Potassium level remains borderline low. We will continue with potassium supplement in the IV fluid. 3. Acute kidney injury. The patient had acute kidney injury at the time of admission which has improved and kidney function is now at baseline. 4. Persistent hypotension. At baseline, patient seems to have low blood pressure. He has been now on antibiotics since yesterday for possible infective etiology. We will continue with IV fluids.
[2017-05-13] MEDS: CETIRIZINE (ZyrTEC) 10 MG TAB PO SCH (21:28)
[2017-05-14] VITALS (7 sets, daily range): BP systolic 82–101; BP diastolic 50–64
[2017-05-14] MEDS: MEROPENEM INJ 1 GM in D5W MINI-BAG PLUS 100 ML IV SCH ×2 (01:48→09:21)
[2017-05-14] MEDS: POTASSIUM CHLORIDE IV SCH (02:46)
[2017-05-14] MEDS: D5W IV SCH (02:46)
[2017-05-14 05:55] LABS: MEAN CORPUSCULAR HEMOGLOBIN 31.4 pg (27.0-33.0); MEAN CORPUSCULAR HGB CONC 36.3 g/dl (32.0-36.5); MEAN CORPUSCULAR VOLUME 86.3 fl (80.0-96.0); RED CELL DISTRIBUTION WIDTH 12.9 % (11.5-14.5); WHITE BLOOD COUNT 10.7 10^3/uL (4.0-10.0)
[2017-05-14 06:23] LABS: ANION GAP 6 MEQ/L (8-16); BLOOD UREA NITROGEN 5 MG/DL (7-18); CALCIUM LEVEL 7.8 MG/DL (8.5-10.1); CARBAMAZEPINE (TEGRETOL) LEVEL 5.5 UG/ML (4.0-10.0); CARBON DIOXIDE LEVEL 26 MEQ/L (21-32); CHLORIDE LEVEL 105 MEQ/L (98-107); CREATININE FOR GFR 0.56 MG/DL (0.70-1.30); GLOMERULAR FILTRATION RATE > 60.0 (>60); GLUCOSE, FASTING 93 MG/DL (70-105); POTASSIUM SERUM 3.6 MEQ/L (3.5-5.1); SODIUM LEVEL 137 MEQ/L (136-145)
[2017-05-14] MEDS: OCTREOTIDE ACETATE 100 MCG/ML VIAL (J2354) SC SCH (09:21)
[2017-05-14] MEDS: carBAMazepine 200 MG TAB PO SCH ×3 (09:22→21:56)
[2017-05-14] MEDS: [UNRECOGNIZED DRUG - OTHER] PO SCH ×3 (09:22→21:58)
[2017-05-14] MEDS: SIMETHICONE 80 MG CHEW TAB PO SCH ×3 (09:22→16:48)
[2017-05-14] MEDS: PHENYTOIN 50 MG CHEW TABLET PO SCH ×3 (09:22→21:57)
--- NOTE | 2017-05-14 09:34 | IPNPDOC ---
Subjective Date Seen The patient was seen on 05/14/17. Subjective Chief Complaint/HPI The patient is a 36-year-old male admitted with a reason for visit of Hyponatremia. Events since last encounter Still with large amount of output from Ostomy Ate 75% of breakfast today Constitutional: Denies: Chills, Fever Pulmonary: Denies: Dyspnea, Cough Cardiovascular: Denies: Chest Pain, Palpitations Gastrointestinal: Reports: Diarrhea, Denies: Nausea, Vomiting, Abdominal Pain Objective Physical Examination General Exam: Positive: Alert (Bright, alert, looking around the room. appears comfortable) Chest Exam: Negative: Clear to auscultation, Normal air movement Heart Exam: Positive: Rate Normal Abdomen Exam: Positive: Normal bowel sounds, Soft, Negative: Tenderness Extremity Exam: Positive: Edema (trace edmea BL) Assessment /Plan Problems (1) Hypotension Status: Acute Problem Text: BP improved back to baseline. (2) Hyponatremia Status: Acute Response to Treatment: Improving Problem Text: 05/14 Na+ improved with IVF - IVF adjusted due to rapid correction - Defer to Nephrology d/c of IVF and shoemaker. Once IVF d/c'd will need to monuitor Na+ for a couple of days to see if drops again related to high ostomy output (3) Sepsis Status: Acute Problem Text: D/c Meropenem on 05/14 as there is no obvious source of infection , with negative cultures, CXR, CT of A/P. 05/14 WBC improved to 10.7. CT abd/pelvis without signs of infection 05/11 BCX x 2 NG 05/11 UCX neg 05/11 Gi panel negative (4) Hypokalemia Status: Acute Problem Text: Borderline hypokalemia - Per Dr. Brasher -potassium added to IVF (5) Seizure disorder Status: Chronic Response to Treatment: Stable Problem Text: 05/14 - Carb level theraputic at 5.5 - repeat phenty level in am On phenytoin 150 daily carba 200 TID (HD phenty 150/100/100) 05/12 pheny/carba level 5.6/2.2 (baseline ~10/8); therefore, restarted carba at 200 TID 05/11 carba 11.2; therefore, was held (6) Anemia Status: Acute Problem Text: 05/14 Hgb remains stable s/p 2 units PRBC 05/12. Stool guiac negative 05/12 (7) Mental retardation Status: Chronic (8) Short gut syndrome Status: Chronic Problem Text: I spoke with nursing this afternoon - output is slowing down, so will continue octreotide at current dose of 50 BID (KES) 05/14 - On Octreotide 50 BID, but having high output - may need to increase back to 100 BID D/W attending 05/12: changed to octreotide 50 SC BID 05/11 restarted octreotide 100 SC BID Plan/VTE VTE Prophylaxis Ordered?: Yes (Start Lovenox - watch Hgb) Plan Family Medicine Attending Note: I saw and examined Mr. Ott this morning; I discussed his care with ISRAEL Skinner and I agree with her note as documented with noted additions. D/c meropenem today as no obvious bacterial infection; most likely he had a viral gastroenteritis. Continue Octreotide at current dose as output is slowing down. (KES) Disposition Move to floor VS, I&O, 24H, [facility] Vital Signs/I&O Vital Signs Date Time Temp Pulse Resp B/P (MAP) Pulse Ox O2 Delivery O2 Flow Rate FiO2 05/14/17 04:00 98.2 79 18 85/50 (62) 100 05/14/17 00:00 Room Air Laboratory Data 24H LABS Laboratory Tests 2 05/13/17 10:08: Anion Gap 7L, Glomerular Filtration Rate > 60.0, Blood Urea Nitrogen 7, Creatinine 0.59L, Sodium Level 136, Potassium Level 3.5, Chloride Level 104, Carbon Dioxide Level 25, Calcium Level 8.2L 05/14/17 05:05: Anion Gap 6L, Glomerular Filtration Rate > 60.0, Blood Urea Nitrogen 5L, Creatinine 0.56L, Sodium Level 137, Potassium Level 3.6, Chloride Level 105, Carbon Dioxide Level 26, Calcium Level 7.8L, Carbamazepine (Tegretol) Level 5.5 CBC/BMP Laboratory Tests 05/13/17 10:08 Calcium Level 8.2 L 05/14/17 05:05 Calcium Level 7.8 L, Red Blood Count 3.22 L, Mean Corpuscular Volume 86.3, Mean Corpuscular Hemoglobin 31.4, Mean Corpuscular Hemoglobin Concent 36.3, Red Cell Distribution Width 12.9 Microbiology Microbiology 05/11/17 Blood Culture - Preliminary, Resulted No Growth after 48 hours. All Specime... 05/11/17 Blood Culture - Preliminary, Resulted No Growth after 48 hours. All Specime... 05/13/17 Stool Occult Blood (COURTNEY) - Final, Complete 05/11/17 Gastrointestinal Tract Panel (PCR) - Final, Complete 05/11/17 MRSA Screen - Final, Complete 05/11/17 Urine Culture - Final, Complete ADRIANA YANES PA-C May 14, 2017 09:34 SILVIA ORDAZ MD May 14, 2017 15:27
--- NOTE | 2017-05-14 11:22 | IPN ---
DATE: 05/14/2017 Mr. Ott is seen this morning on his bedside in the intensive care unit. His parents are present in the room today and there is no [facility] staff present. The patient is much more comfortable and calm today. He is not restless. Nursing staff reports that he ate about 75% of his breakfast and is tolerating it well so far. He continues to have liquid stool from his ileostomy. His blood pressure has persistently remained in 80s to 90s. There is no vomiting reported and there is no dyspnea, chest pain, fever or chills. On physical examination, temperature 98.2 degrees Fahrenheit, heart rate 80 per minute and respiratory rate 18 per minute. Blood pressure 85/50 mmHg and oxygen saturation 100% on room air. Intake and output records from yesterday showed total intake 2655 and output 2800. Overall, he has been positive fluid balance of 6.2 liters since admission. His head is atraumatic. Neck veins are not abnormally distended. He has a central line present which is currently being used. Heart sounds are regular and he is not tachycardiac anymore. Lungs have poor inspiratory effort, but no rales or wheezing audible. Abdomen: Soft and ileostomy is functioning. Extremities have no cyanosis or clubbing. He is currently restrained with mittens on his hands. Labs show WBC count 10.7, hemoglobin 10.1 and hematocrit 27.8. Sodium is 137 and potassium 3.6. BUN 5 and creatinine 0.56. PROBLEMS: 1. Hyponatremia. Sodium level has persistently remained between 136 and 139 for the last 48 hours. The patient has started to take orally and we are going to stop his IV fluid. Electrolytes will be rechecked tomorrow morning. 2. Hypokalemia. Potassium level remains between 3.6 and 3.7. At this point, his IV fluid is being stopped and he is eating a regular diet. We will consider giving him oral potassium if needed. If he drinks Gatorade and eats regular food, his potassium level is likely to improve by itself. 3. Persistent hypotension. The patient is relatively asymptomatic and this may be his baseline blood pressure. At this point, we are stopping IV fluid and we will continue to monitor him closely. 4. Nutrition. The patient has been started on his regular diet which is pureed food and liquids. IV fluid is being stopped. DISPOSITION: The patient is being transferred out of ICU to the regular floor by his primary care team.
[2017-05-14] MEDS: ENOXAPARIN 40 MG/0.4 ML SYRINGE (J1650) SC SCH (12:01)
[2017-05-14] MEDS: CETIRIZINE (ZyrTEC) 10 MG TAB PO SCH (21:56)
[2017-05-15 05:58] LABS: MEAN CORPUSCULAR HEMOGLOBIN 30.5 pg (27.0-33.0); MEAN CORPUSCULAR HGB CONC 34.9 g/dl (32.0-36.5); MEAN CORPUSCULAR VOLUME 87.3 fl (80.0-96.0); RED CELL DISTRIBUTION WIDTH 12.8 % (11.5-14.5); WHITE BLOOD COUNT 7.6 10^3/uL (4.0-10.0)
[2017-05-15 06:00] VITALS: BP 114/71
[2017-05-15 06:15] LABS: ANION GAP 2 MEQ/L (8-16); BLOOD UREA NITROGEN 9 MG/DL (7-18); CALCIUM LEVEL 8.7 MG/DL (8.5-10.1); CARBON DIOXIDE LEVEL 29 MEQ/L (21-32); CHLORIDE LEVEL 106 MEQ/L (98-107); CREATININE FOR GFR 0.61 MG/DL (0.70-1.30); GLOMERULAR FILTRATION RATE > 60.0 (>60); GLUCOSE, FASTING 88 MG/DL (70-105); POTASSIUM SERUM 3.9 MEQ/L (3.5-5.1); SODIUM LEVEL 137 MEQ/L (136-145)
[2017-05-15] MEDS ORDERED: OCTREOTIDE ACETATE 100 MCG/ML VIAL (J2354) SC SCH (09:00)
[2017-05-15] MEDS: [UNRECOGNIZED DRUG - OTHER] PO SCH ×3 (09:00→20:27)
[2017-05-15] MEDS: SIMETHICONE 80 MG CHEW TAB PO SCH ×3 (09:32→16:36)
[2017-05-15] MEDS: carBAMazepine 200 MG TAB PO SCH ×3 (09:32→20:27)
[2017-05-15] MEDS: PHENYTOIN 50 MG CHEW TABLET PO SCH ×3 (09:38→20:26)
[2017-05-15] MEDS: ENOXAPARIN 40 MG/0.4 ML SYRINGE (J1650) SC SCH (09:39)
--- NOTE | 2017-05-15 09:43 | IPNPDOC ---
Subjective Date Seen The patient was seen on 05/15/17. Subjective Chief Complaint/HPI The patient is a 36-year-old male admitted with a reason for visit of Hyponatremia. Events since last encounter Doing well, but still with very watery copious ostomy output. Ate 100% of breakfast today and drinking well Constitutional: Denies: Chills, Fever Pulmonary: Denies: Dyspnea, Cough Cardiovascular: Denies: Chest Pain, Palpitations, Orthopnea Gastrointestinal: Reports: Diarrhea, Denies: Nausea, Vomiting, Abdominal Pain Objective Physical Examination General Exam: Positive: Alert (Bright, alert, walking in room. NAD), No Acute Distress Chest Exam: Negative: Clear to auscultation, Normal air movement Heart Exam: Positive: Rate Normal Abdomen Exam: Positive: Normal bowel sounds, Soft, Other (Ostomy with greenish watery output), Negative: Tenderness Extremity Exam: Positive: Edema (trace edmea BL) Assessment /Plan Problems (1) Short gut syndrome Status: Chronic Problem Text: 05/15 - I/O have been negative last 2 days and his ostomy output is watery which is not normal per [facility] staff in room today. Somehow his Octreotide got stopped yesterday so he did not get his pm dose. I have restarted the Octreotide at 50 BID but we may want to increase back up to 100 BID if ostomy output remains high (2) Hyponatremia Status: Acute Response to Treatment: Improving Problem Text: 05/15 - Na+ remains normal off IVF however, he still has high output from Ostomy so will need to monitor Na+ for a couple of days to see if drops again related to high ostomy output (See above regarding Octreotide) (3) Hypotension Status: Resolved Problem Text: BP improved back to baseline. (4) Sepsis Status: Acute Problem Text: D/c Meropenem on 05/14 as there is no obvious source of infection , with negative cultures, CXR, CT of A/P. Change in ostomy output was most likely due to a viral GE. 05/14 WBC improved to 10.7. CT abd/pelvis without signs of infection 05/11 BCX x 2 NG 05/11 UCX neg 05/11 Gi panel negative (5) Hypokalemia Status: Resolved (6) Seizure disorder Status: Chronic Response to Treatment: Stable Problem Text: 05/15 - Had seizure 2 night ago with low therapeutic Carba level at 5.5 and low Phenty level. Phenty dose increased today - Monitor levels. Now on phenytoin 150/100/150 carba 200 TID (7) Anemia Status: Acute Problem Text: 05/14 Hgb remains stable s/p 2 units PRBC 05/12. Stool guiac negative 05/12 (8) Mental retardation Status: Chronic Plan/VTE VTE Prophylaxis Ordered?: Yes (Start Lovenox - watch Hgb) Plan Family Medicine Attending Note: I saw and examined Mr. Ott this morning; I discussed his care with ISRAEL Skinner and I agree with her note as documented. Patient still had quite a bit of output overnight - this may have somewhat been due to missing his PM dose of octreotide. I discussed his case with his PCP yesterday who recommended increasing octreotide back to 100 SC BID , and he will wean this as an outpatient if needed. We need to make sure that PO intake is enough to balance ostomy output and maintain electrolytes within normal limits prior to discharge. (KES) VS, I&O, 24H, Fishbone Vital Signs/I&O Vital Signs Date Time Temp Pulse Resp B/P (MAP) Pulse Ox O2 Delivery O2 Flow Rate FiO2 05/15/17 06:00 97.8 84 15 114/71 (85) 97 Room Air Laboratory Data 24H LABS Laboratory Tests 2 05/15/17 05:44: Anion Gap 2L, Glomerular Filtration Rate > 60.0, Blood Urea Nitrogen 9#, Creatinine 0.61L, Sodium Level 137, Potassium Level 3.9, Chloride Level 106, Carbon Dioxide Level 29, Calcium Level 8.7, Phenytoin (Dilantin) Level 5.2L CBC/BMP Laboratory Tests 05/15/17 05:44 Red Blood Count 3.38 L, Mean Corpuscular Volume 87.3, Mean Corpuscular Hemoglobin 30.5, Mean Corpuscular Hemoglobin Concent 34.9, Red Cell Distribution Width 12.8, Calcium Level 8.7 Microbiology Microbiology 05/11/17 Blood Culture - Preliminary, Resulted No Growth after 72 hours. All specime... 05/11/17 Blood Culture - Preliminary, Resulted No Growth after 72 hours. All specime... 05/13/17 Stool Occult Blood (COURTNEY) - Final, Complete 05/11/17 Gastrointestinal Tract Panel (PCR) - Final, Complete 05/11/17 MRSA Screen - Final, Complete 05/11/17 Urine Culture - Final, Complete ADRIANA YANES PA-C May 15, 2017 09:43 SILVIA ORDAZ MD May 15, 2017 12:05
--- NOTE | 2017-05-15 12:21 | IPN ---
DATE: 05/15/2017 Mr. Ott is seen this morning on his bedside. [facility] ([facility]) staff member is present on the bedside and is interacting with the patient. [facility] staff reports that the patient did eat 100% of his breakfast and also had one big bottle of Gatorade this morning. He continues to put liquid stool from his ileostomy. No other problems are reported and the patient himself is non-communicative. PHYSICAL EXAMINATION Temperature 97.8 degrees Fahrenheit, heart rate 84 per minute and respiratory rate 15 per minute. Blood pressure 114/71 mmHg and oxygen saturation 97% on room air. Intake and output records from yesterday showed total intake 1640 and output 2960 mL. Head is atraumatic. Neck is supple and without a jugular venous distention (JVD) or thyroid enlargement. Lungs sound clear to auscultation with poor inspiratory effort. Heart sounds are regular. Abdomen is soft and ileostomy is draining greenish liquid stools. Extremities have no cyanosis or clubbing. 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 Today's labs show WBC count 7.6, hemoglobin 10.3 and hematocrit 29.5. Sodium 137 and potassium 3.9. BUN 9 and creatinine 0.61. Calcium level is 8.7. PROBLEMS: 1. Acute renal failure superimposed on chronic kidney disease. I feel that the patient has a baseline serum creatinine of about 0.5 mg/dl. He did have acute renal failure at the time of admission related to dehydration. His kidney function has improved now and we will need to monitor closely as he has high output from ileostomy and remains at risk for dehydration. I have advised the [facility] staff to continue to offer him oral fluid liberally. 2. Hyponatremia. Sodium level has corrected and remained stable. The patient will not follow fluid restriction at this point. 3. Hypotension. Blood pressure seems to have improved. This is most likely his baseline blood pressure. The patient is asymptomatic at this point.
[2017-05-15 14:00] VITALS: BP 110/56
[2017-05-15] MEDS: OCTREOTIDE ACETATE 100 MCG/ML VIAL (J2354) SC SCH (20:27)
[2017-05-15] MEDS: CETIRIZINE (ZyrTEC) 10 MG TAB PO SCH (20:27)
[2017-05-15 22:00] VITALS: BP 98/55
[2017-05-16 06:00] VITALS: BP 97/58
[2017-05-16] MEDS: PHENYTOIN 50 MG CHEW TABLET PO SCH ×2 (08:58→11:39)
[2017-05-16] MEDS: OCTREOTIDE ACETATE 100 MCG/ML VIAL (J2354) SC SCH ×2 (08:58→19:21)
[2017-05-16] MEDS: [UNRECOGNIZED DRUG - OTHER] PO SCH ×2 (08:58→16:51)
[2017-05-16] MEDS: carBAMazepine 200 MG TAB PO SCH ×2 (08:58→16:51)
[2017-05-16] MEDS: SIMETHICONE 80 MG CHEW TAB PO SCH ×3 (08:58→16:52)
[2017-05-16] MEDS: ENOXAPARIN 40 MG/0.4 ML SYRINGE (J1650) SC SCH (08:59)
[2017-05-16 09:33] LABS: MEAN CORPUSCULAR HGB CONC 34.6 g/dl (32.0-36.5); MEAN CORPUSCULAR VOLUME 89.7 fl (80.0-96.0); RED CELL DISTRIBUTION WIDTH 12.7 % (11.5-14.5); WHITE BLOOD COUNT 8.4 10^3/uL (4.0-10.0)
[2017-05-16 09:38] LABS: ANION GAP 8 MEQ/L (8-16); BLOOD UREA NITROGEN 10 MG/DL (7-18); CALCIUM LEVEL 8.9 MG/DL (8.5-10.1); CARBON DIOXIDE LEVEL 23 MEQ/L (21-32); CHLORIDE LEVEL 105 MEQ/L (98-107); CREATININE FOR GFR 0.67 MG/DL (0.70-1.30); GLOMERULAR FILTRATION RATE > 60.0 (>60); GLUCOSE, FASTING 109 MG/DL (70-105); POTASSIUM SERUM 4.1 MEQ/L (3.5-5.1); SODIUM LEVEL 136 MEQ/L (136-145)
[2017-05-16 10:25] LABS: FREE T4 0.89 NG/DL (0.76-1.46)
[2017-05-16 14:00] VITALS: BP 101/56
[2017-05-16 15:43] LABS: OSMOLALITY URINE 172 MOSM/KG (500-800)
[2017-05-16] MEDS ORDERED: OCTR100I SC (19:03)
--- NOTE | 2017-05-16 19:09 | DS.PDOC ---
Discharge Summary General Date of Admission May 11, 2017 at 13:29 Date of Discharge 05/16/2017 Primary Care Physician: Cedrick Myers M.D. Attending Physician: Remberto Roberts MD Specialist/Consultants Involve: Shanita Brasher MD Discharge Summary ADMITTING DIAGNOSES: 1. Hyponatremia. 2. Hypokalemia. 3. Acute kidney injury. 4. Mental retardation secondary to anoxic brain injury. 5. Seizure disorder. 6. Crohn's disease. 7. Poor IV access. DISCHARGE DIAGNOSES: 1. Short gut syndrome, secondary to Crohn's disease and subsequent treatments. 2. Hyponatremia, hypovolemic. 3. Hypokalemia. 4. Anemia, likely secondary to GI blood loss. 5. Seizure disorder. 6. Mental retardation secondary to anoxic brain injury. PROCEDURES PERFORMED DURING STAY: Attempted left PICC line placement, Left subclavian vein central catheter line placement for IV access. ADMISSION HISTORY: Pt mother reported that he has had very watery stool for the week prior to admission. The day before admission he did not seem to be himself and was tired, not wanting to eat/drink very much. When he did not improve on the day of admission he was brought to the ER for further evaluation Please see the admission history and physical for the remaining details. HOSPITAL COURSE: Chuck came in severely hyponatremic and it was quickly determined that this was a hypovolemic hyponatremia secondary to his high ostomy output for the last week or so. His sodium was corrected with IV fluids and the assistance of nephrology. There was concern about persistent hypotension despite high-volume fluid resuscitation, but this did finally resolve after a couple days of IV hydration. Once his high ostomy output decreased and there was an attempt to decrease his dose of octreotide as well, however this did not work and he ultimately needed to be put back on 100 g subcutaneously twice daily. DISCHARGE CONDITION: Stable. FOLLOW-UP: An appointment was scheduled with Dr. Myers on May 21 at 11 AM. DIET: Pured diet with regular liquids as he was on prior to admission. ACTIVITY: Tolerated. DISCHARGE MEDICATIONS: Please see below. ALLERGIES: Please see below. LABORATORY DATA: Please see below. IMAGIN chest x-rays, CT of the abdomen and pelvis DISCHARGE INSTRUCTIONS: 1. May return to his Day-hab work program. ITEMS TO FOLLOWUP ON ON OUTPATIENT: 1. Dose of octreotide. It was necessary to increase it back to 100 g subcutaneously twice a day. May need to be weaned slowly if possible. 2. Nephrology, is a follow-up needed with them? Vital Signs/I&Os Vital Signs Date Time Temp Pulse Resp B/P (MAP) Pulse Ox O2 Delivery O2 Flow Rate FiO2 05/16/17 14:00 98.0 81 18 101/56 (71) 100 Room Air I&O- Last 24 Hours up to 6 AM 05/17/17 06:00 Intake Total 1920 ml Output Total 650 ml Balance 1270 ml Laboratory Data Labs 24H Laboratory Tests 2 05/16/17 08:54: Anion Gap 8, Glomerular Filtration Rate > 60.0, Blood Urea Nitrogen 10, Creatinine 0.67L, Sodium Level 136, Potassium Level 4.1, Chloride Level 105, Carbon Dioxide Level 23, Calcium Level 8.9, Thyroid Stimulating Hormone (TSH) 0.871, Free Thyroxine 0.89, Phenytoin (Dilantin) Level 4.9L 05/16/17 15:03: Urine Random Osmolality 172L, Urine Random Creatinine 54.4, Urine Random Sodium < 10 CBC/BMP Laboratory Tests 05/16/17 08:54 Red Blood Count 3.58 L, Mean Corpuscular Volume 89.7, Mean Corpuscular Hemoglobin 31.0, Mean Corpuscular Hemoglobin Concent 34.6, Red Cell Distribution Width 12.7, Calcium Level 8.9 Microbiology Microbiology 05/11/17 Blood Culture - Final, Complete NO GROWTH AFTER 5 DAYS 05/11/17 Blood Culture - Final, Complete NO GROWTH AFTER 5 DAYS 05/13/17 Stool Occult Blood (COURTNEY) - Final, Complete 05/11/17 Gastrointestinal Tract Panel (PCR) - Final, Complete 05/11/17 MRSA Screen - Final, Complete 05/11/17 Urine Culture - Final, Complete Discharge Medications Scheduled (Cerave) 1 Cre Cre, 1 DOSE TOP TID, (Reported) APPLY TO ENTIRE BODY (Ensure Clear) 1 Liq Liq, 6 OZ PO TID, (Reported) Calcium Carbonate (Calcium Carbonate) 1,250 Mg/5 Ml Juli, 1,250 MG PO TID, ( Reported) Carbamazepine (Tegretol) 100 Mg/5 Ml Susp, 300 MG PO BID, (Reported) TAKES MORNING AND 1600 Carbamazepine (Tegretol) 100 Mg/5 Ml Susp, 200 MG PO QHS, (Reported) Cetirizine HCl (Cetirizine HCl) 10 Mg Tab, 10 MG PO QHS, (Reported) CRUSH Cholecalciferol (Vitamin D3) 5,000 Unit Cap, 5,000 UNIT PO DAILY, (Reported) CRUSH Multivitamins Liquid *[facility] STOCKED* (Multi-Delyn Liquid *[facility] STOCKED*) 5 Ml Liqd , 30 ML PO DAILY, (Reported) Octreotide Acetate (Octreotide Acetate) 100 Mcg/Ml Inj, 100 MCG SC BID Phenytoin (Dilantin Infatabs) 50 Mg Chew, 150 MG PO QAM, (Reported) CRUSH Phenytoin (Dilantin Infatabs) 50 Mg Chew, 100 MG PO BID, (Reported) CRUSH - TAKES AT NOON AND 1600 Simethicone (Gas Relief) 80 Mg Chw, 160 MG PO TID, (Reported) CRUSH Triglycerides (Mct Oil) 946 Ml Oil, 15 ML PO TID, (Reported) Allergies Coded Allergies: Cephalosporins (Verified Allergy, Intermediate, KEFLEX AND CECLOR-HIVES AND SWELLING(non-specific), 02/02/14) Replaces KEFUROX 1.5 G REPORTED HIVES AND SWELLING TO KEFLEX AND CECLOR SWELLING TO PCN Metronidazole (Verified Allergy, Intermediate, RASH/HIVES, 11/17/12) Penicillins (Verified Allergy, Intermediate, SWELLING (non-specific), 02/02) SWELLING: TOLERATES INVANZ Lactose (Verified Allergy, Mild, 11/17/12) Bee Venom (Verified Allergy, Unknown, 11/17/12) Cefaclor (Verified Allergy, Unknown, 12/15/16) Gentamicin (Verified Allergy, Unknown, 11/17/12) Grass (Verified Allergy, Unknown, 06/30/11) Molds & Smuts (Verified Allergy, Unknown, 11/17/12) POLLEN (Verified Allergy, Unknown, 06/30/11) Quinolones (Verified Allergy, Unknown, CIPRO, 11/17/12) Erythromycin (Verified Adverse Reaction, Unknown, 11/17/12) Remberto Roberts MD May 16, 2017 19:09
[2017-05-16] MEDS ORDERED: ACETAMINOPHEN TAB 650MG DOSE (2X325MG) PO ONE (19:15)
--- NOTE | 2017-05-17 03:34 | IPN ---
DATE OF SERVICE: 05/16/2017 SUBJECTIVE: Patient was seen and examined at the bedside today morning. Patient was lying in bed comfortably resting. His caregiver was also present at the bedside. Patient is hemodynamically stable at this time. He is afebrile. Sodium level is stable at 136 and his renal function is also stable. REVIEW OF SYSTEMS: Patient is unable to provide any reliable review of systems because of anoxic brain injury in the past. Otherwise, patient is in no apparent distress at this time. OBJECTIVE: Vital signs: Temperature is 97.6 degrees Fahrenheit. Blood pressure is 97/58. Pulse is 87. Respiratory rate of 16, saturating 95% on room air. Intake and output: Urine output is not recorded at this time. Patient is incontinent. Bedside weight is not available. However, his stool output was 150 mL overnight. PHYSICAL EXAMINATION: General: Patient is lying in bed, nonverbal, not communicative. No apparent distress. Head and neck exam: Pupils are equally round and reactive to light. Mucous membranes are moist. Neck is supple. There is no jugular venous distention (JVD). Cardiovascular: S1, S2, regular rate. No murmur, rub or gallop. Respiratory: Chest is clear to auscultation bilaterally. Bilateral equal air entry. No rales or rhonchi. Abdomen: Soft, positive bowel sounds, nontender. No ascites. No organomegaly. Patient has an ostomy in the left lower quadrant with some liquid stools. Musculoskeletal: No clubbing or cyanosis. Pulses are 2+. Central nervous system: Patient has history of anoxic brain injury. He is unable to communicate. He does not follow commands. LABORATORY REVIEW: CBC showed a WBC 8.4, hemoglobin 11.1, platelets are 318. BMP showed sodium 136, potassium 4.1, chloride 105, bicarbonate 23, BUN 10, creatinine 0.67, glucose 109, calcium 8.9. TSH 0.87. Free T4 is 0.89. A.m. cortisol level is pending. CURRENT INPATIENT MEDICATIONS: Patient's medications were all reviewed by me. Patient is not on any intravenous (IV) fluids at this time. His octreotide dose has been increased to 100 mcg subcutaneously twice a day. He continues to be on Imodium as needed for diarrhea as well. There is no other change in the medications today as compared with yesterday. ASSESSMENT: 36-year-old male with history of anoxic brain injury, chronically bedridden, nonverbal. This admission was secondary to acute renal failure, hypotension and hyponatremia along with hypokalemia. PLAN: 1. Acute kidney injury superimposed on chronic kidney disease. Renal function significantly improved with intravenous (IV) fluid hydration and improvement of diarrhea. Creatinine is down 0.6. Continue to monitor for now. 2. Hyponatremia. It was hypovolemic hyponatremia. Hyponatremia improved with IV fluid hydration. Sodium is 136, which is stable at this time. Continue to encourage oral hydration. 3. Ileostomy status. Continue octreotide 100 mcg subcutaneously twice a day to decrease the ileostomy output. Patient is also on Imodium 2 mg every 4 hours as needed for diarrhea. Continue to monitor the ostomy output because increased ileostomy output causes dehydration and he goes into acute renal failure. 4. Hypotension. I have ordered the cortisol level, which is pending. Patient most likely has chronic low blood pressure, but adrenal insufficiency needs to be ruled out. 5. History of seizure disorder. Okay to continue current dose of carbamazepine and Dilantin. The rest of the management is as per primary team. 6. Disposition. Patient's acute kidney injury and electrolyte abnormalities are significantly better at this time. I am hopeful that he should be able to be discharged within the next 24-48 hours.
[2017-05-18 11:05] LABS: CORTISOL AM 23.9 UG/DL (4.3-22.4)
== END 2017-05-16 20:08 | disposition home or self-care (01) | DRG 641 ==
LOC: M ED 10:30 → M ED INP 13:29 → M ICU 15:00 → M MSPAV 05-14 12:30
PROVIDERS: ADMIT General Practice; ATTEND Family Medicine
DX: E87.1 Hypo-osmolality and hyponatremia (principal); G93.1 Anoxic brain damage, not elsewhere classified; N17.9 Acute kidney failure, unspecified; J95.811 Postprocedural pneumothorax; K91.2 Postsurgical malabsorption, not elsewhere classified; K50.90 Crohn's disease, unspecified, without complications; E87.2 Acidosis; E87.6 Hypokalemia; G40.909 Epilepsy, unspecified, not intractable, without status epilepticus; D50.0 Iron deficiency anemia secondary to blood loss (chronic); K21.9 Gastro-esophageal reflux disease without esophagitis; Z93.3 Colostomy status; Z79.899 Other long term (current) drug therapy; Z88.0 Allergy status to penicillin; Z88.8 Allergy status to other drugs, medicaments and biological substances; Z91.038 Other insect allergy status; E86.0 Dehydration

== ENCOUNTER → 2017-05-21 | Outpatient (REF) | payer MEDICARE, MEDICAID ==
[~2017-05-21] MED LIST changes: +ATIV1TAB10 PO; +CERACRE TOP; +ENSU-12 PO; +EPIP0.3I2 INJ; +MORP20SO3 SL; +OCTR100I INJ; +OCTR100I SC; +PHEN50CH PO; +Scopolamine TOP; +ZOVI1CAP PO
[2017-05-21 16:14] LABS: BASO % 0.3 % (0.0-1.0); EOS # 0.1 10^3/uL (0.0-0.50); IMMATURE GRANULOCYTE % 1.7 % (0-0); LYMPH # 1.3 10^3/uL (1.5-4.5); LYMPH % 17.9 % (24.0-44.0); MEAN CORPUSCULAR HGB CONC 34.4 g/dl (32.0-36.5); MEAN CORPUSCULAR VOLUME 90.1 fl (80.0-96.0); MONO # 0.7 10^3/uL (0.0-0.8); MONO % 9.3 % (0.0-5.0); NEUTROPHILS % 69.8 % (36.0-66.0); PLATELET COUNT, AUTOMATED 445 10^3/uL (150-450); RED CELL DISTRIBUTION WIDTH 12.4 % (11.5-14.5); WHITE BLOOD COUNT 7.1 10^3/uL (4.0-10.0)
[2017-05-21 16:28] LABS: ADD MORPHOLOGY? NO
[2017-05-21 16:30] LABS: ALBUMIN 4.2 GM/DL (3.2-5.2); ALBUMIN/GLOBULIN RATIO 1.05 (1.00-1.93); ALKALINE PHOSPHATASE 119 U/L (45-117); ALT/SGPT 46 U/L (12-78); ANION GAP 10 MEQ/L (8-16); AST/SGOT 20 U/L (15-37); BILIRUBIN,TOTAL 0.2 MG/DL (0.2-1.0); BLOOD UREA NITROGEN 20 MG/DL (7-18); CALCIUM LEVEL 9.2 MG/DL (8.5-10.1); CARBON DIOXIDE LEVEL 21 MEQ/L (21-32); CHLORIDE LEVEL 99 MEQ/L (98-107); CREATININE FOR GFR 0.95 MG/DL (0.70-1.30); GLOMERULAR FILTRATION RATE > 60.0 (>60); GLUCOSE, FASTING 111 MG/DL (70-105); PHENOBARBITAL LEVEL < 2.1 UG/ML (15.0-40.0); POTASSIUM SERUM 4.9 MEQ/L (3.5-5.1); SODIUM LEVEL 130 MEQ/L (136-145); TOTAL PROTEIN 8.2 GM/DL (6.4-8.2)
[2017-05-21 16:42] LABS: OSMOLALITY SERUM 284 MOSM/KG (275-295)
== END ==
LOC: M SFHCPLAZ 13:01
PROVIDERS: ATTEND Family Medicine
DX: R19.7 Diarrhea, unspecified (principal); E55.9 Vitamin D deficiency, unspecified
CPT/HCPCS: 36415; 80053; 80156; 80184; 82306; 83930; 83970; 85025; G0463

== ENCOUNTER → 2017-05-26 | Outpatient (CLI) | payer MEDICARE, MEDICAID | LOC: M LAB 16:26 | PROVIDERS: ATTEND Family Medicine | DX: Z51.81 Encounter for therapeutic drug level monitoring (principal) ==

== ENCOUNTER 2017-06-08 12:39 | Inpatient (IN) | payer MEDICARE, MEDICAID ==
[~2017-06-08] VITALS: Ht 165.1 cm; Wt 43.5 kg
[~2017-06-08 12:39] MED LIST changes: -ATIV1TAB10 PO; -EPIP0.3I2 INJ; -MORP20SO3 SL; -OCTR100I INJ; -PHEN50CH PO; -Scopolamine TOP; -ZOVI1CAP PO
[2017-06-08] MEDS ORDERED: NS 1,000 ML IV SCH (13:13)
[2017-06-08] MEDS ORDERED: ONDANSETRON 4MG/2ML VIAL (J2405) IV ONE ×2 (13:15→15:15)
[2017-06-08] MEDS ORDERED: NS 1,000 ML IV ONE (13:15)
[2017-06-08 13:25] LABS: BASO # 0.1 10^3/uL (0.0-0.2); BASO % 0.2 % (0.0-1.0); EOS # 0.1 10^3/uL (0.0-0.50); EOS % 0.3 % (0.0-3.0); IMMATURE GRANULOCYTE % 2.8 % (0-0); LYMPH # 1.4 10^3/uL (1.5-4.5); LYMPH % 6.8 % (24.0-44.0); MEAN CORPUSCULAR HEMOGLOBIN 30.8 pg (27.0-33.0); MEAN CORPUSCULAR HGB CONC 35.7 g/dl (32.0-36.5); MEAN CORPUSCULAR VOLUME 86.3 fl (80.0-96.0); MONO # 1.2 10^3/uL (0.0-0.8); MONO % 5.8 % (0.0-5.0); NEUTROPHILS # 16.8 10^3/uL (1.8-7.7); NEUTROPHILS % 84.1 % (36.0-66.0); PLATELET COUNT, AUTOMATED 522 10^3/uL (150-450); RED CELL DISTRIBUTION WIDTH 12.3 % (11.5-14.5); WHITE BLOOD COUNT 20.1 10^3/uL (4.0-10.0)
[2017-06-08 14:26] LABS: BILIRUBIN,DIRECT 0.1 MG/DL (0.0-0.2); BILIRUBIN,TOTAL 0.3 MG/DL (0.2-1.0); CALCIUM LEVEL 9.5 MG/DL (8.5-10.1); CREATININE FOR GFR 1.83 MG/DL (0.70-1.30); GLOMERULAR FILTRATION RATE 44.3 (>60); POTASSIUM SERUM 3.9 MEQ/L (3.5-5.1); TOTAL PROTEIN 9.2 GM/DL (6.4-8.2)
[2017-06-08 14:27] LABS: ALBUMIN 4.3 GM/DL (3.2-5.2); ALBUMIN/GLOBULIN RATIO 0.88 (1.00-1.93); CARBAMAZEPINE (TEGRETOL) LEVEL 10.8 UG/ML (4.0-10.0)
--- NOTE | 2017-06-08 14:27 | REP ---
ABDOMINAL SERIES: Supine and erect view of the abdomen demonstrate no free air. There is diffuse bowel dilatation with air fluid levels on the upright view, suspicious for bowel obstruction. Multiple metallic clips are seen throughout the abdomen and pelvis. An accompanying view of the chest demonstrates no acute infiltrate. IMPRESSION: Diffuse diltation of bowel loops with air fluid levels on upright view suggesting some degree of bowel obstruction. No free air. Signed by Saulo Naidu MD 06/08/2017 04:34 P
[2017-06-08] MEDS ORDERED: GASTROGRAFIN SOLUTION 30ML PO ONE (15:20)
[2017-06-08] MEDS ORDERED: ZOVI1CAP PO (15:49)
[2017-06-08] MEDS ORDERED: PHEN50CH PO (15:49)
[2017-06-08] MEDS ORDERED: CARB10SS PO (15:49)
[2017-06-08] MEDS ORDERED: BENA25CA4 PO (15:49)
[2017-06-08] MEDS ORDERED: OCTR100I INJ (15:49)
[2017-06-08] MEDS ORDERED: EPIP0.3I2 INJ (15:49)
[2017-06-08] MEDS ORDERED: GASTROGRAFIN SOLUTION 30ML (Q9963) PO ONE (15:50)
[2017-06-08] MEDS ORDERED: HYDR-3363 PO (15:50)
[2017-06-08] MEDS ORDERED: CARBAMAZEPINE 200 MG/10 ML PO SCH ×2 (16:00→21:00)
[2017-06-08] MEDS ORDERED: PHENYTOIN 50 MG CHEW TABLET PO SCH ×2 (16:00→21:00)
--- NOTE | 2017-06-08 16:11 | REP ---
PORTABLE CHEST: AP portable view of the chest was performed and compared to prior study of the same day. Patient is rotate toward the right. Nasogastric tube has been placed traversing beneath the leve of the diaphragms. Lungs remain free of infiltrate and the heart is normal in size. Signed by Saulo Naidu MD 06/08/2017 04:37 P
[2017-06-08] MEDS ORDERED: NORCO, ANEXSIA 5/325MG TABLET (HYDROcodone/ACETAMINOPHEN) PO PRN (16:45)
[2017-06-08] MEDS ORDERED: ONDANSETRON 4MG/2ML VIAL (J2405) IV PRN (16:45)
[2017-06-08] MEDS ORDERED: hydrOXYzine 25 MG TAB PO PRN (16:45)
[2017-06-08] MEDS ORDERED: MORPHINE 2 MG/ML 1ML SYRINGE IV PRN (16:45)
[2017-06-08] MEDS ORDERED: ACYCLOVIR 200 MG CAPSULE PO PRN (16:45)
[2017-06-08] MEDS ORDERED: ACETAMINOPHEN TAB 650MG DOSE (2X325MG) PO PRN (16:45)
[2017-06-08] MEDS ORDERED: diphenhydrAMINE 25 MG CAP PO PRN (16:45)
[2017-06-08 18:00] VITALS: BP 82/53
--- NOTE | 2017-06-08 18:15 | REP ---
REASON FOR EXAM: History of Crohn's disease and small bowel obstruction. COMPARISON EXAM: Multiple the latest 05/12/2017. There is no change in appearance of lung bases. There are no pleural or pericardial effusions. Since the last examination extensive air density is seen throughout the portal venous system and there is evidence of extensive pneumatosis intestinalis. A tiny dot of free intraperitoneal air can not be excluded due to the extensive amount of pneumatosis intestinalis which would in fact obscure free intraperitoneal air. Limited evaluation of the solid intraabdominal organs are otherwise unchanged There is an enlarged gall bladder status quo. The distal portion of the nasogastric tube is identified but terminates approximately 5-6 cm proximal to the gastroesophageal junction. Limited evaluation of the kidneys and renal glands show no significant changes. There are bilateral nephroliths which are nonobstructing. Limited evaluation of the pancreas shows no significant change from prior exam. Bone window technique throughout the examination shows no change in the osseous structures. IMPRESSION: There is extensive pneumatosis intestinalis as described and seen in conjunction with extensive portal venous gas which is consistent with necrotic gut. Nasogastric tube and other findings as described above. The nasogastric tube should be repositioned for optimal placement. These findings were discussed with Dr. Arnold Valentino at the time of this dictation. Signed by Kishan Rhodes DO 06/08/2017 07:29 P
[2017-06-08] MEDS ORDERED: SODIUM CHLORIDE 0.9% 1000 ML IV ONE (18:30)
[2017-06-08] MEDS ORDERED: ISOVUE-370 76% 100ML VIAL (Q9967) As Ordered ONE (18:46)
[2017-06-08] MEDS ORDERED: SCOPOLAMINE 1.5 MG TRANSDERMAL TD PRN (19:30)
--- NOTE | 2017-06-08 19:38 | REP ---
REASON FOR EXAM: Assess for SMA embolus. CONTRAST: 100 mL [id number]. Although the patients creatinine level is 1.83, discussion with Dr. Otis Olivas and the understanding of the findings of the noncontrast CT of the abdomen done earlier today this is a dire life and situation and the benefits of administering intravenous contrast outweigh significantly the potential adverse effects. There is no change in the lung bases. There are no pleural or pericardial effusions. Once again, the tip of the nasogastric tube resides 4-5 cm proximal to the gastroesophageal junction. There is extensive pneumatosis intestinal which is unchanged. There is extensive portal venous gas throughout the hepatic parenchyma unchanged. There is gallbladder hydrops unchanged. The spleen, pancreas, adrenal glands and kidneys are unchanged and again seen to be within normal limits. Scattered air densities are seen in the superior mesenteric vein and in the portal vein. The abdominal aorta and paraaortic regions are within normal limits. The superior mesenteric artery is within normal limits as is the celiac access. The inferior mesenteric artery is enlarged which is most probably post surgical in origin since the patient is status-post total colectomy performed many years ago. No free fluid or free air is seen in the abdomen. The osseous structures are unchanged. IMPRESSION: Extensive pneumatosis intestinalis with portal venous gas and other findings consistent with gas in the superior mesenteric vein. There is no evidence of an arterial occlusion or embolus. Other findings are described above. These findings were discussed with Dr. Olivas at the read station at the time of this dictation. Signed by Kishan Rhodes DO 06/08/2017 07:50 P
--- NOTE | 2017-06-08 19:42 | IPNPDOC ---
Text Note Date of Service The patient was seen on 06/08/17. NOTE Patient was initially admitted for possible sbo though when I saw him he looks uncomfortable despite the fact that he has started to put out enteric stuff through his ostomy. I was informed by Dr. Valentino at about [address] scan results of extensive pneumatosis of his bowels. On my review, he indeed have extensive bowel pneumatosis and portal venous gas. i reviewed the CT with Dr. Rhodes from radiology. I then sent him down for a stat IV contrast CT of the abdomen to rule out a vascular event - sma embolus, portal vein thrombosis that would have caused this pneumatosis then arranged to bring him to the OR for Exploratory Laparotomy. On review of the CTA abdomen, his arterial system is intact without any sign of thrombus or embolus. He has presence of air inside his portal vein/smv, no obvious thrombosis. At this time, patient is in the recovery room. I had a long discussion with his mom and dad whom I know very well from my previous contacts with the patient. I presented them a choice of going to the OR though he already has symptoms of short gut so I dont think he will tolerate extensive bowel resectiion. Mom let me know her wish that if this is a terminal case, then she would rather keep him comfortable. As I presented it to her, if we go to the or and decide not to do anything, we may not be able to wake him up and extubate him. If she would rather that he be kept comfortable, she has the option of not going through the OR and keep him comfortable at the bedside. 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 VS,Samire, I+O VS, Samire, I+O Laboratory Tests 06/08/17 13:05 Red Blood Count 3.93 L, Mean Corpuscular Volume 86.3, Mean Corpuscular Hemoglobin 30.8, Mean Corpuscular Hemoglobin Concent 35.7, Red Cell Distribution Width 12.3, Neutrophils (%) (Auto) 84.1 H, Lymphocytes (%) (Auto) 6.8 L, Monocytes (%) (Auto) 5.8 H, Eosinophils (%) (Auto) 0.3, Basophils (%) ( Auto) 0.2, Neutrophils # (Auto) 16.8 H, Lymphocytes # (Auto) 1.4 L, Monocytes # (Auto) 1.2 H, Eosinophils # (Auto) 0.1, Basophils # (Auto) 0.1 Vital Signs Date Time Temp Pulse Resp B/P (MAP) Pulse Ox O2 Delivery O2 Flow Rate FiO2 06/08/17 18:00 98.1 129 24 82/53 (63) 100 06/08/17 12:44 Room Air I&O- Last 24 Hours up to 6 AM 06/09/17 06:00 Output Total 500 ml Balance -500 ml KRYSTAL ASHFORD MD Jun 08, 2017 19:42
[2017-06-08] MEDS: LR 1,000 ML IV SCH ×2 (19:45→21:38)
[2017-06-08] MEDS ORDERED: CALCIUM CARB SUSP 1250MG/5ML UNIT DOSE CUP PO SCH (21:00)
[2017-06-08] MEDS ORDERED: SIMETHICONE 80 MG CHEW TAB PO SCH (21:00)
[2017-06-08] MEDS ORDERED: OCTREOTIDE ACETATE 100 MCG/ML VIAL (J2354) SC SCH (21:00)
[2017-06-08] MEDS ORDERED: CETIRIZINE (ZyrTEC) 10 MG TAB PO SCH (21:00)
[2017-06-08] MEDS: ONDANSETRON 4MG/2ML VIAL (J2405) IV PRN (21:37)
[2017-06-09] MEDS: LORazepam 2 MG/ML VIAL (J2060) IV PRN ×6 (01:03→23:28)
[2017-06-09] MEDS: ONDANSETRON 4MG/2ML VIAL (J2405) IV PRN ×4 (03:35→23:28)
[2017-06-09] MEDS: LR 1,000 ML IV SCH (03:35)
[2017-06-09 08:43] VITALS: BP 97/57
[2017-06-09] MEDS ORDERED: PHENYTOIN 50 MG CHEW TABLET PO SCH (09:00)
[2017-06-09] MEDS ORDERED: VITAMIN D 1,000 INTERNATIONAL UNITS TABLET PO SCH (09:00)
[2017-06-09] MEDS ORDERED: ENOXAPARIN 30 MG/0.3 ML SYR (J1650) SC SCH (09:00)
[2017-06-09] MEDS ORDERED: PANTOPRAZOLE 40MG INJ (PROTONIX) (C9113) IV SCH (09:00)
[2017-06-09] MEDS ORDERED: METOCLOPRAMIDE INJ 10MG/2ML VIAL (J2765) IV PRN (09:30)
--- NOTE | 2017-06-09 13:12 | IPNPDOC ---
Subjective General Date/Time Seen The patient was seen on 06/09/17 at 08:02. Subject Chief Complaint/History The patient is a 36-year-old male admitted with a reason for visit of ischemic enteritis (extensive pneumatosis, extensive portal venous gas) Patient presented with sudden onset of abdominal pain nausea, vomiting was initially thought of as having bowel obstruction but on CT showed extensive pneumatosis intestinalis consistent with bowel ischemia also has extensive portal venous gas. He ruled out and arterial embolism or thrombosis as the etiology with a CT angiogram. There is also no evidence of portal vein thrombosis. Decision was made to either bring him to the whole operating room but given background of already short gut syndrome with malabsorption, he would not tolerate any extensive bowel resection and in the absence of a clear etiology, would most likely need one. After full discussion with his mom, decision made to not go to the operating room and made him comfort measures only as this most likely is a terminal event. He remains in the floor, acidotic breathing, dry heaving. Current Medications Current Medications Current Medications Acetaminophen (Tylenol Tab) 650 mg Q4HP PRN PO MILD PAIN or TEMP > 101; Start 06/08/17 at 16:45; Stop 06/08/17 at 19:28; Status DC Acetaminophen/ Hydrocodone Bitart ([place], [place] 5/325) 1 tab Q4HP PRN PO MODERATE PAIN (PS 5-7); Start 06/08/17 at 16:45; Stop 06/08/17 at 19:28; Status DC Acyclovir (Zovirax) 400 mg TIDP PRN PO COLD SORES; Start 06/08/17 at 16:45; Stop 06/08/17 at 19:28; Status DC Calcium Carbonate (Calcium Carbonate) 1,250 mg TID PO ; Start 06/08/17 at 21:00 ; Stop 06/08/17 at 21:00; Status DC Carbamazepine (TEGretol SUSPENSION) 200 mg QHS PO ; Start 06/08/17 at 21:00; Stop 06/08/17 at 21:00; Status DC Carbamazepine (TEGretol SUSPENSION) 300 mg BID@0900,1600 PO ; Start 06/08/17 at 16:00; Stop 06/08/17 at 19:28; Status DC Cetirizine HCl (ZyrTEC) 10 mg QHS PO ; Start 06/08/17 at 21:00; Stop 06/08/17 at 21:00; Status DC Diphenhydramine HCl (Benadryl) 25 mg Q4H PRN PO ALLERGY SYMPTOMS; Start at 16:45; Stop 06/08/17 at 19:28; Status DC Enoxaparin Sodium (Lovenox) 30 mg DAILY SC ; Start 06/09/17 at 09:00; Stop at 09:00; Status DC Home Med (Med Rec Complete!) ASDIRECTED XX ; Start 06/08/17 at 16:00; Stop at 16:00; Status DC Hydroxyzine HCl (Atarax) 25 mg QID PRN PO ITCHING; Start 06/08/17 at 16:45; Stop 06/08/17 at 19:28; Status DC Lactated Ringer's 1,000 ml @ 150 mls/hr Q6H40M IV Last administered on 03:35; Start 06/08/17 at 16:36; Stop 06/09/17 at 08:07; Status DC Lorazepam (Ativan) 1 mg Q2HP PRN IV ANXIETY Last administered on 06/09/17 10: 02; Start 06/08/17 at 19:30; Stop 06/15/17 at 19:29 Metoclopramide HCl (REGLAN INJection) 5 mg Q6HP PRN IV NAUSEA OR VOMITING; Start 06/09/17 at 09:30; Stop 07/09/17 at 09:29 Morphine Sulfate (Morphine Sulfate Inj) 2 mg Q2HP PRN IV SEVERE PAIN (PS 8-10) ; Start 06/08/17 at 16:45; Stop 06/08/17 at 19:28; Status DC Morphine Sulfate (Roxanol) 2 mg Q2HP PRN SL SEVERE PAIN (PS 8-10); Start 06/08 at 19:30; Stop 06/15/17 at 19:29 Octreotide Acetate (SandoSTATIN) 100 mcg BID SC ; Start 06/08/17 at 21:00; Stop 06/08/17 at 21:00; Status DC Ondansetron HCl (ZOFRAN INJection) 4 mg Q6HP PRN IV NAUSEA OR VOMITING; Start 06/08/17 at 16:45; Stop 06/08/17 at 19:28; Status DC Ondansetron HCl (ZOFRAN INJection) 4 mg Q6HP PRN IV NAUSEA OR VOMITING Last administered on 06/09/17 03:35; Start 06/08/17 at 19:30; Stop 07/08/17 at 19 :29 Pantoprazole Sodium (Protonix) 40 mg DAILY IV ; Start 06/09/17 at 09:00; Stop 06/09/17 at 09:00; Status DC Phenytoin (Dilantin Chewable) 100 mg BID@0900,1600 PO ; Start 06/08/17 at 16:00 ; Stop 06/08/17 at 16:56; Status DC Phenytoin (Dilantin Chewable) 100 mg BID@1200,2100 PO ; Start 06/08/17 at 21:00 ; Stop 06/08/17 at 21:00; Status DC Phenytoin (Dilantin Chewable) 150 mg QAM PO ; Start 06/09/17 at 09:00; Stop at 09:00; Status DC Scopolamine (Transderm-Scop) 1.5 mg Q3DP PRN TD EXCESSIVE SECRETIONS; Start at 19:30; Stop 07/08/17 at 19:29 Simethicone (Mylicon) 160 mg TID PO ; Start 06/08/17 at 21:00; Stop 06/08/17 at 21:00; Status DC Sodium Chloride 1,000 ml @ 100 mls/hr Q10H IV Last administered on 06/08/17 13:13; Start 06/08/17 at 13:13; Stop 06/08/17 at 18:34; Status DC Vitamin D (Vitamin D) 5,000 units DAILY PO ; Start 06/09/17 at 09:00; Stop at 09:00; Status DC Allergies Coded Allergies: Cephalosporins (Verified Allergy, Intermediate, KEFLEX AND CECLOR-HIVES AND SWELLING(non-specific), 02/02/14) Replaces KEFUROX 1.5 G REPORTED HIVES AND SWELLING TO KEFLEX AND CECLOR SWELLING TO PCN Metronidazole (Verified Allergy, Intermediate, RASH/HIVES, 11/17/12) Penicillins (Verified Allergy, Intermediate, SWELLING (non-specific), 02/02) SWELLING: TOLERATES INVANZ Lactose (Verified Allergy, Mild, 11/17/12) Bee Venom (Verified Allergy, Unknown, 11/17/12) Cefaclor (Verified Allergy, Unknown, 12/15/16) Gentamicin (Verified Allergy, Unknown, 11/17/12) Grass (Verified Allergy, Unknown, 06/30/11) Molds & Smuts (Verified Allergy, Unknown, 11/17/12) POLLEN (Verified Allergy, Unknown, 06/30/11) Quinolones (Verified Allergy, Unknown, CIPRO, 11/17/12) Erythromycin (Verified Adverse Reaction, Unknown, 11/17/12) Objective Physical Examination Examination GENERAL APPEARANCE: Patient pale, sick appearing, awake, acidotic breathing. SKIN: Dry. HEENT: Pale conjunctiva, lips dry. NECK: [Supple, no thyromegaly. No obvious jugular venous distention]. LUNGS: [Clear to auscultation bilaterally. No wheezing appreciated]. HEART: [No chest wall abnormalities. Regular rate and rhythm with no murmurs appreciated]. ABDOMEN: Abdomen is flat, soft, ileostomy is putting out mostly enteric- appearing. It probably some slight serosanguineous tinge though no ashley blood. EXTREMITIES: Cool dry extremities, no edema. Vital Signs Vital Signs Date Time Temp Pulse Resp B/P (MAP) Pulse Ox O2 Delivery O2 Flow Rate FiO2 06/09/17 08:43 97/57 (70) 06/08/17 18:00 98.1 129 24 100 06/08/17 12:44 Room Air I&Os I&O- Last 24 Hours up to 6 AM 06/10/17 06:00 Intake Total 0 ml Output Total 225 ml Balance -225 ml Laboratory Data Labs 24H Laboratory Tests 2 06/08/17 13:05: Immature Granulocyte % (Auto) 2.8H, White Blood Count 20.1H, Red Blood Count 3.93L, Hemoglobin 12.1L, Hematocrit 33.9L, Mean Corpuscular Volume 86.3, Mean Corpuscular Hemoglobin 30.8, Mean Corpuscular Hemoglobin Concent 35.7, Red Cell Distribution Width 12.3, Platelet Count 522H, Neutrophils (%) (Auto) 84.1H, Lymphocytes (%) (Auto) 6.8L, Monocytes (%) (Auto) 5.8H, Eosinophils (%) (Auto) 0.3, Basophils (%) (Auto) 0.2, Neutrophils # (Auto) 16.8H, Lymphocytes # (Auto) 1.4L, Monocytes # (Auto) 1.2H, Eosinophils # (Auto) 0.1, Basophils # (Auto) 0.1 , Immature Granulocyte # (Auto) 0.6H, Nucleated Red Blood Cells % (auto) 0.0, Anion Gap 12, Glomerular Filtration Rate 44.3L, Calcium Level 9.5, Aspartate Amino Transf (AST/SGOT) 38H, Alanine Aminotransferase (ALT/SGPT) 46, Alkaline Phosphatase 159H, Total Bilirubin 0.3, Direct Bilirubin 0.1, Total Protein 9.2H , Albumin 4.3, Albumin/Globulin Ratio 0.88L, Lipase 226, Phenytoin (Dilantin) Level 12.9, Carbamazepine (Tegretol) Level 10.8H 06/08/17 13:28: Lactic Acid Level 2.1*H CBC/BMP Laboratory Tests 06/08/17 13:05 Red Blood Count 3.93 L, Mean Corpuscular Volume 86.3, Mean Corpuscular Hemoglobin 30.8, Mean Corpuscular Hemoglobin Concent 35.7, Red Cell Distribution Width 12.3, Neutrophils (%) (Auto) 84.1 H, Lymphocytes (%) (Auto) 6.8 L, Monocytes (%) (Auto) 5.8 H, Eosinophils (%) (Auto) 0.3, Basophils (%) ( Auto) 0.2, Neutrophils # (Auto) 16.8 H, Lymphocytes # (Auto) 1.4 L, Monocytes # (Auto) 1.2 H, Eosinophils # (Auto) 0.1, Basophils # (Auto) 0.1 Impression Ischemic enteritis in the background of already short gut syndrome from previous surgeries requiring small bowel resection. He looks ill appearing. Still not clear what prompted this event. Most of the time its a vascular accident like to superior mesenteric embolism, portal vein thrombosis. This was ruled out with a CT angiogram. Also no evidence of portal vein thrombosis. There is some air in the portal vein and superior mesenteric vein along with extensive portal venous gas intrahepatically, extensive pneumatosis intestinalis. As I discussed with the parents is most likely not survivable for the patient or even in the likelihood of survival, would face a lot of problems with short gut. He already is losing weight from absorption. With this regard, he is placed in comfort measures only. I will stop the IV fluids. I'll add some Reglan for his dry heaving. Plan / VTE VTE Prophylaxis Ordered?: No VTE Exclusion Mechanical Proph: Other KRYSTAL ASHFORD MD Jun 09, 2017 13:12
[2017-06-09 13:20] VITALS: BP 67/43
--- NOTE | 2017-06-09 13:45 | HPEPDOC ---
General Surgery H&P Date of Admission History and Physical CHIEF COMPLAINT: generalized weakness, nausea, vomiting x 1 day HISTORY OF PRESENT ILLNESS: Patient known to me from past admissions, though its been awhile since I last treated him with a surgical problem. 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 His last surgery was 3 years ago with a colorectal surgeon where he had his ileostomy placed to the left side with sugarbaker type of repair to address the ileostomy prolapse. Since then mom tells me he has had multiple admissions for dehydration , electrolyte abnormalities from high output of his ileostomy. He also appeared to have lost a good amount of weight in the last time that I have seen and treated them. currently patient noted to be uncomfortable this am then subsequently had episodes of vomiting today, thus was brought to the ER and on Xray has a small bowel obstructiion pattern thus I was called to admit patient. ALLERGIES: Please see below. HOME MEDICATIONS: Please see below. 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, ileostomy Multiple bouts of small bowel obstruction with lysis of adhesions and small bowel resection Ileostomy prolapse needing revision, tendon transfer of ileostomy site to the left side High output ileostomy being suspected to have short gut syndrome Hyponatremia, hypomagnesemia PAST SURGICAL HISTORY: multiple abdominal surgeries Colectomy/Ileostomy 03/27 [place] Small bowel resection/SBO 10/27 repair of parastomal hernia 05/28 ileostomy relocation repair of ileostomy collapse PERSONAL/SOCIAL HISTORY: [facility] resident, his mom is the guardian and decision maker. He also has supportive friends and family including stepfather REVIEW OF SYSTEMS: From his mother and broadcast meteorologist [facility] reports he has had multiple admissions for dehydration, high ileostomy output, hyponatremia, worsening kidney status. He seems to have lost a good amount of weight since I last took care of him more than 3 years ago. I had seen him in the hospital a few times since had high to him during his previous admissions for dehydration and electrolyte imbalance from his high ileostomy output. No reports of fever, sick contacts. Though he is being admitted for small bowel obstruction, he has had ileostomy output. The ileostomy was drained prior to him coming to the emergency room. Reports him not feeling well and not acting right this morning. PHYSICAL EXAMINATION: VITAL SIGNS: Please see below. GENERAL APPEARANCE: Patient appears ill, dry heaving, retching. Appears quite thin and emaciated HEENT: Dry, dehydrated-appearing, dry lips. NG tube in place not draining much CHEST: [No chest wall abnormalities. Normal respiratory motion/effort]. NECK: [Supple. No thyromegaly. No lymphadenopathies]. LUNGS: [Lung sounds are clear to auscultation bilaterally. No wheezing appreciated]. HEART: [No chest wall abnormalities. Heart rate and rhythm are regular with no murmurs]. ABDOMEN: [Abdomen is round, moderately distended, soft. No obvious hernias. Left lower quadrant ileostomy now putting out brownish thin fluid. Ileostomy is pink SKIN: And warm and dry. EXTREMITIES: No deformities. NEUROLOGICAL: Nonverbal but responds accordingly to verbal cues from the parents. ANCILLARIES: LABORATORY DATA: Please see below. MICROBIOLOGY: Please see below. IMAGING: Abdominal x-ray Diffuse diltation of bowel loops with air fluid levels on upright view suggesting some degree of bowel obstruction. No free air. CT abdomen and pelvis noncontrast : There is extensive pneumatosis intestinalis as described and seen in conjunction with extensive portal venous gas which is consistent with necrotic gut. Nasogastric tube and other findings as described above. The nasogastric tube should be repositioned for optimal placement. These findings were discussed with Dr. Arnold Valentino at the time of this dictation. IMPRESSION AND PLAN: Patient initially seen for possible small bowel obstruction. He didn't appear heal, retching, dry heaving despite the fact that he has started to put out stone from his ileostomy. His abdomen is markedly distended and soft. Unfortunately a consistent physical examination his heart for him given his degree of mental retardation. When the CT of the abdomen and pelvis was taken and results came out this was read with extensive pneumatosis intestinalis and portal venous, suggestive of widespread ischemic bowel. I was spoken to the on- call radiologist regarding the findings and have decided to bring him down again to the CT scanner to do a contrast study to rule out superior mesenteric artery emboli or thrombus or even portal venous thrombosis as a cause of this is per the family's report he was well up until this morning. Certainly situation is dire no matter what the cause is given the fact that he already had his symptoms of shortness of syndrome with a very high output ileostomy the seems to have caused him to lose a lot of weight since I last took care of him. The CT angiogram of the abdomen has returned and this did not show any sperm mesenteric artery embolism, thrombosis or portal venous thrombosis. I have spoken to the parents have communicated with him how direct think the circumference and cyst sent if he has any chance he would need to go to the operating room though the fact that we do not hold the cause of . ischemia this generalized ischemia of the bowel, the prognosis is fairly poor. Coupled this with the fact that I do not think he can tolerate extensive bowel resection. Patient is aware and have agreed to bring him to the operating room. Plan is to take a look at the state of the bowel and before proceeding further we will come out and talked to the mother whether to proceed with any extensive measures. Vital Signs Vital Signs Date Time Temp Pulse Resp B/P (MAP) Pulse Ox O2 Delivery O2 Flow Rate FiO2 06/08/17 13:30 06/08/17 12:44 98.3 103 18 100 Room Air Laboratory Data Labs 24H Laboratory Tests 2 06/08/17 13:05: Immature Granulocyte % (Auto) 2.8H, White Blood Count 20.1H, Red Blood Count 3.93L, Hemoglobin 12.1L, Hematocrit 33.9L, Mean Corpuscular Volume 86.3, Mean Corpuscular Hemoglobin 30.8, Mean Corpuscular Hemoglobin Concent 35.7, Red Cell Distribution Width 12.3, Platelet Count 522H, Neutrophils (%) (Auto) 84.1H, Lymphocytes (%) (Auto) 6.8L, Monocytes (%) (Auto) 5.8H, Eosinophils (%) (Auto) 0.3, Basophils (%) (Auto) 0.2, Neutrophils # (Auto) 16.8H, Lymphocytes # (Auto) 1.4L, Monocytes # (Auto) 1.2H, Eosinophils # (Auto) 0.1, Basophils # (Auto) 0.1 , Immature Granulocyte # (Auto) 0.6H, Nucleated Red Blood Cells % (auto) 0.0, Anion Gap 12, Glomerular Filtration Rate 44.3L, Calcium Level 9.5, Aspartate Amino Transf (AST/SGOT) 38H, Alanine Aminotransferase (ALT/SGPT) 46, Alkaline Phosphatase 159H, Total Bilirubin 0.3, Direct Bilirubin 0.1, Total Protein 9.2H , Albumin 4.3, Albumin/Globulin Ratio 0.88L, Lipase 226, Phenytoin (Dilantin) Level 12.9, Carbamazepine (Tegretol) Level 10.8H 06/08/17 13:28: Lactic Acid Level 2.1*H CBC/BMP Laboratory Tests 06/08/17 13:05 Red Blood Count 3.93 L, Mean Corpuscular Volume 86.3, Mean Corpuscular Hemoglobin 30.8, Mean Corpuscular Hemoglobin Concent 35.7, Red Cell Distribution Width 12.3, Neutrophils (%) (Auto) 84.1 H, Lymphocytes (%) (Auto) 6.8 L, Monocytes (%) (Auto) 5.8 H, Eosinophils (%) (Auto) 0.3, Basophils (%) ( Auto) 0.2, Neutrophils # (Auto) 16.8 H, Lymphocytes # (Auto) 1.4 L, Monocytes # (Auto) 1.2 H, Eosinophils # (Auto) 0.1, Basophils # (Auto) 0.1 Home Medications Scheduled (Cerave) 1 Cre Cre, 1 DOSE TOP TID, (Reported) APPLY TO ENTIRE BODY (Ensure Clear) 1 Liq Liq, 6 OZ PO TID, (Reported) Calcium Carbonate (Calcium Carbonate) 1,250 Mg/5 Ml Juli, 1,250 MG PO TID, ( Reported) Carbamazepine (Tegretol) 100 Mg/5 Ml Susp, 15 ML PO BID, (Reported) AM & PM Carbamazepine (Tegretol) 100 Mg/5 Ml Susp, 10 ML PO QHS, (Reported) Cetirizine HCl (Cetirizine HCl) 10 Mg Tab, 10 MG PO QHS, (Reported) Cholecalciferol (Vitamin D3) 5,000 Unit Cap, 5,000 UNIT PO DAILY, (Reported) Multivitamins Liquid *[facility] STOCKED* (Multi-Delyn Liquid *[facility] STOCKED*) 5 Ml Liqd , 30 ML PO DAILY, (Reported) Octreotide Acetate (Octreotide Acetate) 100 Mcg/Ml Inj, 100 MCG INJ BID, ( Reported) Phenytoin (Dilantin Infatabs) 50 Mg Chew, 150 MG PO QAM, (Reported) Phenytoin (Phenytoin) 50 Mg Chw, 100 MG PO BID, (Reported) NOON & PM Simethicone (Gas Relief) 80 Mg Chw, 160 MG PO TID, (Reported) Triglycerides (Mct Oil) 946 Ml Oil, 15 ML PO TID, (Reported) Scheduled PRN (Epipen 2-Agustin) 0.3 Mg/0.3 Ml Inj, 0.3 MG INJ PRN PRN for SEVERE ALLERGIC REACTION, (Reported) Acyclovir (Zovirax) 200 Mg Cap, 400 MG PO TID PRN for COLD SORES, (Reported) Diphenhydramine HCl (Benadryl Allergy) 25 Mg Cap, 25 MG PO Q4H PRN for ALLERGY SYMPTOMS, (Reported) Hydroxyzine HCl (Hydroxyzine HCl) 25 Mg Tab, 25 MG PO QID PRN for ITCHING, ( Reported) Allergies Coded Allergies: Cephalosporins (Verified Allergy, Intermediate, KEFLEX AND CECLOR-HIVES AND SWELLING(non-specific), 02/02/14) Replaces KEFUROX 1.5 G REPORTED HIVES AND SWELLING TO KEFLEX AND CECLOR SWELLING TO PCN Metronidazole (Verified Allergy, Intermediate, RASH/HIVES, 11/17/12) Penicillins (Verified Allergy, Intermediate, SWELLING (non-specific), 02/02) SWELLING: TOLERATES INVANZ Lactose (Verified Allergy, Mild, 11/17/12) Bee Venom (Verified Allergy, Unknown, 11/17/12) Cefaclor (Verified Allergy, Unknown, 12/15/16) Gentamicin (Verified Allergy, Unknown, 11/17/12) Grass (Verified Allergy, Unknown, 06/30/11) Molds & Smuts (Verified Allergy, Unknown, 11/17/12) POLLEN (Verified Allergy, Unknown, 06/30/11) Quinolones (Verified Allergy, Unknown, CIPRO, 11/17/12) Erythromycin (Verified Adverse Reaction, Unknown, 11/17/12) KRYSTAL ASHFORD MD Jun 08, 2017 16:46
[2017-06-09 16:24] VITALS: BP 63/43
[2017-06-10] MEDS: LORazepam 2 MG/ML VIAL (J2060) IV PRN (01:30)
[2017-06-10] MEDS: MORPHINE 10MG/0.5ML ORAL CONCENTRATE SOLUTION U/D SL PRN ×7 (01:30→21:34)
[2017-06-10] MEDS ORDERED: LORazepam 2 MG/ML VIAL (J2060) SL PRN (08:30)
[2017-06-10] MEDS ORDERED: ONDANSETRON 4 MG ORAL DISINTEGRATING TAB (S0181) PO PRN (08:45)
[2017-06-10 09:45] VITALS: BP 72/46
[2017-06-10] MEDS: LORazepam 1 MG TAB SL PRN ×6 (09:55→21:34)
--- NOTE | 2017-06-10 14:17 | IPNPDOC ---
Subjective General Date/Time Seen The patient was seen on 06/10/17 at 14:13. Subject Chief Complaint/History The patient is a 36-year-old male admitted with a reason for visit of ischemic bowel. Patient was seen sleeping, minimally arousable. Family is at the bedside with him. Reports he has been sleeping for the past 3-4 hours. The retching is better. We have lost his IV line and we have changed his IV medications to oral or transdermal. Family is asking whether we should start him on some seizure precautions. Current Medications Current Medications Current Medications Acetaminophen (Tylenol Tab) 650 mg Q4HP PRN PO MILD PAIN or TEMP > 101; Start 06/08/17 at 16:45; Stop 06/08/17 at 19:28; Status DC Acetaminophen/ Hydrocodone Bitart ([place], Anexsia 5/325) 1 tab Q4HP PRN PO MODERATE PAIN (PS 5-7); Start 06/08/17 at 16:45; Stop 06/08/17 at 19:28; Status DC Acyclovir (Zovirax) 400 mg TIDP PRN PO COLD SORES; Start 06/08/17 at 16:45; Stop 06/08/17 at 19:28; Status DC Calcium Carbonate (Calcium Carbonate) 1,250 mg TID PO ; Start 06/08/17 at 21:00 ; Stop 06/08/17 at 21:00; Status DC Carbamazepine (TEGretol SUSPENSION) 200 mg QHS PO ; Start 06/08/17 at 21:00; Stop 06/08/17 at 21:00; Status DC Carbamazepine (TEGretol SUSPENSION) 300 mg BID@0900,1600 PO ; Start 06/08/17 at 16:00; Stop 06/08/17 at 19:28; Status DC Cetirizine HCl (ZyrTEC) 10 mg QHS PO ; Start 06/08/17 at 21:00; Stop 06/08/17 at 21:00; Status DC Diphenhydramine HCl (Benadryl) 25 mg Q4H PRN PO ALLERGY SYMPTOMS; Start at 16:45; Stop 06/08/17 at 19:28; Status DC Enoxaparin Sodium (Lovenox) 30 mg DAILY SC ; Start 06/09/17 at 09:00; Stop at 09:00; Status DC Home Med (Med Rec Complete!) ASDIRECTED XX ; Start 06/08/17 at 16:00; Stop at 16:00; Status DC Hydroxyzine HCl (Atarax) 25 mg QID PRN PO ITCHING; Start 06/08/17 at 16:45; Stop 06/08/17 at 19:28; Status DC Lactated Ringer's 1,000 ml @ 150 mls/hr Q6H40M IV Last administered on 03:35; Start 06/08/17 at 16:36; Stop 06/09/17 at 08:07; Status DC Lorazepam (Ativan) 1 mg Q2HP PRN IV ANXIETY Last administered on 06/10/17 01: 30; Start 06/08/17 at 19:30; Stop 06/10/17 at 08:27; Status DC Lorazepam (Ativan) 1 mg Q2HP PRN SL ANXIETY; Start 06/10/17 at 08:30; Stop at 08:30; Status DC Lorazepam (Ativan) 1 mg Q2HP PRN SL AGITATION Last administered on 06/10/17 12:18; Start 06/10/17 at 08:45; Stop 06/17/17 at 08:44 Metoclopramide HCl (REGLAN INJection) 5 mg Q6HP PRN IV NAUSEA OR VOMITING; Start 06/09/17 at 09:30; Stop 06/10/17 at 08:27; Status DC Morphine Sulfate (Morphine Sulfate Inj) 2 mg Q2HP PRN IV SEVERE PAIN (PS 8-10) ; Start 06/08/17 at 16:45; Stop 06/08/17 at 19:28; Status DC Morphine Sulfate (Roxanol) 2 mg Q2HP PRN SL SEVERE PAIN (PS 8-10) Last administered on 06/10/17 13:18; Start 06/08/17 at 19:30; Stop 06/15/17 at 19 :29 Octreotide Acetate (SandoSTATIN) 100 mcg BID SC ; Start 06/08/17 at 21:00; Stop 06/08/17 at 21:00; Status DC Ondansetron HCl (ZOFRAN INJection) 4 mg Q6HP PRN IV NAUSEA OR VOMITING; Start 06/08/17 at 16:45; Stop 06/08/17 at 19:28; Status DC Ondansetron HCl (ZOFRAN INJection) 4 mg Q6HP PRN IV NAUSEA OR VOMITING Last administered on 06/09/17 23:28; Start 06/08/17 at 19:30; Stop 06/10/17 at 08 :28; Status DC Ondansetron HCl (Zofran Odt) 4 mg Q6HP PRN PO NAUSEA OR VOMITING; Start at 08:45; Stop 07/10/17 at 08:44 Pantoprazole Sodium (Protonix) 40 mg DAILY IV ; Start 06/09/17 at 09:00; Stop 06/09/17 at 09:00; Status DC Phenytoin (Dilantin Chewable) 100 mg BID@0900,1600 PO ; Start 06/08/17 at 16:00 ; Stop 06/08/17 at 16:56; Status DC Phenytoin (Dilantin Chewable) 100 mg BID@1200,2100 PO ; Start 06/08/17 at 21:00 ; Stop 06/08/17 at 21:00; Status DC Phenytoin (Dilantin Chewable) 150 mg QAM PO ; Start 06/09/17 at 09:00; Stop at 09:00; Status DC Scopolamine (Transderm-Scop) 1.5 mg Q3DP PRN TD EXCESSIVE SECRETIONS; Start at 19:30; Stop 07/08/17 at 19:29 Simethicone (Mylicon) 160 mg TID PO ; Start 06/08/17 at 21:00; Stop 06/08/17 at 21:00; Status DC Sodium Chloride 1,000 ml @ 100 mls/hr Q10H IV Last administered on 06/08/17 13:13; Start 06/08/17 at 13:13; Stop 06/08/17 at 18:34; Status DC Vitamin D (Vitamin D) 5,000 units DAILY PO ; Start 06/09/17 at 09:00; Stop at 09:00; Status DC Allergies Coded Allergies: Cephalosporins (Verified Allergy, Intermediate, KEFLEX AND CECLOR-HIVES AND SWELLING(non-specific), 02/02/14) Replaces KEFUROX 1.5 G REPORTED HIVES AND SWELLING TO KEFLEX AND CECLOR SWELLING TO PCN Metronidazole (Verified Allergy, Intermediate, RASH/HIVES, 11/17/12) Penicillins (Verified Allergy, Intermediate, SWELLING (non-specific), 02/02) SWELLING: TOLERATES INVANZ Lactose (Verified Allergy, Mild, 11/17/12) Bee Venom (Verified Allergy, Unknown, 11/17/12) Cefaclor (Verified Allergy, Unknown, 12/15/16) Gentamicin (Verified Allergy, Unknown, 11/17/12) Grass (Verified Allergy, Unknown, 06/30/11) Molds & Smuts (Verified Allergy, Unknown, 11/17/12) POLLEN (Verified Allergy, Unknown, 06/30/11) Quinolones (Verified Allergy, Unknown, CIPRO, 11/17/12) Erythromycin (Verified Adverse Reaction, Unknown, 11/17/12) Objective Physical Examination Examination GENERAL APPEARANCE: Pale, sick appearing. SKIN: Central skin is warm but extremities cool, slightly mottled. HEENT: Peel lips and palpebral conjunctiva. NECK: [Supple, no thyromegaly. No obvious jugular venous distention]. LUNGS: [Clear to auscultation bilaterally. No wheezing appreciated]. HEART: [No chest wall abnormalities. Regular rate and rhythm with no murmurs appreciated]. ABDOMEN: Abdomen is flat, soft, ostomy is dusky, brown thin stool in the bag. . EXTREMITIES: Pale, cool extremities Vital Signs Vital Signs Date Time Temp Pulse Resp B/P (MAP) Pulse Ox O2 Delivery O2 Flow Rate FiO2 06/10/17 13:18 14 97 Room Air 06/10/17 09:45 98.1 113 72/46 (55) I&Os I&O- Last 24 Hours up to 6 AM 06/11/17 05:59 Intake Total 0 ml Output Total 0 ml Balance 0 ml Impression Ischemic bowel, nonocclusive Since we did not do an abdominal exploration exact etiology is not certain though I suspect this is something to do with either severe infection or degree of dehydration from the ileostomy output. Patient appears sick, pale, septic-looking it starting to have coolness of the extremities. He is comfortable measures only. He will try to get him as comfortable as we can. This is a terminal event unfortunately. Plan / VTE VTE Prophylaxis Ordered?: No VTE Exclusion Mechanical Proph: Other KRYTSAL ASHFORD MD Jun 10, 2017 14:17
[2017-06-11] MEDS: MORPHINE 10MG/0.5ML ORAL CONCENTRATE SOLUTION U/D SL PRN ×8 (04:16→22:04)
[2017-06-11] MEDS: LORazepam 1 MG TAB SL PRN ×8 (04:16→22:05)
[2017-06-11 08:00] VITALS: BP 76/51
--- NOTE | 2017-06-11 18:33 | REP ---
CT of the abdomen and pelvis without IV contrast but with bowel contrast: Comparison is 2016 with IV contrast but without bowel contrast. The the extensive pneumatosis i intestinalis and portal venous gas have significantly decreased. No definite pneumoperitoneum is identified. However motion artifact and absence of bowel contrast makes this technically difficult to determine. A small volume of pneumoperitoneum could be masked. The splenic flexure of the colon is markedly dilated measuring up to 8 cm transversely. The remainder of the bowel loops are no longer dilated. There is no ascites. There is a barium filled tract extending into the anterior abdominal wall approximate 4 cm inferior to the umbilicus. There is residual contrast within the renal calyces and pelves. Upon review of the prior study i do not see stenosis of the superior mesenteric artery. 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 There is smaller accessory hepatic artery and a small splenic artery arising independently from the aorta above the SMA. Impression: The pneumatosis intestinalis and portal venous gas has significantly decreased. The splenic flexure of the colon remains dilated. 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 Signed by Saulo Kemp MD 06/11/2017 06:24 P
[2017-06-12] MEDS: MORPHINE 10MG/0.5ML ORAL CONCENTRATE SOLUTION U/D SL PRN ×3 (06:18→15:14)
[2017-06-12] MEDS: LORazepam 1 MG TAB SL PRN ×4 (06:19→23:44)
[2017-06-12] MEDS ORDERED: NS 1,000 ML IV ONE (12:00)
[2017-06-12] MEDS ORDERED: KCL 20MEQ IN D5/0.45NS 1000ML 1,000 ML IV SCH (12:00)
[2017-06-12] MEDS ORDERED: ERTAPENEM SODIUM 1 GM in NS MINI-BAG PLUS 50 ML IV SCH (13:00)
[2017-06-12] MEDS ORDERED: LORazepam 2 MG/ML VIAL (J2060) IM STA (15:38)
[2017-06-12 17:00] LABS: MEAN CORPUSCULAR HEMOGLOBIN 30.3 pg (27.0-33.0); MEAN CORPUSCULAR HGB CONC 34.2 g/dl (32.0-36.5); MEAN CORPUSCULAR VOLUME 88.5 fl (80.0-96.0); PLATELET COUNT, AUTOMATED 383 10^3/uL (150-450); RED CELL DISTRIBUTION WIDTH 13.3 % (11.5-14.5); WHITE BLOOD COUNT 23.2 10^3/uL (4.0-10.0)
[2017-06-12 17:02] LABS: ADD MANUAL DIFFER YES; DIFF SLIDE NUMBER 269; POS COUNT POS FLAG; POSITIVE MORPH POS FLAG
--- NOTE | 2017-06-12 17:07 | REP ---
Portable chest, 04:31 p.m., single AP view, post left central line placement attempt: Comparisons are 06/08/2017 and 05/11/2017. There is no pneumothorax or pleural fluid collection on the left on the right. The lung brooks are clear. Cardiac size is normal. The becky, mediastinum, and bony thorax are unremarkable. The patient is rotated. The splenic flexure of the colon is distended with air beneath the left hemidiaphragm. Signed by Saulo Kemp MD 06/12/2017 04:58 P
[2017-06-12 17:15] VITALS: BP 95/64
[2017-06-12 17:46] LABS: ALBUMIN/GLOBULIN RATIO 0.82 (1.00-1.93); BILIRUBIN,TOTAL 0.3 MG/DL (0.2-1.0); CALCIUM LEVEL 9.3 MG/DL (8.5-10.1); CREATININE FOR GFR 6.87 MG/DL (0.70-1.30); GLOMERULAR FILTRATION RATE 9.6 (>60); POTASSIUM SERUM 4.7 MEQ/L (3.5-5.1); TOTAL PROTEIN 8.9 GM/DL (6.4-8.2)
[2017-06-12 18:00] VITALS: BP 99/68
[2017-06-12] MEDS: NS 1,000 ML IV SCH (18:00)
[2017-06-12 18:13] LABS: BANDS 4 % (< 11); BASOPHILS 1 % (0-4)
[2017-06-12] MEDS: MORPHINE SULFATE ORAL SOLN 10 MG/5 ML UD SL PRN (19:52)
[2017-06-12 22:00] VITALS: BP 110/72
[2017-06-12 23:38] VITALS: BP 108/72
[2017-06-13 02:00] VITALS: BP 114/80
[2017-06-13] MEDS: NS 1,000 ML IV SCH (02:22)
[2017-06-13] MEDS: MORPHINE SULFATE ORAL SOLN 10 MG/5 ML UD SL PRN ×2 (02:23→11:07)
[2017-06-13] MEDS ORDERED: ERTAPENEM SODIUM 1 GM in NS MINI-BAG PLUS 50 ML IV SCH (03:00)
[2017-06-13] MEDS ORDERED: ERTAPENEM SODIUM 0.5 GM in NS 50 ML IV SCH (04:00)
[2017-06-13 05:58] LABS: MEAN CORPUSCULAR HGB CONC 34.3 g/dl (32.0-36.5); MEAN CORPUSCULAR VOLUME 90.4 fl (80.0-96.0); PLATELET COUNT, AUTOMATED 322 10^3/uL (150-450); RED CELL DISTRIBUTION WIDTH 13.5 % (11.5-14.5); WHITE BLOOD COUNT 22.5 10^3/uL (4.0-10.0)
[2017-06-13 06:00] VITALS: BP 110/78
[2017-06-13] MEDS: LORazepam 1 MG TAB SL PRN (06:12)
[2017-06-13 06:15] LABS: ALBUMIN 3.3 GM/DL (3.2-5.2); ALBUMIN/GLOBULIN RATIO 0.97 (1.00-1.93); BILIRUBIN,TOTAL 0.3 MG/DL (0.2-1.0); CALCIUM LEVEL 8.6 MG/DL (8.5-10.1); CREATININE FOR GFR 2.8 MG/DL (0.70-1.30); GLOMERULAR FILTRATION RATE 27.1 (>60); POTASSIUM SERUM 4.3 MEQ/L (3.5-5.1); TOTAL PROTEIN 6.7 GM/DL (6.4-8.2)
[2017-06-13] MEDS ORDERED: D5W/0.45% SODIUM CHLORIDE 1,000 ML IV SCH (09:15)
[2017-06-13 10:00] VITALS: BP 92/48
--- NOTE | 2017-06-13 13:23 | IPNPDOC ---
Text Note Date of Service The patient was seen on 06/13/17. NOTE Full note to follow. Family reports patient coughing and choking when given clears. Placed NPO, speech consulted. VS,Fishbone, I+O VS, Fishbone, I+O Laboratory Tests 06/12/17 16:45 Red Blood Count 3.73 L, Mean Corpuscular Volume 88.5, Mean Corpuscular Hemoglobin 30.3, Mean Corpuscular Hemoglobin Concent 34.2, Red Cell Distribution Width 13.3, Calcium Level 9.3, Aspartate Amino Transf (AST/SGOT) 16 , Alanine Aminotransferase (ALT/SGPT) 25, Alkaline Phosphatase 108, Total Bilirubin 0.3, Total Protein 8.9 H, Albumin 4.0 06/13/17 05:37 Red Blood Count 3.03 L, Mean Corpuscular Volume 90.4, Mean Corpuscular Hemoglobin 31.0, Mean Corpuscular Hemoglobin Concent 34.3, Red Cell Distribution Width 13.5, Calcium Level 8.6, Aspartate Amino Transf (AST/SGOT) 14 , Alanine Aminotransferase (ALT/SGPT) 22, Alkaline Phosphatase 90, Total Bilirubin 0.3, Total Protein 6.7 #, Albumin 3.3 Vital Signs Date Time Temp Pulse Resp B/P (MAP) Pulse Ox O2 Delivery O2 Flow Rate FiO2 06/13/17 11:07 18 06/13/17 10:00 98.0 111 92/48 (63) 97 Room Air I&O- Last 24 Hours up to 6 AM 06/14/17 06:00 Intake Total 0 ml Output Total 550 ml Balance -550 ml DOMINIQUE NGUYEN DO Jun 13, 2017 13:23
[2017-06-13 13:28] LABS: CALCIUM LEVEL 8.9 MG/DL (8.5-10.1); CREATININE FOR GFR 1.75 MG/DL (0.70-1.30); GLOMERULAR FILTRATION RATE 46.7 (>60); POTASSIUM SERUM 4.3 MEQ/L (3.5-5.1)
[2017-06-13] MEDS ORDERED: D5W/0.2% SODIUM CHLORIDE 1,000 ML IV SCH (13:45)
[2017-06-13] MEDS: LORazepam 2 MG/ML VIAL (J2060) IV PRN ×2 (13:50→21:27)
[2017-06-13 14:00] VITALS: BP 102/78
[2017-06-13 16:29] LABS: CALCIUM LEVEL 8.9 MG/DL (8.5-10.1); CREATININE FOR GFR 1.54 MG/DL (0.70-1.30); GLOMERULAR FILTRATION RATE 54.1 (>60); POTASSIUM SERUM 4.2 MEQ/L (3.5-5.1)
[2017-06-13] MEDS: MORPHINE 2 MG/ML 1ML SYRINGE IV PRN (16:49)
[2017-06-13] MEDS ORDERED: D5W 1,000 ML IV SCH (17:30)
[2017-06-13] MEDS ORDERED: D5W 1000 ML IV ONE (17:45)
[2017-06-13 18:00] VITALS: BP 106/58
[2017-06-13 19:24] LABS: OSMOLALITY URINE 556 MOSM/KG (500-800)
--- NOTE | 2017-06-13 20:09 | IPNPDOC ---
Subjective General Date/Time Seen The patient was seen on 06/12/17 multiple times for continued discussion regarding care. Subject Chief Complaint/History The patient is a 36-year-old male admitted with a reason for visit of SBO. Current Medications Current Medications Current Medications Acetaminophen (Tylenol Tab) 650 mg Q4HP PRN PO MILD PAIN or TEMP > 101; Start 06/08/17 at 16:45; Stop 06/08/17 at 19:28; Status DC Acetaminophen/ Hydrocodone Bitart ([place], Anexsia 5/325) 1 tab Q4HP PRN PO MODERATE PAIN (PS 5-7); Start 06/08/17 at 16:45; Stop 06/08/17 at 19:28; Status DC Acyclovir (Zovirax) 400 mg TIDP PRN PO COLD SORES; Start 06/08/17 at 16:45; Stop 06/08/17 at 19:28; Status DC Calcium Carbonate (Calcium Carbonate) 1,250 mg TID PO ; Start 06/08/17 at 21:00 ; Stop 06/08/17 at 21:00; Status DC Carbamazepine (TEGretol SUSPENSION) 200 mg QHS PO ; Start 06/08/17 at 21:00; Stop 06/08/17 at 21:00; Status DC Carbamazepine (TEGretol SUSPENSION) 300 mg BID@0900,1600 PO ; Start 06/08/17 at 16:00; Stop 06/08/17 at 19:28; Status DC Cetirizine HCl (ZyrTEC) 10 mg QHS PO ; Start 06/08/17 at 21:00; Stop 06/08/17 at 21:00; Status DC Dextrose/Sodium Chloride 1,000 ml @ 75 mls/hr [id number] IV Last administered on 06/13/17 11:07; Start 06/13/17 at 09:15; Stop 06/13/17 at 13:42; Status DC Dextrose/Sodium Chloride 1,000 ml @ 125 mls/hr Q8H IV Last administered on 16:25; Start 06/13/17 at 13:45; Stop 06/13/17 at 17:26; Status DC Dextrose/Water 1,000 ml @ 100 mls/hr Q10H IV Last administered on 06/13/17 18:36; Start 06/13/17 at 17:30; Stop 07/13/17 at 17:29 Diphenhydramine HCl (Benadryl) 25 mg Q4H PRN PO ALLERGY SYMPTOMS; Start at 16:45; Stop 06/08/17 at 19:28; Status DC Enoxaparin Sodium (Lovenox) 30 mg DAILY SC ; Start 06/09/17 at 09:00; Stop at 09:00; Status DC Ertapenem 0.5 gm/ Sodium Chloride 50 ml @ 100 mls/hr Q24H IV Last administered on 06/13/17 03:58; Start 06/13/17 at 04:00; Stop 06/20/17 at 03: 59 Ertapenem 1 gm/ Sodium Chloride 50 ml @ 100 mls/hr Q24H IV Last administered on 06/12/17 13:00; Start 06/12/17 at 13:00; Stop 06/13/17 at 02:54; Status DC Ertapenem 1 gm/ Sodium Chloride 50 ml @ 100 mls/hr Q24H IV ; Start 06/13/17 at 03:00; Stop 06/13/17 at 03:05; Status DC Home Med (Med Rec Complete!) ASDIRECTED XX ; Start 06/08/17 at 16:00; Stop at 16:00; Status DC Hydroxyzine HCl (Atarax) 25 mg QID PRN PO ITCHING; Start 06/08/17 at 16:45; Stop 06/08/17 at 19:28; Status DC Lactated Ringer's 1,000 ml @ 150 mls/hr Q6H40M IV Last administered on 03:35; Start 06/08/17 at 16:36; Stop 06/09/17 at 08:07; Status DC Lorazepam (Ativan) 0.5 mg Q4HP PRN IV AGITATION Last administered on 13:50; Start 06/13/17 at 13:30; Stop 06/20/17 at 13:29 Lorazepam (Ativan) 1 mg Q2HP PRN IV ANXIETY Last administered on 06/10/17 01: 30; Start 06/08/17 at 19:30; Stop 06/10/17 at 08:27; Status DC Lorazepam (Ativan) 1 mg Q2HP PRN SL ANXIETY; Start 06/10/17 at 08:30; Stop at 08:30; Status DC Lorazepam (Ativan) 1 mg Q2HP PRN SL AGITATION Last administered on 06/11/17 17:58; Start 06/10/17 at 08:45; Stop 06/11/17 at 19:04; Status DC Lorazepam (Ativan) 1 mg Q4HP PRN SL AGITATION Last administered on 06/13/17 06:12; Start 06/11/17 at 19:15; Stop 06/13/17 at 13:33; Status DC Lorazepam (Ativan) 2 mg STAT STAT IM Last administered on 06/12/17 15:38; Start 06/12/17 at 15:38; Stop 06/12/17 at 15:40; Status DC Metoclopramide HCl (REGLAN INJection) 5 mg Q6HP PRN IV NAUSEA OR VOMITING; Start 06/09/17 at 09:30; Stop 06/10/17 at 08:27; Status DC Morphine Sulfate (Morphine Sulfate Inj) 1 mg Q4HP PRN IV PAIN Last administered on 06/13/17 16:49; Start 06/13/17 at 13:30; Stop 06/20/17 at 13: 29 Morphine Sulfate (Morphine Sulfate Inj) 2 mg Q2HP PRN IV SEVERE PAIN (PS 8-10) ; Start 06/08/17 at 16:45; Stop 06/08/17 at 19:28; Status DC Morphine Sulfate (Morphine Sulfate Oral Solution) 2 mg Q4HP PRN SL SEVERE PAIN (PS 8-10) Last administered on 06/13/17 11:07; Start 06/12/17 at 15:45; Stop 06/13/17 at 13:33; Status DC Morphine Sulfate (Roxanol) 2 mg Q2HP PRN SL SEVERE PAIN (PS 8-10) Last administered on 06/11/17 17:58; Start 06/08/17 at 19:30; Stop 06/11/17 at 19 :04; Status DC Morphine Sulfate (Roxanol) 2 mg Q4HP PRN SL SEVERE PAIN (PS 8-10) Last administered on 06/12/17 15:14; Start 06/11/17 at 19:15; Stop 06/12/17 at 15 :45; Status DC Octreotide Acetate (SandoSTATIN) 100 mcg BID SC ; Start 06/08/17 at 21:00; Stop 06/08/17 at 21:00; Status DC Ondansetron HCl (ZOFRAN INJection) 4 mg Q6HP PRN IV NAUSEA OR VOMITING; Start 06/08/17 at 16:45; Stop 06/08/17 at 19:28; Status DC Ondansetron HCl (ZOFRAN INJection) 4 mg Q6HP PRN IV NAUSEA OR VOMITING Last administered on 06/09/17t 23:28; Start 06/08/17 at 19:30; Stop 06/10/17 at 08 :28; Status DC Ondansetron HCl (Zofran Odt) 4 mg Q6HP PRN PO NAUSEA OR VOMITING; Start at 08:45; Stop 07/10/17 at 08:44 Pantoprazole Sodium (Protonix) 40 mg DAILY IV ; Start 06/09/17 at 09:00; Stop 06/09/17 at 09:00; Status DC Phenytoin (Dilantin Chewable) 100 mg BID@0900,1600 PO ; Start 06/08/17 at 16:00 ; Stop 06/08/17 at 16:56; Status DC Phenytoin (Dilantin Chewable) 100 mg BID@1200,2100 PO ; Start 06/08/17 at 21:00 ; Stop 06/08/17 at 21:00; Status DC Phenytoin (Dilantin Chewable) 150 mg QAM PO ; Start 06/09/17 at 09:00; Stop at 09:00; Status DC Potassium Chloride/Dextrose/ Sod Cl 1,000 ml @ 150 mls/hr Q6H40M IV ; Start at 12:00; Stop 06/12/17 at 18:00; Status DC Scopolamine (Transderm-Scop) 1.5 mg Q3DP PRN TD EXCESSIVE SECRETIONS; Start at 19:30; Stop 06/12/17 at 12:15; Status DC Simethicone (Mylicon) 160 mg TID PO ; Start 06/08/17 at 21:00; Stop 06/08/17 at 21:00; Status DC Sodium Chloride 1,000 ml @ 100 mls/hr Q10H IV Last administered on 06/08/17t 13:13; Start 06/08/17 at 13:13; Stop 06/08/17 at 18:34; Status DC Sodium Chloride 1,000 ml @ 125 mls/hr Q8H IV Last administered on 06/13/17t 02:22; Start 06/12/17 at 18:00; Stop 06/13/17 at 09:21; Status DC Vitamin D (Vitamin D) 5,000 units DAILY PO ; Start 06/09/17 at 09:00; Stop at 09:00; Status DC Allergies Coded Allergies: Cephalosporins (Verified Allergy, Intermediate, KEFLEX AND CECLOR-HIVES AND SWELLING(non-specific), 02/02/14) Replaces KEFUROX 1.5 G REPORTED HIVES AND SWELLING TO KEFLEX AND CECLOR SWELLING TO PCN Metronidazole (Verified Allergy, Intermediate, RASH/HIVES, 11/17/12) Penicillins (Verified Allergy, Intermediate, SWELLING (non-specific), 02/02) SWELLING: TOLERATES INVANZ Lactose (Verified Allergy, Mild, 11/17/12) Bee Venom (Verified Allergy, Unknown, 11/17/12) Cefaclor (Verified Allergy, Unknown, 12/15/16) Gentamicin (Verified Allergy, Unknown, 11/17/12) Grass (Verified Allergy, Unknown, 06/30/11) Molds & Smuts (Verified Allergy, Unknown, 11/17/12) POLLEN (Verified Allergy, Unknown, 06/30/11) Quinolones (Verified Allergy, Unknown, CIPRO, 11/17/12) Erythromycin (Verified Adverse Reaction, Unknown, 11/17/12) Objective Physical Examination Examination GENERAL APPEARANCE:[Patient seen, laying in bed, awake, alert, and oriented. Comfortable, in no acute distress]. SKIN: [Warm and moist]. HEENT: [Normocephalic, atraumatic. [place] palpebral conjunctiva, anicteric sclerae. Lips and mucosa appear moist]. NECK: [Supple, no thyromegaly. No obvious jugular venous distention]. LUNGS: [Clear to auscultation bilaterally. No wheezing appreciated]. HEART: [No chest wall abnormalities. Regular rate and rhythm with no murmurs appreciated]. ABDOMEN: Abdomen is , soft, . [No hepatosplenomegaly. No umbilical or groin herniations, nondistended. No noticeable rebound or guarding. No grimacing with palpation. No rebound tenderness. No masses appreciated]. EXTREMITIES: [Extremities have no deformities. No edema identified]. Vital Signs Vital Signs Date Time Temp Pulse Resp B/P (MAP) Pulse Ox O2 Delivery O2 Flow Rate FiO2 06/13/17 18:00 97.9 82 19 106/58 (74) 95 Room Air I&Os I&O- Last 24 Hours up to 6 AM 06/14/17 06:00 Intake Total 1650.0 ml Output Total 550 ml Balance 1100.0 ml Laboratory Data Labs 24H Laboratory Tests 2 06/13/17 05:37: Nucleated Red Blood Cells % (auto) 0.0, Anion Gap 15, Glomerular Filtration Rate 27.1L, Blood Urea Nitrogen 105H, Creatinine 2.80#H, Sodium Level 154#H, Potassium Level 4.3, Chloride Level 123H, Carbon Dioxide Level 16L, Calcium Level 8.6, Aspartate Amino Transf (AST/SGOT) 14, Alanine Aminotransferase (ALT/ SGPT) 22, Alkaline Phosphatase 90, Total Bilirubin 0.3, Total Protein 6.7#, Albumin 3.3, Albumin/Globulin Ratio 0.97L 06/13/17 12:57: Anion Gap 12, Glomerular Filtration Rate 46.7L, Blood Urea Nitrogen 84H, Creatinine 1.75H, Sodium Level 157H, Potassium Level 4.3, Chloride Level 127H, Carbon Dioxide Level 18L, Calcium Level 8.9 06/13/17 15:54: Anion Gap 11, Glomerular Filtration Rate 54.1L, Blood Urea Nitrogen 78H, Creatinine 1.54H, Sodium Level 159H, Potassium Level 4.2, Chloride Level 129H, Carbon Dioxide Level 19L, Calcium Level 8.9 06/13/17 18:39: Urine Random Osmolality 556, Urine Random Sodium 13, Osmolality 351H CBC/BMP Laboratory Tests 06/13/17 05:37 Red Blood Count 3.03 L, Mean Corpuscular Volume 90.4, Mean Corpuscular Hemoglobin 31.0, Mean Corpuscular Hemoglobin Concent 34.3, Red Cell Distribution Width 13.5, Calcium Level 8.6, Aspartate Amino Transf (AST/SGOT) 14 , Alanine Aminotransferase (ALT/SGPT) 22, Alkaline Phosphatase 90, Total Bilirubin 0.3, Total Protein 6.7 #, Albumin 3.3 06/13/17 12:57 Calcium Level 8.9 06/13/17 15:54 Calcium Level 8.9 Plan / VTE VTE Prophylaxis Ordered?: No VTE Exclusion Mechanical Proph: Other KRYSTAL ASHFORD MD Jun 13, 2017 20:09
[2017-06-13] MEDS ORDERED: SCOPOLAMINE 1.5 MG TRANSDERMAL TOP PRN (21:00)
[2017-06-13] MEDS ORDERED: SODIUM CHLORIDE 0.9% INJ 10 ML SYR IV PRN (21:00)
--- NOTE | 2017-06-13 23:37 | IPNPDOC ---
Subjective Date Seen The patient was seen on 06/13/17. Subjective Chief Complaint/HPI The patient is a 36-year-old male admitted with a reason for visit of SBO. Events since last encounter Patient seen today, family at the bedside. Found to be hypernatremic this a.m. , though with improving creatinine. Discussed with family. Family, especially mother, voiced concern that patient would be dehydrated and in a similar situation again shortly after hospital discharge. Mother also voices as concern that his feet are pink and warm, states they have previously been purple and cool, wonders if he might have cellulitis. General: Reports: ROS Unobtainable Objective Physical Examination General Exam: Positive: Alert, No Acute Distress, Other (cachectic) Chest Exam: Positive: Clear to auscultation, Normal air movement Heart Exam: Positive: Tachycardic Abdomen Exam: Positive: Normal bowel sounds Extremity Exam: Positive: Other (skin of feet pink, do not appear tender to palpation, no clearly demarcated border), Negative: Edema Assessment /Plan Problems (1) Comfort measures only status Problem Text: Family spoke with Dr. Mcduffie, from nephrology, and elected [employer] status again, withdrawing active treatment. [employer] orders placed. (2) Hypernatremia Status: Acute Problem Specific Plan: Consult Specialist Problem Text: Patient had a normal sodium yesterday, was found to be hypernatremic on labs today. IV fluids were adjusted and sodium was rechecked, but sodium was found to be worsening. Nephro was consulted. (3) Complication of ostomy Status: Acute Problem Text: High output contributes to dehydration. Discussed option of IVFs through the infusion center as an outpatient after discharge. Parents are reluctant to consider another housing option for their son where he could get IVFs regularly, stating that "he loves it" at the [facility]. (4) Acute renal injury due to hypovolemia Status: Acute Problem Text: Despite rehydration, electrolyte abnormalities worsening. Nephrology consulted. (5) Intellectual disability Status: Chronic Problem Text: Lives with [facility] Plan/VTE VTE Prophylaxis Ordered?: No VTE Exclusion Mechanical Proph: Other VS, I&O, 24H, Fishbone Vital Signs/I&O Vital Signs Date Time Temp Pulse Resp B/P (MAP) Pulse Ox O2 Delivery O2 Flow Rate FiO2 06/13/17 18:00 97.9 82 19 106/58 (74) 95 Room Air I&O- Last 24 Hours up to 6 AM 06/14/17 06:00 Intake Total 1650.0 ml Output Total 550 ml Balance 1100.0 ml Laboratory Data 24H LABS Laboratory Tests 2 06/13/17 05:37: Nucleated Red Blood Cells % (auto) 0.0, Anion Gap 15, Glomerular Filtration Rate 27.1L, Blood Urea Nitrogen 105H, Creatinine 2.80#H, Sodium Level 154#H, Potassium Level 4.3, Chloride Level 123H, Carbon Dioxide Level 16L, Calcium Level 8.6, Aspartate Amino Transf (AST/SGOT) 14, Alanine Aminotransferase (ALT/ SGPT) 22, Alkaline Phosphatase 90, Total Bilirubin 0.3, Total Protein 6.7#, Albumin 3.3, Albumin/Globulin Ratio 0.97L 06/13/17 12:57: Anion Gap 12, Glomerular Filtration Rate 46.7L, Blood Urea Nitrogen 84H, Creatinine 1.75H, Sodium Level 157H, Potassium Level 4.3, Chloride Level 127H, Carbon Dioxide Level 18L, Calcium Level 8.9 06/13/17 15:54: Anion Gap 11, Glomerular Filtration Rate 54.1L, Blood Urea Nitrogen 78H, Creatinine 1.54H, Sodium Level 159H, Potassium Level 4.2, Chloride Level 129H, Carbon Dioxide Level 19L, Calcium Level 8.9 06/13/17 18:39: Urine Random Osmolality 556, Urine Random Sodium 13, Osmolality 351H CBC/BMP Laboratory Tests 06/13/17 05:37 Red Blood Count 3.03 L, Mean Corpuscular Volume 90.4, Mean Corpuscular Hemoglobin 31.0, Mean Corpuscular Hemoglobin Concent 34.3, Red Cell Distribution Width 13.5, Calcium Level 8.6, Aspartate Amino Transf (AST/SGOT) 14 , Alanine Aminotransferase (ALT/SGPT) 22, Alkaline Phosphatase 90, Total Bilirubin 0.3, Total Protein 6.7 #, Albumin 3.3 06/13/17 12:57 Calcium Level 8.9 06/13/17 15:54 Calcium Level 8.9 DOMINIQUE NGUYEN DO Jun 13, 2017 23:37
[2017-06-14] MEDS: MORPHINE 2 MG/ML 1ML SYRINGE IV PRN ×2 (00:29→05:38)
[2017-06-14] MEDS ORDERED: LORazepam 0.5 MG TAB PO PRN ×2 (11:30→19:15)
[2017-06-14] MEDS: MORPHINE 10MG/0.5ML ORAL CONCENTRATE SOLUTION U/D SL PRN ×2 (11:54→17:18)
--- NOTE | 2017-06-14 14:31 | CR ---
DATE OF CONSULTATION: 06/12/2017 REASON FOR CONSULTATION: Medical management in patient with ischemic bowel. 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 He was admitted under the general surgery service 06/08/2017 for a small bowel obstruction and likely bowel ischemia. At that time, he was having multiple episodes of vomiting and so presented to the emergency department, and an x-ray showed a small bowel obstruction. He underwent a CT of his abdomen and pelvis that showed extensive pneumatosis intestinalis and suggested widespread ischemic bowel. He then subsequently underwent a contrast study and did not show any superior mesenteric arterial embolism, thrombus, or portal venous thrombosis. His family elected to have him to be managed medically with comfort measures only. The patient has been managed with comfort measures for the last 3 days and, therefore, did not have any repeat laboratory studies done since that time. He has not taken anything by mouth and has not had any urine output in the last 3 days. Today, he started to show some improvement in his ostomy. Dr. Olivas states this had previously appeared to be dusky in color but is now pink. He underwent a repeat CT scan of his abdomen yesterday without contrast that showed that the pneumatosis intestinalis and portal venous gas had significantly decreased. Therefore, family elected to stop comfort measures and return to medical therapy for him. A peripherally inserted central catheter (PICC) line was attempted to be placed today, as we were unable to get a peripheral line or draw laboratories from him. The PICC line was ultimately unsuccessful. Dr. Olivas plans to place a central line today. PAST MEDICAL HISTORY: 1. Seizure disorder. 2. Mental retardation is profound due to anoxic brain damage. 3. Gastroesophageal reflux disease (GERD). 4. Osteoporosis. 5. Chronic normocytic anemia. 6. Herpes stomatitis. 7. Chronic constipation. 8. 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 9. Chronic hyponatremia. 10. Acne. 11. Legal blindness. 12. Chronic sinusitis. SURGICAL HISTORY: 1. Left inguinal hernia repair. 2. Prolapsed ileostomy, parastomal hernia. 3. Prolapsed ileostomy and parastomal hernia, status post open repair. 4. Total colectomy. 5. Ileostomy revision with lysis of adhesions due to intestinal prolapse in 2013. 6. Ileostomy revision with transfer to left lower quadrant by Dr. Reyes in 2014. HOME MEDICATIONS: - Reclast 6 mg intravenous (IV) once a year - cetirizine one tablet by mouth daily - multivitamin liquid one teaspoon by mouth daily - MCT oil 14 grams/15 mL three times a day - Entocort EC 3 mg three times daily with meals - calcium liquid 1250 mg/5 mL suspension one teaspoon by mouth three times daily - cholecalciferol 5000 units by mouth daily - Dilantin 50 mg chewable tablets, take three tablets in the morning, two tablets at noon, and two tablets in the evening - Tegretol 100 mg/5 mL, take 15 mL in the morning and 15 mL in the afternoon, and 10 mL in the evening - simethicone 80 mg two tablets by mouth after meals three times daily - octreotide 50 mcg/mL, take 1 mL by injection twice a day - Maalox regular strength suspension liquid 200/220 mg/5 mL for use around stomas irritation twice a day as needed - Zovirax 400 mg by mouth three times daily as needed for cold sores - EpiPen one injection intramuscular as needed - hydroxyzine 25 mg by mouth every 12 hours as needed for pruritus - CeraVe cream externally three times daily to bilateral lower legs - ketoconazole 2% cream, one application to left shoulder once a day SOCIAL HISTORY: The patient lives with his parents. He is not a smoker. Does not consume alcohol. DRUG ALLERGIES: CECLOR. KEFLEX. PENICILLIN. GENTAMICIN. ERYTHROMYCIN. GARAMYCIN. OPHTHALMIC DROPS. BEE STINGS. CIPROFLOXACIN. FLAGYL. REVIEW OF SYSTEMS: Is unobtainable as the patient is not able to communicate currently. PHYSICAL EXAMINATION: VITAL SIGNS: Temperature 97.4, pulse 96, respirations 17, blood pressure 76/51, pulse oximetry 85% on room air. GENERAL APPEARANCE: The patient is very thin and emaciated. He is in no apparent distress. HEENT: Mucous membranes are dry. Lips are dry. Extraocular movements appear intact. CHEST: No chest wall abnormalities. Normal respiratory motion and effort. LUNGS: Are clear to auscultation bilaterally. No wheezes, rales, or rhonchi. HEART: Regular rate and rhythm with no murmurs. NECK: Is supple. No thyromegaly. No masses. No lymphadenopathy. ABDOMEN: Is soft, nondistended. The patient does not react when abdomen is palpated. No obvious hernias. Left lower quadrant ileostomy noted with small amount of brown fluid in the bag, and ileostomy appears pink. SKIN: Is warm and dry. EXTREMITIES: No deformities. No lower extremity edema. NEUROLOGIC: The patient is nonverbal. LABORATORIES: Laboratories on 06/08/2017 include white blood cells of 20.1, hemoglobin of 12.1, hematocrit 33.9, platelets 522. Sodium 129, potassium 3.9, chloride 98, carbon dioxide 19, BUN 30, creatinine 1.83, GFR 44.3, fasting glucose was 133, lactic acid done at that time was 2.1, AST was 38, alkaline phosphatase was 159. IMAGING STUDIES: Reviewed as above. In addition, a chest x-ray was done on 06/08/2017 that was normal. ASSESSMENT AND PLAN: This is a 36-year-old man with: 1. Ischemic bowel, nonocclusive. The etiology of this is uncertain, though Dr. Olivas suspects he may have had an infection, or this may have been due to dehydration. A CTA was done shortly after admission that did not show any sign of mesenteric embolism. At this point, this seems to be improving, and so family has elected to restart former medical therapies. Ischemic bowel will continue to be managed by Dr. Olivas. The patient is currently receiving ertapenem 1 gram IV every 24 hours per general surgeon. He also has morphine sulfate 2 mg sublingual every 4 hours as needed for severe pain and Zofran 4 mg every 6 hours as needed for nausea or vomiting. 2. Oliguria. The patient had no urine output since admission. However, his mother states that today he was incontinent of urine while he was in the cath laboratory trying to have a PICC line placed. We need to have laboratories drawn to determine what his current renal function is. He probably will need to be further hydrated. I discussed with family options in case renal function is quite poor, and they are not interested in pursuing dialysis for him. He is currently receiving D5 half-normal saline with 20 of potassium chloride at 150 mL/hour. He currently has a Bear catheter in place for documenting intake and output (I and O). We will hydrate him as needed based on results of pending studies. 3. Difficulty obtaining IV access. Dr. Olivas will attempt to place a central line today. Once this is placed, we should be able to draw laboratories, including basic metabolic profile (BMP) and complete blood count (CBC). 4. Hyponatremia. The patient was hyponatremic upon admission, and this appears to be chronic and was approximately at his baseline sodium. This may need to be further addressed once we have repeat laboratory work. 5. Seizure disorder. The patient's family strongly wants his seizure medications to be restarted. I do not believe he has had any seizures since he has been here. We need to establish his current kidney function before we can restart his seizure medications. 6. Ileostomy and short-gut syndrome. The patient is currently nothing by mouth. He has many medications that are used if he were to start eating, and these may need to be restarted if he starts to eat and has gastrointestinal (GI) symptoms. These medications include octreotide, simethicone, Maalox. We will continue to follow the patient and will make further adjustments once laboratory results are available. [facility]ITAL[facility]
--- NOTE | 2017-06-14 17:36 | CR ---
DATE OF CONSULTATION: 06/13/2017 REQUESTING PHYSICIAN: Roya Mckoy DO CONSULTING PHYSICIAN: Jesus Mcduffie MD REASON FOR CONSULTATION: Management of acute kidney injury and hypernatremia. CHIEF COMPLAINT: Patient was admitted on 06/09/2017, with generalized weakness, nausea, and vomiting. NOTE: History was obtained from patient's chart and from patient's parents at the bedside. Patient himself is unable to provide any reliable history at this time. HISTORY OF PRESENT ILLNESS: Chuck Ott is a 36-year-old male with past medical history of mental retardation secondary to anoxic brain injury at . He is known to nephrology service from a previous admission. He has a history of ileostomy which has high output and history of dehydration and acute kidney injury in the past as well. Patient was admitted again at this time because of weight loss, generalized weakness, nausea, and vomiting, and initial workup during this admission showed that patient had pneumatosis intestinalis. He was given fluid and antibiotics. Initially, patient was made comfort measures only, however after some time he started clinically improving and his comfort measures only orders were rescinded. Patient was started on IV fluid hydration with normal saline but his sodium level today morning was 154 which kept on rising to 159, so nephrology service was called for further help in the management of hypernatremia. Moreover, when patient was admitted to the hospital his creatinine was 1.8, which got worse yesterday, it was 6.8 yesterday, the patient is in acute renal failure as well. PAST MEDICAL HISTORY: Patient has a past medical history of mental retardation secondary to anoxic brain injury, history of seizure disorder, history of ileostomy with high output causing dehydration and acute kidney injury in the past as well, history of electrolyte abnormality in the past, chronic anemia, malnutrition. PAST SURGICAL HISTORY: Patient has a history of a colectomy and ileostomy in the past, history of small bowel resection in 2012, and history of repair of ileostomy collapse. ALLERGIES: Patient is allergic to CEFACLOR, ERYTHROMYCIN, GENTAMICIN, grass, LACTOSE, FLAGYL, pollen, PENICILLINS, and QUINOLONES. FAMILY HISTORY: No significant family history of end-stage renal disease requiring hemodialysis. SOCIAL HISTORY: Patient is a resident of [facility] ([facility]) for many years. His mother is the decision maker. His stepfather was also present at the bedside. REVIEW OF SYSTEMS: Patient is unable to provide any review of systems at this time, but his mother is reporting he has had been admitted to the hospital multiple times with dehydration, volume depletion, and high output ileostomy. Patient has been losing weight, he has malnutrition. PHYSICAL EXAMINATION: GENERAL: Patient is drowsy, eyes closed, but arousable, laying in the bed. VITAL SIGNS: Temperature is 97.9 degrees Fahrenheit, blood pressure is 106/58, pulse is 82, respiratory rate of 19, saturating 95% on room air. Intake and output: Urine output recorded is 625 mL yesterday, 925 mL so far today since overnight. HEAD and NECK EXAM: Pupils are equally round and reactive to light. Mucous membranes are dry. Neck is supple, there is no jugular venous distention (JVD). CARDIOVASCULAR: S1, S2, regular rate. No murmur, rub, or gallop. RESPIRATORY: Chest is clear to auscultation bilaterally. Bilateral equal air entry. No rales or rhonchi. ABDOMEN: Soft. Mildly tender to deep palpation all over. He has a left lower quadrant ileostomy with liquid greenish stools in the bag. MUSCULOSKELETAL: No clubbing or cyanosis. Pulses are 2+. No edema of the extremities. CENTRAL NERVOUS SYSTEM (COMBINATION OPERATOR): Patient is nonverbal, he does not communicate, he cannot follow commands, but he is arousable at this time. SKIN: No rashes or ulcers. LABORATORY REVIEW: CBC showed WBC 22.5, hemoglobin is 9.4, platelets are 322. Urine random osmolality is 556, random sodium is 13. BMP today showed sodium 159, potassium 4.2, chloride 129, bicarbonate 19, BUN 78 , creatinine is 1.5, serum osmolality 351, calcium 8.9. IMAGING: A chest x-ray done yesterday showed patient was rotated, splenic fracture colon was distended with air below the left hemidiaphragm. CURRENT INPATIENT MEDICATIONS: Patient's medications were all reviewed by me. After discussion with family medicine, patient was started on 5% dextrose in water (D5W) at 100 mL/hour. He was also getting ertapenem 0.5 grams IV every 24 hours. Patient was given a bolus of 250 mL of D5W in the evening. He is on as needed Ativan for agitation and as needed morphine for pain. ASSESSMENT: 36-year-old male with past medical history of high output ileostomy , history of dehydration and acute kidney injury in the past, anoxic brain injury, seizure disorder, chronic anemia, admitted at this time initially with pneumatosis intestinalis, nephrology service was called for management of acute kidney injury and hypernatremia. PLAN: 1. Hypernatremia. Patient has high serum osmolality. Urine osmolality is relatively low. Patient is likely having osmotic water losses because of high urea and he is also losing water through the ileostomy. He was initially started on dextrose 5% (D5) half normal saline, but fluids were changed to dextrose 5% in water (D5W). He was also given a bolus of dextrose 5% in water (D5W). However, after discussion with the patient's mother at the bedside, she wants to discontinue all the supportive care and she does not want anymore IV fluid administration at this time because patient has been admitted multiple times because of dehydration, he is unable to maintain hydration at [facility] ([facility]) and [facility] ([facility] is unable to give him IV fluids. So, at this point, patient's mother wants to discontinue all the supportive care. Patient does not even have a percutaneous endoscopic gastrostomy (PEG) and she does not want to get the percutaneous endoscopic gastrostomy (PEG) tube placed in the patient. Encourage oral hydration if patient can tolerate. 2. Goals of care. Patient's mother, again, made the patient comfort measures only with no IV fluids, no antibiotic, no escalation of care. She wants the hospice on board and she wants the patient to be transferred back to [facility] ([facility]) with hospice care. Mother signed the comfort measures only documents again. Plan of care was discussed with the family medicine team, Dr. Roya Mckoy. Thank you for involving us in the care of this patient. Patient has been made comfort measures. Nephrology service will sign off at this time. Rest of the care will be as per the primary team. HINA
--- NOTE | 2017-06-14 19:03 | IPNPDOC ---
Subjective Date Seen The patient was seen on 06/14/17. Subjective Chief Complaint/HPI The patient is a 36-year-old male admitted with a reason for visit of SBO. Events since last encounter Patient is comfortable today. Parents have been ambulating him in a wheelchair. He still has a Bear in place, and mother reports that they are keeping the mitts on him until the Bear can be removed. General: Reports: ROS Unobtainable Objective Physical Examination General Exam: Positive: Alert, No Acute Distress, Other (cachectic) Chest Exam: Positive: Clear to auscultation, Normal air movement Heart Exam: Positive: Tachycardic Abdomen Exam: Positive: Normal bowel sounds Extremity Exam: Positive: Other (skin of feet pink, do not appear tender to palpation, no clearly demarcated border), Negative: Edema Psych Exam: Negative: Anxiety Assessment /Plan Problems (1) Comfort measures only status Problem Text: 06/14 -- Added PO medications in lieu of IV route. He tolerated well, and line and Bear were both ordered removed, with mitts to be removed as well. Mother requests increased dose of anxiety medication. Otherwise, they feel he is comfortable. They request hospice care at [facility]. Family spoke with Dr. Mcduffie, from nephrology, and elected PRESS TENDER STAR SIGNAL status again, withdrawing active treatment. PRESS TENDER STAR SIGNAL orders placed. (2) Hypernatremia Status: Acute Problem Specific Plan: Consult Specialist Problem Text: Patient had a normal sodium yesterday, was found to be hypernatremic on labs today. IV fluids were adjusted and sodium was rechecked, but sodium was found to be worsening. Nephro was consulted. (3) Complication of ostomy Status: Acute Problem Text: High output contributes to dehydration. Discussed option of IVFs through the infusion center as an outpatient after discharge. Parents are reluctant to consider another housing option for their son where he could get IVFs regularly, stating that "he loves it" at the [facility] house. (4) Acute renal injury due to hypovolemia Status: Acute Problem Text: Despite rehydration, electrolyte abnormalities worsening. Nephrology consulted. (5) Intellectual disability Status: Chronic Problem Text: Lives with [facility] Plan/VTE VTE Prophylaxis Ordered?: No VTE Exclusion Mechanical Proph: Other VS, I&O, 24H, Fishbone Vital Signs/I&O Vital Signs Date Time Temp Pulse Resp B/P (MAP) Pulse Ox O2 Delivery O2 Flow Rate FiO2 06/14/17 17:48 18 06/14/17 12:24 Room Air 06/13/17 18:00 97.9 82 106/58 (56) 95 I&O- Last 24 Hours up to 6 AM 06/15/17 06:00 Intake Total 550 ml Output Total 100 ml Balance 450 ml DOMINIQUE NGUYEN DO Jun 14, 2017 19:03
--- NOTE | 2017-06-15 09:04 | REP ---
Procedure: PICC line insertion with Site-Rite The procedure was performed under the direct supervision of Dr. Naidu. The risks and benefits of the procedure were explained to the patient and informed consent was obtained. The left brachial vein was localized using ultrasound guidance. The skin was prepped and draped in a sterile fashion. 2% lidocaine was used as a local anesthetic. Using ultrasound guidance the brachial vein was cannulated and a 0.018 guidewire was inserted however it only be advanced to the level of the axillary region. This may be due to venous spasm, possible occlusion or, even though there was adequate these return the guide wire may have been tracking alongside the vein. Multiple attempts were tried however the guidewire could not be advanced. The needle and guidewire were then removed. The the patient tolerated the procedure well and there were no immediate complications. 0.8 minutes of fluoro time was utilized for this procedure. Reviewed by AMARI Rowland 06/12/2017 08:29 PSigned by Saulo Naidu MD 06/15/2017 08:55 A
[2017-06-15] MEDS: MORPHINE 10MG/0.5ML ORAL CONCENTRATE SOLUTION U/D SL PRN (09:37)
[2017-06-15] MEDS ORDERED: Scopolamine TOP (10:52)
[2017-06-15] MEDS ORDERED: MORP20SO3 SL (10:52)
[2017-06-15] MEDS ORDERED: ATIV1TAB10 PO (10:52)
--- NOTE | 2017-06-15 10:58 | IPNPDOC ---
Subjective General Date/Time Seen The patient was seen on 06/15/17 at 09:00 Subject Chief Complaint/History The patient is a 36-year-old male admitted with a reason for visit of SBO. Events over the weekend noted and discussed with the parents and the nursing staff. 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 After being given this information, extensive talk with family, the primary care providers have that to decision to make him comfort measures only. He actually looks comfortable this morning, responding well to verbal cues. Mom reports he has an appetite and he is eating pured food. Current Medications Current Medications Current Medications Acetaminophen (Tylenol Tab) 650 mg Q4HP PRN PO MILD PAIN or TEMP > 101; Start 06/08/17 at 16:45; Stop 06/08/17 at 19:28; Status DC Acetaminophen/ Hydrocodone Bitart ([place], [place] 5/325) 1 tab Q4HP PRN PO MODERATE PAIN (PS 5-7); Start 06/08/17 at 16:45; Stop 06/08/17 at 19:28; Status DC Acyclovir (Zovirax) 400 mg TIDP PRN PO COLD SORES; Start 06/08/17 at 16:45; Stop 06/08/17 at 19:28; Status DC Calcium Carbonate (Calcium Carbonate) 1,250 mg TID PO ; Start 06/08/17 at 21:00 ; Stop 06/08/17 at 21:00; Status DC Carbamazepine (TEGretol SUSPENSION) 200 mg QHS PO ; Start 06/08/17 at 21:00; Stop 06/08/17 at 21:00; Status DC Carbamazepine (TEGretol SUSPENSION) 300 mg BID@0900,1600 PO ; Start 06/08/17 at 16:00; Stop 06/08/17 at 19:28; Status DC Cetirizine HCl (ZyrTEC) 10 mg QHS PO ; Start 06/08/17 at 21:00; Stop 06/08/17 at 21:00; Status DC Dextrose/Sodium Chloride 1,000 ml @ 75 mls/hr [id number] IV Last administered on 10/28/17at 11:07; Start 06/13/17 at 09:15; Stop 06/13/17 at 13:42; Status DC Dextrose/Sodium Chloride 1,000 ml @ 125 mls/hr Q8H IV Last administered on 16:25; Start 06/13/17 at 13:45; Stop 06/13/17 at 17:26; Status DC Dextrose/Water 1,000 ml @ 100 mls/hr Q10H IV Last administered on 06/13/17 18:36; Start 06/13/17 at 17:30; Stop 06/13/17 at 20:13; Status DC Diphenhydramine HCl (Benadryl) 25 mg Q4H PRN PO ALLERGY SYMPTOMS; Start at 16:45; Stop 06/08/17 at 19:28; Status DC Enoxaparin Sodium (Lovenox) 30 mg DAILY SC ; Start 06/09/17 at 09:00; Stop at 09:00; Status DC Ertapenem 0.5 gm/ Sodium Chloride 50 ml @ 100 mls/hr Q24H IV Last administered on 06/13/17 03:58; Start 06/13/17 at 04:00; Stop 06/13/17 at 20 :14; Status DC Ertapenem 1 gm/ Sodium Chloride 50 ml @ 100 mls/hr Q24H IV Last administered on 06/12/17 13:00; Start 06/12/17 at 13:00; Stop 06/13/17 at 02:54; Status DC Ertapenem 1 gm/ Sodium Chloride 50 ml @ 100 mls/hr Q24H IV ; Start 06/13/17 at 03:00; Stop 06/13/17 at 03:05; Status DC Heparin Sodium (Heparin Lock Flush 10units/ml) 10 units ASDIRECTED PRN IV SEE LABEL COMMENTS Last administered on 06/13/17 21:27; Start 06/13/17 at 21:00; Stop 07/13/17 at 20:59 Home Med (Med Rec Complete!) ASDIRECTED XX ; Start 06/08/17 at 16:00; Stop at 16:00; Status DC Hydroxyzine HCl (Atarax) 25 mg QID PRN PO ITCHING; Start 06/08/17 at 16:45; Stop 06/08/17 at 19:28; Status DC Lactated Ringer's 1,000 ml @ 150 mls/hr Q6H40M IV Last administered on 03:35; Start 06/08/17 at 16:36; Stop 06/09/17 at 08:07; Status DC Lorazepam (Ativan) 0.5 mg Q4HP PRN IV AGITATION Last administered on 21:27; Start 06/13/17 at 13:30; Stop 06/14/17 at 19:04; Status DC Lorazepam (Ativan) 0.5 mg Q4HP PRN PO ANXIETY Last administered on 06/14/17 14:42; Start 06/14/17 at 11:30; Stop 06/14/17 at 19:04; Status DC Lorazepam (Ativan) 1 mg Q2HP PRN IV ANXIETY Last administered on 06/10/17 01: 30; Start 06/08/17 at 19:30; Stop 06/10/17 at 08:27; Status DC Lorazepam (Ativan) 1 mg Q2HP PRN SL ANXIETY; Start 06/10/17 at 08:30; Stop at 08:30; Status DC Lorazepam (Ativan) 1 mg Q2HP PRN SL AGITATION Last administered on 06/11/17 17:58; Start 06/10/17 at 08:45; Stop 06/11/17 at 19:04; Status DC Lorazepam (Ativan) 1 mg Q4HP PRN PO ANXIETY Last administered on 06/14/17 20: 56; Start 06/14/17 at 19:15; Stop 06/21/17 at 19:14 Lorazepam (Ativan) 1 mg Q4HP PRN SL AGITATION Last administered on 06/13/17 06:12; Start 06/11/17 at 19:15; Stop 06/13/17 at 13:33; Status DC Lorazepam (Ativan) 2 mg STAT STAT IM Last administered on 06/12/17 15:38; Start 06/12/17 at 15:38; Stop 06/12/17 at 15:40; Status DC Metoclopramide HCl (REGLAN INJection) 5 mg Q6HP PRN IV NAUSEA OR VOMITING; Start 06/09/17 at 09:30; Stop 06/10/17 at 08:27; Status DC Morphine Sulfate (Morphine Sulfate Inj) 1 mg Q4HP PRN IV PAIN Last administered on 06/14/17 05:38; Start 06/13/17 at 13:30; Stop 06/14/17 at 19 :04; Status DC Morphine Sulfate (Morphine Sulfate Inj) 2 mg Q2HP PRN IV SEVERE PAIN (PS 8-10) ; Start 06/08/17 at 16:45; Stop 06/08/17 at 19:28; Status DC Morphine Sulfate (Morphine Sulfate Oral Solution) 2 mg Q4HP PRN SL SEVERE PAIN (PS 8-10) Last administered on 06/13/17 11:07; Start 06/12/17 at 15:45; Stop 06/13/17 at 13:33; Status DC Morphine Sulfate (Roxanol) 2 mg Q2HP PRN SL SEVERE PAIN (PS 8-10) Last administered on 06/11/17 17:58; Start 06/08/17 at 19:30; Stop 06/11/17 at 19 :04; Status DC Morphine Sulfate (Roxanol) 2 mg Q4HP PRN SL SEVERE PAIN (PS 8-10) Last administered on 06/12/17 15:14; Start 06/11/17 at 19:15; Stop 06/12/17 at 15 :45; Status DC Morphine Sulfate (Roxanol) 5 mg Q2HP PRN SL PAIN Last administered on 09:37; Start 06/14/17 at 11:30; Stop 06/21/17 at 11:29 Octreotide Acetate (SandoSTATIN) 100 mcg BID SC ; Start 06/08/17 at 21:00; Stop 06/08/17 at 21:00; Status DC Ondansetron HCl (ZOFRAN INJection) 4 mg Q6HP PRN IV NAUSEA OR VOMITING; Start 06/08/17 at 16:45; Stop 06/08/17 at 19:28; Status DC Ondansetron HCl (ZOFRAN INJection) 4 mg Q6HP PRN IV NAUSEA OR VOMITING Last administered on 06/09/17 23:28; Start 06/08/17 at 19:30; Stop 06/10/17 at 08 :28; Status DC Ondansetron HCl (Zofran Odt) 4 mg Q6HP PRN PO NAUSEA OR VOMITING; Start at 08:45; Stop 07/10/17 at 08:44 Pantoprazole Sodium (Protonix) 40 mg DAILY IV ; Start 06/09/17 at 09:00; Stop 06/09/17 at 09:00; Status DC Phenytoin (Dilantin Chewable) 100 mg BID@0900,1600 PO ; Start 06/08/17 at 16:00 ; Stop 06/08/17 at 16:56; Status DC Phenytoin (Dilantin Chewable) 100 mg BID@1200,2100 PO ; Start 06/08/17 at 21:00 ; Stop 06/08/17 at 21:00; Status DC Phenytoin (Dilantin Chewable) 150 mg QAM PO ; Start 06/09/17 at 09:00; Stop at 09:00; Status DC Potassium Chloride/Dextrose/ Sod Cl 1,000 ml @ 150 mls/hr Q6H40M IV ; Start at 12:00; Stop 06/12/17 at 18:00; Status DC Scopolamine (Transderm-Scop) 1.5 mg Q3DP PRN TD EXCESSIVE SECRETIONS; Start at 19:30; Stop 06/12/17 at 12:15; Status DC Scopolamine (Transderm-Scop) 1.5 mg Q72H PRN TOP EXCESSIVE SECRETIONS; Start 06/13/17 at 21:00; Stop 07/13/17 at 20:59 Simethicone (Mylicon) 160 mg TID PO ; Start 06/08/17 at 21:00; Stop 06/08/17 at 21:00; Status DC Sodium Chloride 1,000 ml @ 100 mls/hr Q10H IV Last administered on 06/08/17 13:13; Start 06/08/17 at 13:13; Stop 06/08/17 at 18:34; Status DC Sodium Chloride 1,000 ml @ 125 mls/hr Q8H IV Last administered on 06/13/17t 02:22; Start 06/12/17 at 18:00; Stop 06/13/17 at 09:21; Status DC Sodium Chloride (Saline Lock Flush) 10 ml ASDIRECTED PRN IV SEE LABEL COMMENTS Last administered on 06/13/17t 21:27; Start 06/13/17 at 21:00; Stop 07/13/17 at 20:59 Vitamin D (Vitamin D) 5,000 units DAILY PO ; Start 06/09/17 at 09:00; Stop at 09:00; Status DC Allergies Coded Allergies: Cephalosporins (Verified Allergy, Intermediate, KEFLEX AND CECLOR-HIVES AND SWELLING(non-specific), 02/02/14) Replaces KEFUROX 1.5 G REPORTED HIVES AND SWELLING TO KEFLEX AND CECLOR SWELLING TO PCN Metronidazole (Verified Allergy, Intermediate, RASH/HIVES, 11/17/12) Penicillins (Verified Allergy, Intermediate, SWELLING (non-specific), 02/02) SWELLING: TOLERATES INVANZ Lactose (Verified Allergy, Mild, 11/17/12) Bee Venom (Verified Allergy, Unknown, 11/17/12) Cefaclor (Verified Allergy, Unknown, 12/15/16) Gentamicin (Verified Allergy, Unknown, 11/17/12) Grass (Verified Allergy, Unknown, 06/30/11) Molds & Smuts (Verified Allergy, Unknown, 11/17/12) POLLEN (Verified Allergy, Unknown, 06/30/11) Quinolones (Verified Allergy, Unknown, CIPRO, 11/17/12) Erythromycin (Verified Adverse Reaction, Unknown, 11/17/12) Objective Physical Examination Examination GENERAL APPEARANCE: Patient is sitting on a wheelchair, comfortable, responds to verbal cues, awake. Thin-appearing, mildly dehydrated SKIN: Warm and dry. HEENT: Lips are dry, pale palpebral conjunctiva, anicteric sclerae. NECK: Supple, no thyromegaly. No obvious jugular venous distention. LUNGS: Clear to auscultation bilaterally. No wheezing appreciated. HEART: No chest wall abnormalities. Regular rate and rhythm with no murmurs appreciated. ABDOMEN: Abdomen is flat, soft, and nondistended. Ileostomy, pink, viable with normal output, no blood. EXTREMITIES: Extremities have no deformities. No edema identified. Vital Signs Vital Signs Date Time Temp Pulse Resp B/P (MAP) Pulse Ox O2 Delivery O2 Flow Rate FiO2 06/14/17 22:00 Room Air 06/14/17 17:48 18 06/13/17 18:00 97.9 82 106/58 (74) 95 I&Os I&O- Last 24 Hours up to 6 AM 06/16/17 06:00 Output Total 550 ml Balance -550 ml Impression Ischemic bowel resolved The etiology of this is unclear but probably some sort of infection or some mechanical distention causing some impairment in the venous return temporarily. He seems to have recovered well from this. Short gut syndrome Malnutrition Hypernatremia These are all chronic and he has been dealing with this for to hold year with recurrent admissions. It is extending up that he would most likely need constant IV fluids to correct his hypernatremia which is from the electrolyte imbalance from his high ileostomy output. With this in mind, appearance of chosen comfort measures only with hopefully setting him up for hospice visit while he goes home to the [facility] where he has been living. This is currently being set up. 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
--- NOTE | 2017-06-16 16:01 | DSES ---
DATE OF ADMISSION: 06/08/2017 DATE OF DISCHARGE: 06/15/2017 PRIMARY CARE PROVIDER: Cedrick Myers MD ATTENDING PHYSICIAN: Russ Peterson MD HISTORY: This is a 36-year-old male patient who is admitted by Dr. Olivas for weakness, nausea and vomiting. 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 Subsequent multiple obstructions with prolapse of his ileostomy. He has had multiple admissions for dehydration with electrolyte abnormalities from high output from his ileostomy. He has recently lost a significant amount of weight as he is not able to maintain his nutrition in the outpatient setting. His family ultimately refuses placement of PEG tube secondary to the patient's ongoing history of GI abnormalities. Nephrology has been consulted and have offered recommendations in terms of management of his electrolyte abnormalities during previous hospitalizations. During his most recent hospitalization, the patient's family after meeting with Dr. Mcduffie and Dr. Olivas have opted for COMFORT MEASURES ONLY and have opted to give the patient oral comforting medications such as Ativan and Roxanol versus a plan for recurrent treatment and readmission secondary to volume abnormalities and dehydration with hypernatremia. The patient will be discharged to his residence at [facility]. Hospice consult has been placed. They can perform an intake of the patient in the outpatient setting as he has good supportive care in the outpatient setting already coordinated. DISCHARGE DIAGNOSES: Hypernatremia. Ischemic bowel, nonocclusive. Oliguria. Seizure disorder. Ileostomy with short gut syndrome. DISCHARGE PLAN: Will be to discharge to [facility] for COMFORT MEASURES ONLY with a Hospice consult. MEDICATIONS: Include: - Roxanol 5 mg sublingually every 2 hours as needed for pain - lorazepam 1 mg every 4 hours as needed for anxiety - scopolamine patch 1.5 mg topically every 72 hours DISCHARGE PLAN: Will be to followup as needed.
== END 2017-06-15 12:35 | disposition hospice, home (50) | DRG 394 ==
LOC: M ED 12:39 → EDBD 12:39 → M ED INP 16:36 → M MSPAV 18:33
PROVIDERS: ADMIT Surgery; ATTEND Surgery
DX: K55.059 Acute (reversible) ischemia of intestine, part and extent unspecified (principal); K91.2 Postsurgical malabsorption, not elsewhere classified; E87.1 Hypo-osmolality and hyponatremia; F73 Profound intellectual disabilities; G93.1 Anoxic brain damage, not elsewhere classified; E87.0 Hyperosmolality and hypernatremia; N17.9 Acute kidney failure, unspecified; Z68.1 Body mass index [BMI] 19.9 or less, adult; Z51.5 Encounter for palliative care; J30.1 Allergic rhinitis due to pollen; K21.9 Gastro-esophageal reflux disease without esophagitis; K63.89 Other specified diseases of intestine; M81.0 Age-related osteoporosis without current pathological fracture; E83.42 Hypomagnesemia; Z93.2 Ileostomy status; Z90.49 Acquired absence of other specified parts of digestive tract; Z79.899 Other long term (current) drug therapy; Z88.1 Allergy status to other antibiotic agents; Z88.0 Allergy status to penicillin; Z91.030 Bee allergy status